=== PATIENT | male | born 1950 | race Caucasian/White ===

== ENCOUNTER → 2017-10-20 10:07 | Outpatient (CLI) | payer MEDICARE, BC, OTHER, SELFPAY ==
[2017-10-20 12:45] LABS: ALB/GLOB Ratio 0.9 RATIO (0.9-2.4); AST(SGOT) 20 U/L (15-37); Alanine Aminotransfer ALT/SGPT 26 U/L (16-61); Albumin, Serum 3.7 g/dL (3.2-5.0); Alkaline Phosphatase 73 U/L (45-117); Anion Gap 6 (5-15); BUN 12 mg/dL (7-18); BUN/Creat Ratio 14.4 RATIO (10-20); Calcium,Total 9.5 mg/dL (8.5-10.1); Chloride 99 mmol/L (98-107); Cholesterol 151 mg/dL (200); Creatinine, Serum 0.83 mg/dL (0.70-1.30); EST Glomerular Filtration Rate 98 mL/min (>60); Est Glom Filt Rate - Afr Amer 118 mL/min (>60); Glucose 136 mg/dL (74-106); High Density Lipoprotein 46 mg/dL; Potassium 4.1 mmol/L (3.5-5.1); Protein, Total 7.7 g/dL (6.4-8.2); Sodium Level 136 mmol/L (136-145); Triglycerides 92 mg/dL; Very Low Density Lipoprotein 18 mg/dL (5-40)
== END ==
PROVIDERS: Family Provider Family Medicine; PCP Family Medicine; Visit Provider Internal Medicine Endocrinology, Diabetes & Metabolism
DX: E11.65 Type 2 diabetes mellitus with hyperglycemia (principal); E78.2 Mixed hyperlipidemia
CPT/HCPCS: 36415; 80053; 80061

== ENCOUNTER → 2018-01-19 10:20 | Outpatient (CLI) | payer MEDICARE, BC, OTHER, SELFPAY ==
[2018-01-19 12:25] LABS: ALB/GLOB Ratio 0.8 RATIO (0.9-2.4); AST(SGOT) 21 U/L (15-37); Alanine Aminotransfer ALT/SGPT 25 U/L (16-61); Albumin, Serum 3.4 g/dL (3.2-5.0); Alkaline Phosphatase 76 U/L (45-117); Anion Gap 8 (5-15); BUN 6 mg/dL (7-18); BUN/Creat Ratio 8.2 RATIO (10-20); Calcium,Total 9.2 mg/dL (8.5-10.1); Chloride 97 mmol/L (98-107); Creatinine, Serum 0.73 mg/dL (0.70-1.30); EST Glomerular Filtration Rate 114 mL/min (>60); Est Glom Filt Rate - Afr Amer 137 mL/min (>60); Glucose 224 mg/dL (74-106); Potassium 3.8 mmol/L (3.5-5.1); Protein, Total 7.4 g/dL (6.4-8.2); Sodium Level 135 mmol/L (136-145)
== END ==
PROVIDERS: Family Provider Family Medicine; PCP Family Medicine; Visit Provider Internal Medicine Endocrinology, Diabetes & Metabolism
DX: E11.65 Type 2 diabetes mellitus with hyperglycemia (principal)
CPT/HCPCS: 36415; 80053

== ENCOUNTER → 2018-04-29 08:26 | Outpatient (CLI) | payer MEDICARE, BC, OTHER, SELFPAY ==
[2018-04-29 11:09] LABS: ALB/GLOB Ratio 0.9 RATIO (0.9-2.4); AST(SGOT) 15 U/L (15-37); Alanine Aminotransfer ALT/SGPT 18 U/L (16-61); Albumin, Serum 3.3 g/dL (3.2-5.0); Alkaline Phosphatase 71 U/L (45-117); Anion Gap 6 (5-15); BUN 12 mg/dL (7-18); BUN/Creat Ratio 16.3 RATIO (10-20); Calcium,Total 8.8 mg/dL (8.5-10.1); Chloride 102 mmol/L (98-107); Creatinine, Serum 0.73 mg/dL (0.70-1.30); EST Glomerular Filtration Rate 113 mL/min (>60); Est Glom Filt Rate - Afr Amer 136 mL/min (>60); Globulin 3.7 g/dL (2.2-4.2); Glucose 145 mg/dL (74-106); Potassium 4.2 mmol/L (3.5-5.1); Sodium Level 139 mmol/L (136-145)
--- OUTSIDE RECORDS SUMMARY | 2018-06-23 19:01 | XMS RPT_ITS ---
:1950 External Reference #:[id number] Author Organization OH[facility] Care Team Providers Name Role Phone Luz Sow Attending Unavailable Korableva, Luz Referring Unavailable Jolliff, Romy Primary Care Unavailable Korableva, Luz Attending Unavailable Korableva, Luz Referring Unavailable Jolliff, Romy Primary Care Unavailable Korableva, Luz Attending Unavailable Korableva, Luz Referring Unavailable Jolliff, Romy Primary Care Unavailable PROBLEMS PROBLEMS DATE TYPE CONDITION / CODE ATTENDING STATUS SOURCE 04/29/2018 Unknown E11.65 - Type 2 Korableva, Active [place] diabetes mellitus [facility] with hyperglycemia / Hospital E11.65(ICD-10) Repository 10/20/2017 Unknown E78.2 - Mixed Korableva, 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 criteria. Please note revised GLUCOSE reference range effective 2017. LAB L501.1000 7-18 mg/dL Normal BUN 12 LAB L501.1100 0.70-1.30 mg/dL Normal CREAT,SERUM 0.73 Result Comment: The validity of the calculated GFR AND GFRAA in patients over 70 years has not been determined. Clinical correlation is essential. LAB L501.1110 >60 mL/min Normal EST GFR 113 Result Comment: Non- GFR Calc LAB L501.1115 >60 mL/min Normal EST GFR - AA 136 Result Comment: GFR Calc LAB L501.1300 10-20 RATIO Normal BUN/CRE 16.3 LAB L501.1500 6.4-8.2 g/dL T Normal PROT 7.0 LAB L501.1800 3.2-5.0 g/dL Normal ALB 3.3 LAB L501.1950 2.2-4.2 g/dL Normal GLOB 3.7 LAB L501.2000 0.9-2.4 RATIO Normal A/G 0.9 LAB L501.2200 8.5-10.1 mg/dL CA Normal 8.8 LAB L501.4100 15-37 U/L Normal AST 15 LAB L501.4305 45-117 U/L Normal ALK P 71 LAB L501.4405 16-61 U/L Normal ALT 18 LAB L501.4600 0.20-1.00 mg/dL T Normal BILI 0.40 LAB L501.5300 136-145 mmol/L NA Normal 139 LAB L501.5600 3.5-5.1 mmol/L K Normal 4.2 LAB L501.5900 98-107 mmol/L CL Normal 102 LAB L501.6100 21.0-32.0 mmol/L Normal CO2 31.0 LAB L501.6200 5-15 Normal GAP 6 Performed By: #### L500.4050 #### [facility] [address] [place], [address] COMPREHENSIVE METABOLIC Collected: 01/19/2018 Status: F Source: [facility] 10:25 AM [facility] REPOSITORY TYPE CODE TESTS RESULT OUT OF RANGE REFERENCE UNITS LAB L501.0100 74-106 mg/dL High GLU 224 Result Comment: Glucose result greater than or equal to 200 mg/dL suggests DIABETES MELLITUS per A.D.A. criteria. Please note revised GLUCOSE reference range effective 2017. LAB L501.1000 7-18 mg/dL Low BUN 6 LAB L501.1100 0.70-1.30 mg/dL Normal CREAT,SERUM 0.73 Result Comment: The validity of the calculated GFR AND GFRAA in patients over 70 years has not been determined. Clinical correlation is essential. LAB L501.1110 >60 mL/min Normal EST GFR 114 Result Comment: Non- GFR Calc LAB L501.1115 >60 mL/min Normal EST GFR - AA 137 Result Comment: GFR Calc LAB L501.1300 10-20 RATIO Low BUN/CRE 8.2 LAB L501.1500 6.4-8.2 g/dL Normal T PROT 7.4 LAB L501.1800 3.2-5.0 g/dL Normal ALB 3.4 LAB L501.1950 2.2-4.2 g/dL Normal GLOB 4.0 LAB L501.2000 0.9-2.4 RATIO Low A/G 0.8 LAB L501.2200 8.5-10.1 mg/dL Normal CA 9.2 LAB L501.4100 15-37 U/L Normal AST 21 LAB L501.4305 45-117 U/L Normal ALK P 76 LAB L501.4405 16-61 U/L Normal ALT 25 LAB L501.4600 0.20-1.00 mg/dL Normal T BILI 0.40 LAB L501.5300 136-145 mmol/L Low NA 135 LAB L501.5600 3.5-5.1 mmol/L Normal K 3.8 LAB L501.5900 98-107 mmol/L Low CL 97 LAB L501.6100 21.0-32.0 mmol/L Normal CO2 30.0 LAB L501.6200 5-15 Normal GAP 8 Performed By: #### L500.4050 #### [facility] [address] [place], [address] COMPREHENSIVE METABOLIC Collected: 10/20/2017 Status: F Source: [facility] 10:15 AM [facility] REPOSITORY TYPE CODE TESTS RESULT OUT OF RANGE REFERENCE UNITS LAB L501.0100 74-106 mg/dL High GLU 136 Result Comment: Fasting Glucose result greater than or equal to 126 mg/dL suggests DIABETES MELLITUS per A.D.A. criteria. Please note revised GLUCOSE reference range effective 2017. LAB L501.1000 7-18 mg/dL Normal BUN 12 LAB L501.1100 0.70-1.30 mg/dL Normal CREAT,SERUM 0.83 Result Comment: The validity of the calculated GFR AND GFRAA in patients over 70 years has not been determined. Clinical correlation is essential. LAB L501.1110 >60 mL/min Normal EST GFR 98 Result Comment: Non- GFR Calc LAB L501.1115 >60 mL/min Normal EST GFR - AA 118 Result Comment: GFR Calc LAB L501.1300 10-20 RATIO Normal BUN/CRE 14.4 LAB L501.1500 6.4-8.2 g/dL T Normal PROT 7.7 LAB L501.1800 3.2-5.0 g/dL Normal ALB 3.7 LAB L501.1950 2.2-4.2 g/dL Normal GLOB 4.0 LAB L501.2000 0.9-2.4 RATIO Normal A/G 0.9 LAB L501.2200 8.5-10.1 mg/dL CA Normal 9.5 LAB L501.4100 15-37 U/L Normal AST 20 LAB L501.4305 45-117 U/L Normal ALK P 73 LAB L501.4405 16-61 U/L Normal ALT 26 LAB L501.4600 0.20-1.00 mg/dL T Normal BILI 0.60 LAB L501.5300 136-145 mmol/L NA Normal 136 LAB L501.5600 3.5-5.1 mmol/L K Normal 4.1 LAB L501.5900 98-107 mmol/L CL Normal 99 LAB L501.6100 21.0-32.0 mmol/L Normal CO2 31.0 LAB L501.6200 5-15 Normal GAP 6 Performed By: #### L500.4050, L500.4100 #### [facility] [address] [place], [place], [address] LIPID PROFILE Collected: 10/20/2017 Status: F Source: [place] 10:15 AM [facility] REPOSITORY TYPE CODE TESTS RESULT OUT OF RANGE REFERENCE UNITS LAB L501.4900 200 mg/dL Normal CHOL 151 Result Comment: <200 mg/dL Desirable 200-240 mg/dL Borderline >240 mg/dL High Risk LAB L501.5000 mg/dL Normal TRIG 92 Result Comment: The drugs N-Acetylcysteine and Metamizole may falsely depress this assay. Serum Triglycerides Reference Interval Normal <150 mg/dL Borderline high 150 - 199 mg/dL High 200 - 499 mg/dL Very High > or = 500 mg/dL LAB L501.6400 mg/dL Normal HDL 46 Result Comment: The drugs N-Acetylcysteine and Metamizole may falsely depress this assay. Reference Range HDL <40 mg/dL Low HDL Cholesterol HDL >or= 60 mg/dL High HDL Cholesterol LAB L501.6500 0-130 mg/dL Normal LDL 87 LAB L501.6600 5-40 mg/dL Normal VLDL 18 Performed By: #### L500.4050, L500.4100 #### [facility] [address] [place], [address] ALLERGIES ALLERGIES No Allergies Records FoundENCOUNTERS ENCOUNTERS ADMIT/DISCHARGE ACCOUNT ADMITTING ENCOUNTER LOCATION SOURCE NUMBER CLASS 04/29/2018 [id number] [facility] 9 [facility] ing:LAB Repository 01/19/2018 [id number] [facility] 7 [facility] ing:MTLAB Repository 10/20/2017 [id number] [facility] 1 [facility] ing:MTLAB Repository PAYERS PAYERS ENCOUNTER GUARANTOR PAYER SUBSCRIBER SOURCE 04/29/2018 CALISTA Sanchez Primary CALISTA Choudhary [id number] W Insurance:MEDICARE SPEALDOB: Community [address] [id number] Repository [phone]: [phone] [id number] [phone] () Date:2018-04-29 04/29/2018 Secondary CALISTA Choudhary Insurance:ANTHEMPolic SPEALDOB: Community y Number: [id number] [id number] Repository Date:[id number], [place] [address]FZ: 04/29/2018 Tertiary CALISTA Choudhary Insurance:AARPPolicy SPEALDOB: Community Number: [id number] [id number] Repository Date:2736-68-99[address], [place] [address]DF: 04/29/2018 Tertiary NOT GIVENUNK [place] Insurance:SELF PAY [facility]: Effective Repository Date:2018-04-29 01/19/2018 LEMUEL Primary CALISTA Choudhary [id number] Insurance:MEDICARE SPEALDOB: Community [address] A [facility] [id number] Number: Repository [id number]: 330 [id number] [phone] () Date:2018-01-19 01/19/2018 Secondary LEMUEL [place] Insurance:ANTHEMPolic SPEALDOB: Community y Number: [id number] [facility] [id number] Repository Date:6364-32-38MW [address], [place] [address]PL: 01/19/2018 Tertiary LEMUEL [place] Insurance:AARPPolicy SPEALDOB: Community Number: [id number] [facility] [id number] Repository Date:[id number], [place] [address]IB: 01/19/2018 Tertiary NOT GIVENUNK [place] Insurance:SELF PAY [facility] Number: Effective Repository Date:2018-01-19 10/20/2017 Lemuel Primary CALISTA Choudhary [id number] Insurance:MEDICARE SPEALDOB: Community [address] A [facility] [id number] Number: Repository [id number]: 330 [id number] [phone] () Date:2017-10-20 10/20/2017 Secondary Lemuel [place] Insurance:ANTHEMPolic SpealDOB: Community y Number: [id number] [facility] [id number] Repository Date:5468-08-96[address]U [address], [place] [address]VA: 10/20/2017 Tertiary LEMUEL [place] Insurance:AARPPolicy SPEALDOB: Community Number: [id number] [facility] [id number] Repository Date:[id number] [address], [place] [address]HC: 10/20/2017 Tertiary NOT GIVENUNK Eduard Insurance:SELF PAY [facility] Number: Effective Repository Date:2017-10-20
== END ==
PROVIDERS: Family Provider Family Medicine; PCP Family Medicine; Referring Provider Internal Medicine Endocrinology, Diabetes & Metabolism; Visit Provider Internal Medicine Endocrinology, Diabetes & Metabolism
DX: E11.65 Type 2 diabetes mellitus with hyperglycemia (principal)
CPT/HCPCS: 36415; 80053

== ENCOUNTER → 2018-07-27 08:30 | Outpatient (CLI) | payer MEDICARE, BC, OTHER, SELFPAY ==
[2018-07-27 10:29] LABS: ALB/GLOB Ratio 0.9 RATIO (0.9-2.4); AST(SGOT) 17 U/L (15-37); Alanine Aminotransfer ALT/SGPT 24 U/L (16-61); Albumin, Serum 3.5 g/dL (3.2-5.0); Alkaline Phosphatase 77 U/L (45-117); Anion Gap 10 (5-15); BUN 13 mg/dL (7-18); BUN/Creat Ratio 15.7 RATIO (10-20); Calcium,Total 9.1 mg/dL (8.5-10.1); Chloride 98 mmol/L (98-107); Cholesterol 122 mg/dL (200); Creatinine, Serum 0.83 mg/dL (0.70-1.30); EST Glomerular Filtration Rate 98 mL/min (>60); Est Glom Filt Rate - Afr Amer 119 mL/min (>60); Globulin 3.8 g/dL (2.2-4.2); Glucose 224 mg/dL (74-106); High Density Lipoprotein 50 mg/dL; Potassium 4.4 mmol/L (3.5-5.1); Protein, Total 7.3 g/dL (6.4-8.2); Sodium Level 136 mmol/L (136-145); Triglycerides 64 mg/dL; Very Low Density Lipoprotein 13 mg/dL (5-40)
[2018-07-27 10:30] LABS: Microalbumin,Random Urine 44.4 mg/L (NO RANGE EST.)
== END ==
PROVIDERS: Family Provider Family Medicine; PCP Family Medicine; Referring Provider Internal Medicine Endocrinology, Diabetes & Metabolism; Visit Provider Internal Medicine Endocrinology, Diabetes & Metabolism
DX: E78.2 Mixed hyperlipidemia (principal); E11.65 Type 2 diabetes mellitus with hyperglycemia
CPT/HCPCS: 36415; 80053; 80061; 82043

== ENCOUNTER → 2018-10-26 | Outpatient (CLI) | payer MEDICARE, BC, OTHER, SELFPAY ==
[2018-10-26 15:58] LABS: ALB/GLOB Ratio 0.8 RATIO (0.9-2.4); AST(SGOT) 13 U/L (15-37); Alanine Aminotransfer ALT/SGPT 25 U/L (16-61); Albumin, Serum 3.3 g/dL (3.2-5.0); Alkaline Phosphatase 74 U/L (45-117); Anion Gap 8 (5-15); BUN 12 mg/dL (7-18); Calcium,Total 9.4 mg/dL (8.5-10.1); Chloride 100 mmol/L (98-107); Creatinine, Serum 0.75 mg/dL (0.70-1.30); EST Glomerular Filtration Rate 110 mL/min (>60); Est Glom Filt Rate - Afr Amer 133 mL/min (>60); Globulin 3.9 g/dL (2.2-4.2); Glucose 115 mg/dL (74-106); Potassium 3.9 mmol/L (3.5-5.1); Protein, Total 7.2 g/dL (6.4-8.2); Sodium Level 137 mmol/L (136-145)
== END | disposition home or self-care (01) ==
LOC: MTLAB 14:31
PROVIDERS: Family Provider Family Medicine; PCP Family Medicine; Referring Provider Internal Medicine Endocrinology, Diabetes & Metabolism; Visit Provider Internal Medicine Endocrinology, Diabetes & Metabolism
DX: E11.65 Type 2 diabetes mellitus with hyperglycemia (principal)
CPT/HCPCS: 36415; 80053

== ENCOUNTER → 2018-11-17 | Outpatient (CLI) | payer MEDICARE, BC, OTHER, SELFPAY ==
--- NOTE | 2018-11-17 16:50 | RAD_ITS ---
STUDY: X-RAY CHEST REASON FOR EXAM: Male, 68 years old. Cough, rib pain TECHNIQUE: PA and lateral views of the chest. COMPARISON: November 08, 2016 chest x-ray FINDINGS: The lungs are clear and expanded. There is no demonstrated pleural abnormality. Normal size heart. Normal mediastinum and edmund. Normal visualized pulmonary arteries. There is atherosclerotic calcification of the aortic arch with tortuosity. There are diffuse degenerative changes of the visualized thoracic spine. Normal visualized ribs, clavicles, and shoulders. There is no demonstrated abnormality of the visualized soft tissue structures of the upper abdomen. RAD/Chest PA and Lateral IMPRESSION: Underexpansion of the lungs. No visualized evidence of acute focal infiltrate. Electronically Signed: Ayana Schafer MD at 17:21 EDT Tel , Service support ,
== END | disposition home or self-care (01) ==
LOC: MTRAD 16:48
PROVIDERS: Family Provider Family Medicine; PCP Family Medicine; Referring Provider Family Medicine; Visit Provider Family Medicine
DX: R05 Cough (principal)
CPT/HCPCS: 71046

== ENCOUNTER → 2019-01-26 | Outpatient (CLI) | payer MEDICARE, BC, OTHER, SELFPAY ==
[2019-01-26 10:31] LABS: ALB/GLOB Ratio 0.8 RATIO (0.9-2.4); AST(SGOT) 20 U/L (15-37); Alanine Aminotransfer ALT/SGPT 26 U/L (16-61); Albumin, Serum 3.3 g/dL (3.2-5.0); Alkaline Phosphatase 73 U/L (45-117); Anion Gap 10 (5-15); BUN 8 mg/dL (7-18); Calcium,Total 8.5 mg/dL (8.5-10.1); Chloride 98 mmol/L (98-107); Cholesterol 119 mg/dL (200); Creatinine, Serum 0.73 mg/dL (0.70-1.30); EST Glomerular Filtration Rate 114 mL/min (>60); Est Glom Filt Rate - Afr Amer 138 mL/min (>60); Globulin 3.9 g/dL (2.2-4.2); Glucose 146 mg/dL (74-106); High Density Lipoprotein 50 mg/dL; Potassium 4.3 mmol/L (3.5-5.1); Protein, Total 7.2 g/dL (6.4-8.2); Sodium Level 136 mmol/L (136-145); Thyroid Stim Hormone (TSH) 1.49 uIU/mL (0.358-3.74); Triglycerides 52 mg/dL; Very Low Density Lipoprotein 10 mg/dL (5-40)
== END | disposition home or self-care (01) ==
LOC: MTLAB 08:30
PROVIDERS: Family Provider Family Medicine; PCP Family Medicine; Referring Provider Internal Medicine Endocrinology, Diabetes & Metabolism; Visit Provider Internal Medicine Endocrinology, Diabetes & Metabolism
DX: E11.65 Type 2 diabetes mellitus with hyperglycemia (principal); E78.2 Mixed hyperlipidemia; E04.9 Nontoxic goiter, unspecified
CPT/HCPCS: 36415; 80053; 80061; 84443

== ENCOUNTER → 2019-04-24 15:50 | Outpatient (CLI) | payer MEDICARE, BC, OTHER, SELFPAY ==
--- NOTE | 2019-04-24 15:55 | RAD_ITS ---
STUDY: X-RAY CHEST REASON FOR EXAM: Male, 69 years old. Cough TECHNIQUE: PA and lateral views of the chest. COMPARISON: October 28, 2018 FINDINGS: There is no new focal consolidation. There are stable left basilar streaky opacities. Normal size heart. Normal mediastinum and edmund. Normal visualized pulmonary arteries. There is atherosclerotic calcification of the aortic arch with tortuosity. There are diffuse degenerative changes of the visualized thoracic spine. Normal visualized ribs, clavicles, and shoulders. There is no demonstrated abnormality of the visualized soft tissue structures of the upper abdomen. RAD/Chest PA and Lateral IMPRESSION: No acute cardiopulmonary process. Electronically Signed: Nidhi Aguilar MD at 22:40 EST Tel , Service support ,
[2019-04-24 17:53] LABS: ALB/GLOB Ratio 0.8 RATIO (0.9-2.4); AST(SGOT) 17 U/L (15-37); Alanine Aminotransfer ALT/SGPT 27 U/L (16-61); Albumin, Serum 3.4 g/dL (3.2-5.0); Alkaline Phosphatase 77 U/L (45-117); Anion Gap 7 (5-15); BUN 9 mg/dL (7-18); BUN/Creat Ratio 10.6 RATIO (10-20); Calcium,Total 9.1 mg/dL (8.5-10.1); Chloride 99 mmol/L (98-107); Creatinine, Serum 0.85 mg/dL (0.70-1.30); EST Glomerular Filtration Rate 95 mL/min (>60); Est Glom Filt Rate - Afr Amer 114 mL/min (>60); Glucose 136 mg/dL (74-106); Potassium 3.9 mmol/L (3.5-5.1); Protein, Total 7.4 g/dL (6.4-8.2); Sodium Level 134 mmol/L (136-145)
== END ==
PROVIDERS: Family Provider Family Medicine; PCP Family Medicine; Referring Provider Internal Medicine Endocrinology, Diabetes & Metabolism; Visit Provider Internal Medicine Endocrinology, Diabetes & Metabolism
DX: R05 Cough (principal); E11.65 Type 2 diabetes mellitus with hyperglycemia
CPT/HCPCS: 36415; 71046; 80053

== ENCOUNTER → 2019-07-26 08:26 | Outpatient (CLI) | payer MEDICARE, BC, OTHER, SELFPAY ==
[2019-07-26 10:17] LABS: ALB/GLOB Ratio 0.9 RATIO (0.9-2.4); AST(SGOT) 17 U/L (15-37); Alanine Aminotransfer ALT/SGPT 23 U/L (16-61); Albumin, Serum 3.6 g/dL (3.2-5.0); Alkaline Phosphatase 71 U/L (45-117); Anion Gap 7 (5-15); BUN 15 mg/dL (7-18); Calcium,Total 9.3 mg/dL (8.5-10.1); Chloride 96 mmol/L (98-107); Cholesterol 122 mg/dL (200); Creatinine, Serum 0.79 mg/dL (0.70-1.30); EST Glomerular Filtration Rate 103 mL/min (>60); Est Glom Filt Rate - Afr Amer 125 mL/min (>60); Globulin 3.8 g/dL (2.2-4.2); Glucose 158 mg/dL (74-106); High Density Lipoprotein 51 mg/dL; Potassium 4.1 mmol/L (3.5-5.1); Protein, Total 7.4 g/dL (6.4-8.2); Sodium Level 132 mmol/L (136-145); Triglycerides 71 mg/dL; Very Low Density Lipoprotein 14 mg/dL (5-40)
[2019-07-26 10:26] LABS: Microalbumin,Random Urine 26.3 mg/L (NO RANGE EST.); Microalbumin:Creatinine Ratio 27.8 mg/g CRE (<30 mg/g CRE)
== END ==
PROVIDERS: PCP Family Medicine; Referring Provider Internal Medicine Endocrinology, Diabetes & Metabolism; Visit Provider Internal Medicine Endocrinology, Diabetes & Metabolism
DX: E11.42 Type 2 diabetes mellitus with diabetic polyneuropathy (principal); E11.65 Type 2 diabetes mellitus with hyperglycemia; E78.2 Mixed hyperlipidemia
CPT/HCPCS: 36415; 80053; 80061; 82043; 82570

== ENCOUNTER → 2019-08-02 11:48 | Outpatient (CLI) | payer MEDICARE, BC, OTHER, SELFPAY ==
--- NOTE | 2019-08-02 11:52 | RAD_ITS ---
STUDY: X-RAY CHEST REASON FOR EXAM: Male, 69 years old. Shortness of breath and cough TECHNIQUE: PA and lateral views of the chest. COMPARISON: None. FINDINGS: Stable elevation of the right hemidiaphragm There are interstitial fibrotic changes of the lungs. There is no demonstrated pleural abnormality. Normal size heart. Normal mediastinum and edmund. Normal visualized pulmonary arteries. There is atherosclerotic calcification of the aortic arch with tortuosity. Normal visualized thoracic spine. Old healed right rib fractures. There is no demonstrated abnormality of the visualized soft tissue structures of the upper abdomen. RAD/Chest PA and Lateral IMPRESSION: Degenerative changes, as described above. No demonstrated acute cardiopulmonary process. Electronically Signed: Jozef Lambert MD at 12:20 EST , Service support ,
[2019-08-02 16:02] LABS: Anion Gap 7 (5-15); Chloride 100 mmol/L (98-107); Potassium 4.1 mmol/L (3.5-5.1); Sodium Level 133 mmol/L (136-145)
== END ==
PROVIDERS: PCP Family Medicine; Referring Provider Internal Medicine Pulmonary Disease; Visit Provider Internal Medicine Pulmonary Disease
DX: R09.02 Hypoxemia (principal); G47.33 Obstructive sleep apnea (adult) (pediatric)
CPT/HCPCS: 36415; 71046; 80051

== ENCOUNTER → 2019-10-26 11:47 | Outpatient (CLI) | payer MEDICARE, BC, OTHER, SELFPAY ==
[2019-10-26 15:51] LABS: ALB/GLOB Ratio 0.9 RATIO (0.9-2.4); AST(SGOT) 16 U/L (15-37); Alanine Aminotransfer ALT/SGPT 21 U/L (16-61); Albumin, Serum 3.4 g/dL (3.2-5.0); Alkaline Phosphatase 76 U/L (45-117); Anion Gap 8 (5-15); BUN 12 mg/dL (7-18); BUN/Creat Ratio 13.1 RATIO (10-20); Calcium,Total 9.1 mg/dL (8.5-10.1); Chloride 100 mmol/L (98-107); Creatinine, Serum 0.92 mg/dL (0.70-1.30); EST Glomerular Filtration Rate 86 mL/min (>60); Est Glom Filt Rate - Afr Amer 105 mL/min (>60); Globulin 3.8 g/dL (2.2-4.2); Glucose 322 mg/dL (74-106); Potassium 4.3 mmol/L (3.5-5.1); Protein, Total 7.2 g/dL (6.4-8.2); Sodium Level 135 mmol/L (136-145)
== END ==
PROVIDERS: PCP Family Medicine; Referring Provider Internal Medicine Endocrinology, Diabetes & Metabolism; Visit Provider Internal Medicine Endocrinology, Diabetes & Metabolism
DX: E11.65 Type 2 diabetes mellitus with hyperglycemia (principal)
CPT/HCPCS: 36415; 80053

== ENCOUNTER 2020-01-14 11:47 | Day surgery (SDC) | payer MEDICARE, BC, OTHER, SELFPAY ==
--- NOTE | 2020-01-14 | LES_PTH ---
PATIENT: CALISTA DEAL LOC: [facility] U#:[id number] AGE/SX: 69/M ROOM: RE01/14/[address]: Dr. Inocente Reza MD : 1950 BED: DIS: 01/14/2020 SPEC #: [id number] RECD: 01/14/20 13:51 STATUS: MINNA PAUL #: [id number] CHRISTOPHER: 01/14/20 00:[address]: Inocente Reza DEPT: SURGICAL PATHOLOGY RECD BY: Fidelina Pérez ENTERED: 01/14/20 14:36 SP TYPE: Lesion OTHR DR: Dr. Romy Slade MD Tissues: Skin of external ear, NOS Procedures: Frozen Section (charge) Frozen Section Add'l ([facility]) Surgery Specimen Level IV HEADER OPERATION: Excision ear lesion PRE-OP DIAGNOSIS: Neoplasm of skin left ear TISSUE SUBMITTED: Left ear helix, short - superior at 12 o'clock, long - lateral at 3 o'clock FROZEN SECTION DIAGNOSIS Left ear helix lesion, biopsy: Consistent with cutaneous horn. Negative for malignancy. SJ:jony 01/14/20 MICROSCOPIC DIAGNOSIS Left ear helix lesion, biopsy: Consistent with cutaneous horn. Lichenoid moderate chronic inflammation. Actinic keratosis and solar elastosis. Negative for malignancy. SJ:jony 01/15/20 MICROSCOPIC DESCRIPTION Slides are reviewed. GROSS DESCRIPTION Received fresh for frozen section diagnosis labeled with the patient's name is a specimen designated left ear helix lesion, short - superior at 12 o'clock, long - lateral at 3 o'clock. The specimen consists of a piece of stout-white skin measuring 0.6 x 0.4 x 0.1 cm. A conical lesion is noted on the skin surface measuring 0.6 x 0.3 x 0.2 cm. The specimen is inked as follows: 12 o'clock - yellow, 6 o'clock - green, 3?o'clock - black, 9 o'clock - blue. The specimen is serially sectioned and submitted for frozen section diagnosis in two cassettes as follows: 1 - 12 and 6 o'clock margin, 2 - entire lesion, rest of the specimen. / RUDY:jony 01/14/20 TC:5 CPT: 62658, 89433, 10684
[2020-01-14 12:29] VITALS: BP 142/87; PULSE 83; RESP 18; TEMP 35.7; O2SAT 95; BMI 43.5
[2020-01-14 12:45] LABS: Bedside Glucose 93 mg/dL (70-110)
--- NOTE | 2020-01-14 13:14 | DCINST_ITS ---
You will use the following diet at home:: Regular Discharge Activity: Return to Normal Activity Additional Activity Instructions:: remove dressing tomorrow morning and discard. Apply antibiotic ointment twice a day. May get the incision wet on Tuesday. Allergies/Adverse Reactions: Allergies No Known Allergies Allergy (Verified 01/14/20 12:27) Primary Care Physician: Romy Slade MD [Primary Care Provider] - Test Results: Test results from this visit will be discussed in further detail at your follow- up appointment, if applicable.
[2020-01-14 13:35] LABS: Bedside Glucose 65 mg/dL (70-110)
[2020-01-14] MEDS: Mupirocin Ointment 22gm Tube 1 APPLIC (13:52)
--- NOTE | 2020-01-14 14:12 | PCM.OPRPT ---
Report of Operation Date of Procedure: 01/14/20 Pre-Operative Diagnosis: left ear lesion Post-Operative Diagnosis: same Surgery/Procedure Performed:: Excision left ear lesion (8x8 mm). intermediate repair Description of Surgical Findings:: cutaneous horn Type of Anesthesia:: Local Drains: none Estimated Blood Loss (mL): minimal Description of Procedure: The patient was taken to the operating room on 01/14/2020. He was placed on the cart in the supine position. The left ear was prepped and draped sterilely. 1% lidocaine with epinephrine was injected into the skin surrounding the lesion. Lesion was excised in an ellipse with a 15 blade. This was sent for frozen section. The wound was irrigated with saline. Hemostasis was achieved with bipolar cautery. Frozen section came back as a cutaneous horn. The subcutaneous tissue was closed with 4-0 Vicryl. Skin was closed with interrupted 6-0 nylon. Bacitracin and a Fannie dressing were then applied. The patient was then taken from the operating room and brought to the holding area in stable condition. Blood loss minimal. Replacement none. Sponge, needle, instrument counts were correct at the end of the procedure.
[2020-01-14 14:22] VITALS: BP 135/62; BP 142/87; PULSE 74; RESP 16; TEMP 36.2; O2SAT 96
== END 2020-01-14 14:28 | disposition home or self-care (01) ==
LOC: SDC 11:48 → AC 11:48
PROVIDERS: Anesthesiology; PCP Family Medicine; Referring Provider Otolaryngology; Visit Provider Otolaryngology
PROC: (CPT 11441; principal; 2020-01-14 13:45)
DX: L57.0 Actinic keratosis (principal); L57.8 Other skin changes due to chronic exposure to nonionizing radiation; L85.8 Other specified epidermal thickening; Z11.59 Encounter for screening for other viral diseases; W89.9XXA Exposure to unspecified man-made visible and ultraviolet light, initial encounter; Y93.9 Activity, unspecified; Y92.9 Unspecified place or not applicable; Y99.9 Unspecified external cause status; Z79.899 Other long term (current) drug therapy
CPT/HCPCS: 11441; 12051; 82962; 87635; 88305; 88331; 88332; 94799; U0003

== ENCOUNTER → 2020-01-23 12:01 | Outpatient (CLI) | payer MEDICARE, BC, OTHER, SELFPAY ==
[2020-01-14 12:29] VITALS: BMI 43.5
[2020-01-23 16:07] LABS: ALB/GLOB Ratio 0.9 RATIO (0.9-2.4); AST(SGOT) 17 U/L (15-37); Alanine Aminotransfer ALT/SGPT 25 U/L (16-61); Albumin, Serum 3.4 g/dL (3.2-5.0); Alkaline Phosphatase 82 U/L (45-117); Anion Gap 6 (5-15); BUN 7 mg/dL (7-18); BUN/Creat Ratio 8.4 RATIO (10-20); Calcium,Total 9.3 mg/dL (8.5-10.1); Chloride 99 mmol/L (98-107); Creatinine, Serum 0.83 mg/dL (0.70-1.30); EST Glomerular Filtration Rate 97 mL/min (>60); Est Glom Filt Rate - Afr Amer 117 mL/min (>60); Globulin 3.9 g/dL (2.2-4.2); Glucose 198 mg/dL (74-106); Potassium 3.8 mmol/L (3.5-5.1); Protein, Total 7.3 g/dL (6.4-8.2); Sodium Level 134 mmol/L (136-145); Thyroid Stim Hormone (TSH) 0.87 uIU/mL (0.358-3.74)
== END ==
PROVIDERS: PCP Family Medicine; Referring Provider Internal Medicine Endocrinology, Diabetes & Metabolism; Visit Provider Internal Medicine Endocrinology, Diabetes & Metabolism
DX: E11.65 Type 2 diabetes mellitus with hyperglycemia (principal); E04.9 Nontoxic goiter, unspecified
CPT/HCPCS: 36415; 80053; 84443

== ENCOUNTER → 2020-07-22 08:18 | Outpatient (CLI) | payer MEDICARE, OTHER, BC, SELFPAY ==
[2020-07-22 10:41] LABS: ALB/GLOB Ratio 0.9 RATIO (0.9-2.4); AST(SGOT) 19 U/L (15-37); Alanine Aminotransfer ALT/SGPT 30 U/L (16-61); Albumin, Serum 3.3 g/dL (3.2-5.0); Alkaline Phosphatase 86 U/L (45-117); Anion Gap 4 (5-15); BUN 10 mg/dL (7-18); BUN/Creat Ratio 13.1 RATIO (10-20); Calcium,Total 9.6 mg/dL (8.5-10.1); Chloride 103 mmol/L (98-107); Cholesterol 172 mg/dL (200); Creatinine, Serum 0.76 mg/dL (0.70-1.30); EST Glomerular Filtration Rate 107 mL/min (>60); Est Glom Filt Rate - Afr Amer 130 mL/min (>60); Globulin 3.8 g/dL (2.2-4.2); Glucose 146 mg/dL (74-106); High Density Lipoprotein 55 mg/dL; Potassium 4.5 mmol/L (3.5-5.1); Protein, Total 7.1 g/dL (6.4-8.2); Sodium Level 138 mmol/L (136-145); Triglycerides 72 mg/dL; Very Low Density Lipoprotein 14 mg/dL (5-40)
[2020-07-22 10:54] LABS: Microalbumin,Random Urine 11.1 mg/L (NO RANGE EST.); Microalbumin:Creatinine Ratio 10.6 mg/g CRE (<30 mg/g CRE)
== END ==
PROVIDERS: PCP Family Medicine; Referring Provider Internal Medicine Endocrinology, Diabetes & Metabolism; Visit Provider Internal Medicine Endocrinology, Diabetes & Metabolism
DX: E11.65 Type 2 diabetes mellitus with hyperglycemia (principal); E78.2 Mixed hyperlipidemia
CPT/HCPCS: 36415; 80053; 80061; 82043; 82570

== ENCOUNTER → 2020-10-28 13:56 | Outpatient (CLI) | payer MEDICARE, OTHER, BC, SELFPAY ==
[2020-10-28 15:39] LABS: Hemoglobin A1c 7.7 % (3.8-5.6)
[2020-10-28 16:12] LABS: ALB/GLOB Ratio 0.8 RATIO (0.9-2.4); AST(SGOT) 24 U/L (15-37); Alanine Aminotransfer ALT/SGPT 28 U/L (16-61); Albumin, Serum 3.1 g/dL (3.2-5.0); Alkaline Phosphatase 81 U/L (45-117); Anion Gap 6 (5-15); BUN 12 mg/dL (7-18); BUN/Creat Ratio 13.8 RATIO (10-20); Calcium,Total 9.5 mg/dL (8.5-10.1); Chloride 98 mmol/L (98-107); Creatinine, Serum 0.87 mg/dL (0.70-1.30); EST Glomerular Filtration Rate 92 mL/min (>60); Est Glom Filt Rate - Afr Amer 111 mL/min (>60); Globulin 4.1 g/dL (2.2-4.2); Glucose 254 mg/dL (74-106); Protein, Total 7.2 g/dL (6.4-8.2); Sodium Level 133 mmol/L (136-145)
== END ==
PROVIDERS: PCP Family Medicine; Referring Provider Internal Medicine Endocrinology, Diabetes & Metabolism; Visit Provider Internal Medicine Endocrinology, Diabetes & Metabolism
DX: E11.65 Type 2 diabetes mellitus with hyperglycemia (principal)
CPT/HCPCS: 36415; 80053; 83036

== ENCOUNTER → 2020-11-17 13:35 | Outpatient (CLI) | payer MEDICARE, OTHER, BC, SELFPAY ==
[2020-11-17 15:28] LABS: ALB/GLOB Ratio 0.8 RATIO (0.9-2.4); AST(SGOT) 18 U/L (15-37); Alanine Aminotransfer ALT/SGPT 31 U/L (16-61); Albumin, Serum 3.3 g/dL (3.2-5.0); Alkaline Phosphatase 85 U/L (45-117); Anion Gap 7 (5-15); BUN 11 mg/dL (7-18); BUN/Creat Ratio 11.5 RATIO (10-20); Calcium,Total 9.3 mg/dL (8.5-10.1); Chloride 99 mmol/L (98-107); Creatinine, Serum 0.96 mg/dL (0.70-1.30); EST Glomerular Filtration Rate 82 mL/min (>60); Est Glom Filt Rate - Afr Amer 99 mL/min (>60); Glucose 154 mg/dL (74-106); Protein, Total 7.3 g/dL (6.4-8.2); Sodium Level 133 mmol/L (136-145)
== END ==
PROVIDERS: PCP Family Medicine
DX: E11.65 Type 2 diabetes mellitus with hyperglycemia (principal)
CPT/HCPCS: 36415; 80053

== ENCOUNTER → 2021-01-22 15:33 | Outpatient (CLI) | payer MEDICARE, OTHER, BC, SELFPAY ==
[2021-01-22 18:15] LABS: Hemoglobin A1c 6.5 % (3.8-5.6)
== END ==
PROVIDERS: PCP Family Medicine
DX: E11.65 Type 2 diabetes mellitus with hyperglycemia (principal)
CPT/HCPCS: 36415; 83036

== ENCOUNTER → 2021-07-23 08:39 | Outpatient (CLI) | payer MEDICARE, OTHER, BC, SELFPAY ==
[2021-07-23 10:30] LABS: AST(SGOT) 17 U/L (15-37); Alanine Aminotransfer ALT/SGPT 19 U/L (16-61); Anion Gap 4 (5-15); BUN 11 mg/dL (7-18); BUN/Creat Ratio 12.3 RATIO (10-20); Calcium,Total 9.3 mg/dL (8.5-10.1); Chloride 103 mmol/L (98-107); Cholesterol 120 mg/dL (200); EST Glomerular Filtration Rate 89 mL/min (>60); Est Glom Filt Rate - Afr Amer 107 mL/min (>60); Glucose 160 mg/dL (74-106); High Density Lipoprotein 48 mg/dL; Potassium 4.5 mmol/L (3.5-5.1); Sodium Level 137 mmol/L (136-145); Triglycerides 64 mg/dL; Very Low Density Lipoprotein 13 mg/dL (5-40)
== END ==
PROVIDERS: PCP Family Medicine
DX: E11.65 Type 2 diabetes mellitus with hyperglycemia (principal); E78.2 Mixed hyperlipidemia
CPT/HCPCS: 36415; 80048; 80061; 83036; 84450; 84460

== ENCOUNTER → 2021-10-22 | Outpatient (CLI) | payer MEDICARE, OTHER, BC, SELFPAY ==
[2021-10-22 10:27] LABS: ALB/GLOB Ratio 0.8 RATIO (0.9-2.4); AST(SGOT) 17 U/L (15-37); Alanine Aminotransfer ALT/SGPT 19 U/L (16-61); Albumin, Serum 3.3 g/dL (3.2-5.0); Alkaline Phosphatase 86 U/L (45-117); Anion Gap 7 (5-15); BUN 13 mg/dL (7-18); BUN/Creat Ratio 17.5 RATIO (10-20); Calcium,Total 9.5 mg/dL (8.5-10.1); Chloride 99 mmol/L (98-107); Cholesterol 125 mg/dL (200); Creatinine, Serum 0.74 mg/dL (0.70-1.30); EST Glomerular Filtration Rate 110 mL/min (>60); Est Glom Filt Rate - Afr Amer 133 mL/min (>60); Globulin 4.2 g/dL (2.2-4.2); Glucose 163 mg/dL (74-106); High Density Lipoprotein 50 mg/dL; Potassium 4.3 mmol/L (3.5-5.1); Protein, Total 7.5 g/dL (6.4-8.2); Sodium Level 135 mmol/L (136-145); Triglycerides 57 mg/dL; Very Low Density Lipoprotein 11 mg/dL (5-40)
[2021-10-22 10:33] LABS: Hemoglobin A1c 6.8 % (3.8-5.6)
== END | disposition home or self-care (01) ==
LOC: MTLAB 07:31
PROVIDERS: PCP Family Medicine
DX: E11.65 Type 2 diabetes mellitus with hyperglycemia (principal); E78.2 Mixed hyperlipidemia
CPT/HCPCS: 36415; 80053; 80061; 83036

== ENCOUNTER → 2022-02-25 | Outpatient (CLI) | payer MEDICARE, OTHER, BC, SELFPAY ==
[2022-02-25 10:23] LABS: Vitamin D,25 Hydroxy 60.1 ng/mL
[2022-02-25 10:25] LABS: Hemoglobin A1c 7.2 % (3.8-5.6)
[2022-02-25 10:29] LABS: Microalbumin,Random Urine 22.2 mg/L (NO RANGE EST.)
[2022-02-25 10:47] LABS: ALB/GLOB Ratio 0.9 RATIO (0.9-2.4); AST(SGOT) 16 U/L (15-37); Alanine Aminotransfer ALT/SGPT 20 U/L (16-61); Albumin, Serum 3.4 g/dL (3.2-5.0); Alkaline Phosphatase 85 U/L (45-117); Anion Gap 8 (5-15); BUN 12 mg/dL (7-18); Calcium,Total 9.8 mg/dL (8.5-10.1); Chloride 101 mmol/L (98-107); Cholesterol 130 mg/dL (200); EST Glomerular Filtration Rate 101 mL/min (>60); Est Glom Filt Rate - Afr Amer 122 mL/min (>60); Globulin 3.8 g/dL (2.2-4.2); Glucose 121 mg/dL (74-106); High Density Lipoprotein 55 mg/dL; Potassium 4.6 mmol/L (3.5-5.1); Protein, Total 7.2 g/dL (6.4-8.2); Sodium Level 138 mmol/L (136-145); Triglycerides 47 mg/dL; Very Low Density Lipoprotein 9 mg/dL (5-40)
== END | disposition home or self-care (01) ==
LOC: MTLAB 08:42
PROVIDERS: PCP Family Medicine
DX: E11.65 Type 2 diabetes mellitus with hyperglycemia (principal); E55.9 Vitamin D deficiency, unspecified; E78.2 Mixed hyperlipidemia
CPT/HCPCS: 36415; 80053; 80061; 82043; 82306; 83036

== ENCOUNTER → 2022-04-26 | Outpatient (CLI) | payer MEDICARE, BC, OTHER, SELFPAY ==
--- NOTE | 2022-04-26 13:52 | NEURO_ITS ---
NCS and/or EMG Patient Report Ordering Doctor: Vagras Campbell DATE OF SERVICE: 04/26/22 Indication: Numbness of the bilateral lower extremities. History of diabetes mellitus. Chronic back and knee pain. Evaluate for peripheral neuropathy. Findings: Nerve conduction studies were performed in the bilateral lower extremities. The right peroneal motor study recording the extensor digitorum brevis showed a markedly reduced amplitude, borderline distal latency and mildly slowed conduction velocity. No conduction block or focal slowing was present across the fibular neck. The right peroneal motor study recording the tibialis anterior showed a reduced amplitude, normal distal latency and normal conduction veloc ity. No conduction block or focal slowing was present across the fibular neck. The right tibial motor study recording the abductor hallucis brevis showed a reduced amplitude and normal distal latency. The conduction velocity could not be calculated due to the absence of a response at the proximal stimulation site. The right sural sensory response was absent. The right superficial peroneal sensory response was absent. The left peroneal motor study recording the extensor digitorum brevis showed a markedly reduced amplitude and normal distal latency. The conduction velocity could not be calculated due to the absence of a response at the proximal stimulation site. The left peroneal motor study recording the tibialis anterior showed a reduced amplitude, normal distal latency and normal conduction velocity. No conduction block or focal slowing was present across the fibular neck. The left tibial motor study recording the abductor hallucis brevis showed a reduced amplitude, normal distal latency and mildly slowed conduction velocity. The left sural sensory response was absent. The left superficial peroneal sensory response was absent. Needle EMG of the lower extremity muscles was omitted given the presence of significant edema and the increased risk of cellulitis in a diabetic patient. Impression: This is a markedly abnormal, but limited study (see above). 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 Fred Le D.O. [facility] Codes Neurology Neurology Interp Codes: 38734-37 [facility] test 9-10 studies (interp)
== END | disposition home or self-care (01) ==
PROVIDERS: PCP Family Medicine; Visit Provider Podiatrist
DX: E11.42 Type 2 diabetes mellitus with diabetic polyneuropathy (principal)
CPT/HCPCS: 95911

== ENCOUNTER → 2022-05-27 | Outpatient (CLI) | payer MEDICARE, OTHER, BC, SELFPAY ==
[2022-05-27 10:29] LABS: Hemoglobin A1c 7.5 % (3.8-5.6)
[2022-05-27 10:40] LABS: ALB/GLOB Ratio 0.9 RATIO (0.9-2.4); AST(SGOT) 13 U/L (15-37); Alanine Aminotransfer ALT/SGPT 19 U/L (16-61); Albumin, Serum 3.1 g/dL (3.2-5.0); Alkaline Phosphatase 89 U/L (45-117); Anion Gap 7 (5-15); BUN 10 mg/dL (7-18); BUN/Creat Ratio 12.5 RATIO (10-20); Calcium,Total 9.1 mg/dL (8.5-10.1); Chloride 97 mmol/L (98-107); Cholesterol 133 mg/dL (200); EST Glomerular Filtration Rate 100 mL/min (>60); Est Glom Filt Rate - Afr Amer 121 mL/min (>60); Globulin 3.4 g/dL (2.2-4.2); Glucose 205 mg/dL (74-106); High Density Lipoprotein 51 mg/dL; Potassium 4.6 mmol/L (3.5-5.1); Protein, Total 6.5 g/dL (6.4-8.2); Sodium Level 134 mmol/L (136-145); Triglycerides 77 mg/dL; Very Low Density Lipoprotein 15 mg/dL (5-40)
== END | disposition home or self-care (01) ==
LOC: MTLAB 09:24
PROVIDERS: PCP Family Medicine
DX: E11.65 Type 2 diabetes mellitus with hyperglycemia (principal); E78.2 Mixed hyperlipidemia
CPT/HCPCS: 36415; 80053; 80061; 83036

== ENCOUNTER → 2022-06-29 | Outpatient (CLI) | payer MEDICARE, BC, OTHER, SELFPAY ==
--- NOTE | 2022-06-29 13:55 | LES_PTH ---
PATIENT: CALISTA DEAL LOC: [facility] U#:[id number] AGE/SX: 72/M ROOM: RE06/29/[address]: Dr. Inocente Reza MD : 1950 BED: DIS: 06/29/2022 SPEC #: [id number] RECD: 06/29/22 15:15 STATUS: MINNA MILLER #: [id number] CHRISTOPHER: 06/29/22 13:[address]: Inocente Reza DEPT: SURGICAL PATHOLOGY RECD BY: Oksana Sanz ENTERED: 06/30/22 10:45 SP TYPE: Lesion OTHR DR: Dr. Romy Slade MD [facility] Tissues: Skin of face, NOS Procedures: Special Stain Group I Surgery Specimen Level IV GMS Stain (control) HEADER OPERATION: Excision left cheek lesion PRE-OP DIAGNOSIS: Left cheek neoplasm TISSUE SUBMITTED: Left cheek (skin) neoplasm MICROSCOPIC DIAGNOSIS Left cheek (skin) lesion, excisional biopsy: Verrucous keratosis with moderate atypia in the background of cutaneous horn. Extensive solar elastosis. Negative for malignancy. See comment. RUDY:jony 07/01/2022 COMMENT Special stain for fungi is positive for numerous fungal organisms (yeast) in the superficial keratin layers; matched control is appropriate. Case has been reviewed in consultation with Dr. Michel who concurs with the above diagnosis. IDC:AM MICROSCOPIC DESCRIPTION Slides are reviewed. GROSS DESCRIPTION Received in fixative is one container labeled with the patient's name and designated left cheek skin neoplasm. The specimen consists of a piece of stout-white skin measuring 1.2 x 0.3 x 0.8 cm. There is a raised conical lesion on the surface measuring 0.7 x 0.4 x 0.5 cm. The specimen is inked, serially sectioned and submitted entirely in one cassette. / RUDY:jony 06/30/2022 TC:5 CPT: 88249, 35697
== END | disposition home or self-care (01) ==
LOC: LABSPEC 16:17
PROVIDERS: PCP Family Medicine; Visit Provider Otolaryngology
DX: L98.9 Disorder of the skin and subcutaneous tissue, unspecified (principal)
CPT/HCPCS: 88305; 88312

== ENCOUNTER → 2022-08-31 | Outpatient (CLI) | payer MEDICARE, OTHER, BC, SELFPAY ==
[2022-08-31 13:01] LABS: Hemoglobin A1c 7.7 % (3.8-5.6)
[2022-08-31 13:02] LABS: ALB/GLOB Ratio 0.8 RATIO (0.9-2.4); AST(SGOT) 19 U/L (15-37); Alanine Aminotransfer ALT/SGPT 25 U/L (16-61); Albumin, Serum 3.4 g/dL (3.2-5.0); Alkaline Phosphatase 101 U/L (45-117); Anion Gap 4 (5-15); BUN 14 mg/dL (7-18); BUN/Creat Ratio 15.9 RATIO (10-20); Calcium,Total 9.2 mg/dL (8.5-10.1); Chloride 101 mmol/L (98-107); Cholesterol 128 mg/dL (200); Creatinine, Serum 0.88 mg/dL (0.70-1.30); EST Glomerular Filtration Rate 90 mL/min (>60); Est Glom Filt Rate - Afr Amer 109 mL/min (>60); Glucose 175 mg/dL (74-106); High Density Lipoprotein 52 mg/dL; Potassium 4.4 mmol/L (3.5-5.1); Protein, Total 7.4 g/dL (6.4-8.2); Sodium Level 133 mmol/L (136-145); Triglycerides 61 mg/dL; Very Low Density Lipoprotein 12 mg/dL (5-40)
== END | disposition home or self-care (01) ==
LOC: MTLAB 10:22
PROVIDERS: PCP Family Medicine; Referring Provider Internal Medicine Endocrinology, Diabetes & Metabolism; Visit Provider Internal Medicine Endocrinology, Diabetes & Metabolism
DX: E11.65 Type 2 diabetes mellitus with hyperglycemia (principal); E78.2 Mixed hyperlipidemia
CPT/HCPCS: 36415; 80053; 80061; 83036

== ENCOUNTER → 2022-10-05 | Outpatient (CLI) | payer MEDICARE, OTHER, BC, SELFPAY ==
[2022-10-05 13:00] LABS: Vitamin B12 323 pg/mL (211-911)
[2022-10-05 13:38] LABS: Thyroid Stim Hormone (TSH) 1.36 uIU/mL (0.358-3.74)
[2022-10-08 03:07] LABS: Free Kappa Light Chains 20.6 mg/L (3.3-19.4); Vitamin B1, Thiamine 114.2 nmol/L (66.5-200.0)
== END | disposition home or self-care (01) ==
PROVIDERS: PCP Family Medicine; Referring Provider Psychiatry & Neurology Neurology; Visit Provider Psychiatry & Neurology Neurology
DX: G62.9 Polyneuropathy, unspecified (principal); I10 Essential (primary) hypertension
CPT/HCPCS: 36415; 82607; 82746; 83883; 84425; 84443

== ENCOUNTER → 2022-12-07 | Outpatient (CLI) | payer MEDICARE, OTHER, BC, SELFPAY ==
[2022-12-07 10:59] LABS: Hemoglobin A1c 7.9 % (3.8-5.6)
[2022-12-07 11:41] LABS: ALB/GLOB Ratio 0.8 RATIO (0.9-2.4); AST(SGOT) 22 U/L (15-37); Alanine Aminotransfer ALT/SGPT 25 U/L (16-61); Albumin, Serum 3.1 g/dL (3.2-5.0); Alkaline Phosphatase 83 U/L (45-117); Anion Gap 6 (5-15); BUN 8 mg/dL (7-18); BUN/Creat Ratio 9.3 RATIO (10-20); Calcium,Total 9.2 mg/dL (8.5-10.1); Chloride 98 mmol/L (98-107); Cholesterol 124 mg/dL (200); Creatinine, Serum 0.86 mg/dL (0.70-1.30); EST Glomerular Filtration Rate 93 mL/min (>60); Est Glom Filt Rate - Afr Amer 112 mL/min (>60); Globulin 3.8 g/dL (2.2-4.2); Glucose 194 mg/dL (74-106); High Density Lipoprotein 49 mg/dL; Potassium 4.1 mmol/L (3.5-5.1); Protein, Total 6.9 g/dL (6.4-8.2); Sodium Level 132 mmol/L (136-145); Triglycerides 59 mg/dL; Very Low Density Lipoprotein 12 mg/dL (5-40)
[2022-12-07 16:52] LABS: Microalbumin,Random Urine 20.8 mg/L (NO RANGE EST.); Microalbumin:Creatinine Ratio 21.9 mg/g CRE (<30 mg/g CRE)
== END | disposition home or self-care (01) ==
LOC: MTLAB 09:16
PROVIDERS: PCP Family Medicine; Referring Provider Internal Medicine Endocrinology, Diabetes & Metabolism; Visit Provider Internal Medicine Endocrinology, Diabetes & Metabolism
DX: E11.65 Type 2 diabetes mellitus with hyperglycemia (principal); E78.2 Mixed hyperlipidemia
CPT/HCPCS: 36415; 80053; 80061; 82043; 82570; 83036

== ENCOUNTER → 2022-12-15 | Outpatient (CLI) | payer MEDICARE, BC, OTHER, SELFPAY ==
--- NOTE | 2022-12-15 14:38 | NEURO ---
NCS and/or EMG Patient Report Ordering Doctor: Hung Jameson DATE OF SERVICE: 12/15/22 Aaron presents for electrodiagnostic testing of the upper limbs. He has numbness and tingling in the upper limbs. Electrodiagnostic Findings: Left median motor nerve demonstrates prolonged latency with normal amplitude and reduced conduction velocity. Right median motor nerve demonstrates prolonged distal latency with reduced amplitude and reduced conduction velocity. Left ulnar motor response is within normal limits bilaterally, including conduction across the elbow. Prolonged median and ulnar F-wave bilaterally. Absent right median sensory latency at the wrist. Absent right median palmar latency. Prolonged left median palmar latency. Needle EMG testing was performed in the upper limbs. No evidence of denervation was noted in any muscles tested. There are normal motor unit action potentials. Electrodiagnostic impression: This is an abnormal study in the upper limbs 1. Electrodiagnostic findings suggestive of bilateral median mononeuropathy. This is consistent with a moderate left carpal tunnel syndrome and a severe right carpal tunnel syndrome. 2. No electrodiagnostic evidence is noted for ulnar neuropathy, including cubital tunnel syndrome. 3. No electrodiagnostic evidence is noted for cervical radiculopathy.
== END | disposition home or self-care (01) ==
LOC: PSN 12:06
PROVIDERS: PCP Family Medicine; Referring Provider Psychiatry & Neurology Neurology; Visit Provider Psychiatry & Neurology Neurology
DX: G56.03 Carpal tunnel syndrome, bilateral upper limbs (principal); G62.9 Polyneuropathy, unspecified
CPT/HCPCS: 95886; 95913

== ENCOUNTER → 2023-03-14 | Outpatient (CLI) | payer MEDICARE, BC, OTHER, SELFPAY ==
[2023-03-14 15:40] LABS: Hemoglobin A1c 7.7 % (3.8-5.6)
[2023-03-14 15:46] LABS: ALB/GLOB Ratio 0.8 RATIO (0.9-2.4); AST(SGOT) 17 U/L (15-37); Alanine Aminotransfer ALT/SGPT 24 U/L (16-61); Albumin, Serum 3.3 g/dL (3.2-5.0); Alkaline Phosphatase 83 U/L (45-117); Anion Gap 7 (5-15); BUN 16 mg/dL (7-18); BUN/Creat Ratio 19.1 RATIO (10-20); Calcium,Total 9.8 mg/dL (8.5-10.1); Chloride 101 mmol/L (98-107); Cholesterol 132 mg/dL (200); Creatinine, Serum 0.84 mg/dL (0.70-1.30); EST Glomerular Filtration Rate 95 mL/min (>60); Est Glom Filt Rate - Afr Amer 115 mL/min (>60); Globulin 4.1 g/dL (2.2-4.2); Glucose 225 mg/dL (74-106); High Density Lipoprotein 50 mg/dL; Potassium 4.2 mmol/L (3.5-5.1); Protein, Total 7.4 g/dL (6.4-8.2); Sodium Level 135 mmol/L (136-145); Triglycerides 84 mg/dL; Very Low Density Lipoprotein 17 mg/dL (5-40)
== END | disposition home or self-care (01) ==
PROVIDERS: PCP Family Medicine; Referring Provider Internal Medicine Endocrinology, Diabetes & Metabolism; Visit Provider Internal Medicine Endocrinology, Diabetes & Metabolism
DX: E11.65 Type 2 diabetes mellitus with hyperglycemia (principal); E78.2 Mixed hyperlipidemia
CPT/HCPCS: 36415; 80053; 80061; 83036

== ENCOUNTER → 2023-03-18 | Outpatient (CLI) | payer MEDICARE, BC, OTHER, SELFPAY ==
[2023-03-22 14:08] LABS: Albumin 3.4 g/dL (2.9-4.4); Alpha-1-Globulins 0.3 g/dL (0.0-0.4); Alpha-2-Globulins 0.9 g/dL (0.4-1.0); Gamma Globulin 0.8 g/dL (0.4-1.8); Immunoglobulin A 189 mg/dL (61-437); Immunoglobulin G 950 mg/dL (603-1613); Immunoglobulin M 27 mg/dL (15-143); PROEL- TOTAL PROTEIN 6.5 g/dL (6.0-8.5)
== END | disposition home or self-care (01) ==
LOC: MTLAB 13:23
PROVIDERS: PCP Family Medicine; Referring Provider Psychiatry & Neurology Neurology; Visit Provider Psychiatry & Neurology Neurology
DX: G62.9 Polyneuropathy, unspecified (principal)
CPT/HCPCS: 36415; 82784; 84165; 86334; 86335

== ENCOUNTER → 2023-06-16 | Outpatient (CLI) | payer MEDICARE, BC, OTHER, SELFPAY ==
[2023-06-16 12:57] LABS: ALB/GLOB Ratio 0.9 RATIO (0.9-2.4); AST(SGOT) 20 U/L (15-37); Alanine Aminotransfer ALT/SGPT 23 U/L (16-61); Albumin, Serum 3.3 g/dL (3.2-5.0); Alkaline Phosphatase 83 U/L (45-117); Anion Gap 4 (5-15); BUN 11 mg/dL (7-18); BUN/Creat Ratio 12.6 RATIO (10-20); Calcium,Total 9.4 mg/dL (8.5-10.1); Chloride 102 mmol/L (98-107); Cholesterol 157 mg/dL (200); Creatinine, Serum 0.87 mg/dL (0.70-1.30); EST Glomerular Filtration Rate 91 mL/min (>60); Est Glom Filt Rate - Afr Amer 110 mL/min (>60); Globulin 3.7 g/dL (2.2-4.2); Glucose 148 mg/dL (74-106); High Density Lipoprotein 49 mg/dL; Potassium 4.4 mmol/L (3.5-5.1); Sodium Level 137 mmol/L (136-145); Triglycerides 88 mg/dL; Very Low Density Lipoprotein 18 mg/dL (5-40)
[2023-06-16 13:51] LABS: Hemoglobin A1c 7.4 % (3.8-5.6)
[2023-06-16 14:26] LABS: Vitamin D,25 Hydroxy 55.2 ng/mL
== END | disposition home or self-care (01) ==
LOC: MTLAB 10:10
PROVIDERS: PCP Family Medicine; Referring Provider Internal Medicine Endocrinology, Diabetes & Metabolism; Visit Provider Internal Medicine Endocrinology, Diabetes & Metabolism
DX: E11.65 Type 2 diabetes mellitus with hyperglycemia (principal); E78.2 Mixed hyperlipidemia; E55.9 Vitamin D deficiency, unspecified
CPT/HCPCS: 36415; 80053; 80061; 82306; 83036

== ENCOUNTER → 2023-06-27 | Outpatient (CLI) | payer MEDICARE, BC, OTHER, SELFPAY ==
--- NOTE | 2023-06-27 12:34 | RAD_ITS ---
STUDY: X-RAY - LEFT ELBOW REASON FOR EXAM: Male, 73 years old. INJURY TECHNIQUE: 4 view(s) of the elbow. COMPARISON: None. FINDINGS: Normal visualized humerus, radius and ulna. There is degenerative arthrosis of the radiocapitellar and ulnotrochlear articulations. The soft tissue structures are unremarkable. Enthesophyte of the triceps tendon insertion is present. RAD/Elbow min 3 Views IMPRESSION: Degenerative changes with no evidence of acute fracture or dislocation. Electronically Signed: Ortiz Crespo DO at 17:27 EST ,
--- OUTSIDE RECORDS SUMMARY | 2023-06-27 12:56 | XMS RPT_ITS | CCD ---
Author Name Unknown Address [address] [place] [address] Organization [facility] Care Team Providers Care Liquefaction Supervisor Name Role Phone TONY SINGH, DR ARREOLA Primary Care Physician ROXANNA JENKINS Attending Unavailable TONY MONTILLA, DR. ARREOLA Primary Care Unavailable JULIEN ARNDT Attending Unavailable TONY MONTILLA, DR. ARREOLA Primary Care Unavailable JULIEN ARNDT Referring Unavailable Medications Current Medications Medication Drug Class(es) Dates Sig (Normalized) Sig (Original) Albuterol (Eqv-ProAir HFA) 90 mcg/inh inhalation aerosol (1 source) Start: 05-08-2022 Albuterol (Eqv-ProAir HFA) 90 mcg/inh inhalation aerosol 0 Refill(s) Start Date: 05/08/22 Status: Ordered amLODIPine 10 mg oral tablet (1 source) Dihydropyridine Calcium Channel Dennis Start: 05-08-2022 amLODIPine 10 mg oral tablet 0 Refill(s) Start Date: 05/08/22 Status: Ordered brimonidine tartrate 2 mg/ml / timolol 5 mg/ml ophthalmic solution (1 source) alpha-Adrenergic Agonist, beta-Adrenergic Dennis Start: 05-08-2022 brimonidine-timolol 0.2%-0.5% ophthalmic solution 0 Refill(s) Start Date: 05/08/22 Status: Ordered Codeine / Guaifenesin (1 source) Opioid Agonist Start: 05-08-2022 End: 05-09-2022 Robitussin AC use Guaiatussin AC See Instructions, Oral, # 240 mL, 0 Refill(s), Bronchitis Influenza A (H1N1), 106.9 Start Date: 05/08/22 Stop Date: 05/09/22 Status: Ordered ergocalciferol 1.25 mg oral capsule (1 source) Provitamin D2 Compound Start: 05-08-2022 ergocalciferol 50,000 intl units (1.25 mg) oral capsule 0 Refill(s) Start Date: 05/08/22 Status: Ordered FREESTYLE AMRK 2 SENSOR (1 source) Start: 05-08-2022 FREESTYLE MARK 2 SENSOR FREESTYLE MARK 2 SENSOR, 0 Refill(s), 106.9 Start Date: 05/08/22 Status: Ordered metoprolol tartrate 25 mg oral tablet (1 source) beta-Adrenergic Dennis Start: 05-08-2022 Metoprolol Succinate ER 25 mg oral TABLET extended release 0 Refill(s) Start Date: 05/08/22 Status: Ordered Misc Medication (3 sources) Start: 06-07-2015 Misc Medication 0 Refill(s) Start Date: 06/07/15 Status: Ordered naproxen 500 mg oral tablet (2 sources) Nonsteroidal Anti-inflammatory Drug Start: 05-13-2021 End: 05-20-2021 naproxen 500 mg oral tablet Dose : 500 mg = 1 tab(s), Oral, BID, X 7 day(s), # 14 tab(s), 0 Refill(s), 05/20/21 0:37:00 EST Start Date: 05/13/21 Stop Date: 05/20/21 Status: Ordered ofloxacin 3 mg/ml ophthalmic solution (1 source) Quinolone Antimicrobial Start: 05-08-2022 ofloxacin 0.3% ophthalmic solution 0 Refill(s) Start Date: 05/08/22 Status: Ordered oseltamivir 75 mg oral capsule (1 source) Neuraminidase Inhibitor Start: 05-08-2022 End: 05-13-2022 Tamiflu 75 mg oral capsule Dose : 75 mg = 1 cap(s), Oral, BID, X 5 day(s), # 10 cap(s), 0 Refill(s), 05/13/22 14:40:00 EST, Bronchitis Influenza A (H1N1) Start Date: 05/08/22 Stop Date: 05/13/22 Status: Ordered prednisoLONE acetate 10 mg/ml ophthalmic suspension (1 source) Corticosteroid Start: 05-08-2022 prednisoLONE acetate 1% ophthalmic suspension 0 Refill(s) Start Date: 05/08/22 Status: Ordered valsartan 160 mg oral tablet (1 source) Angiotensin 2 Receptor Dennis Start: 05-08-2022 valsartan 160 mg oral tablet 0 Refill(s) Start Date: 05/08/22 Status: Ordered Problems Problem Classification Problem Date Documented Date Episodic/Chronic Chronic obstructive pulmonary disease and bronchiectasis (1 source) Bronchitis; Translations: [Bronchitis, not specified as acute or chronic] Onset: 05-08-2022 Episodic Diabetes mellitus without complication (3 sources) Diabetes mellitus 06-07-2015 Chronic Disorders of lipid metabolism (3 sources) Hyperlipidemia 06-07-2015 Chronic Essential hypertension (3 sources) Hypertensive disorder 06-07-2015 Chronic Influenza (1 source) Influenza; Translations: [Influenza due to other identified influenza virus with other respiratory manifestations] Onset: 05-08-2022 Episodic Osteoarthritis (1 source) Osteoarthritis; Translations: [Unspecified osteoarthritis, unspecified site] Onset: 05-12-2021 Chronic Other connective tissue disease (1 source) Foot pain; Translations: [Pain in unspecified foot] Onset: 03-10-2021 Episodic Results Test Name Value Interpretation Reference Range Facil ity Vital Signs Date Time Vital Sign Value Performing Clinician Feii gracie 05-08-2022 11:11-0500 Body temperature 98.96 [degF] ROXANNA JENKINS MD [facility] 05-08-2022 11:11-0500 Diastolic Blood Pressure Non-Invasive 79 1 ROXANNA JENKINS MD [facility] 05-08-2022 11:11-0500 Heart rate 93 /min ROXANNA JENKINS MD [facility] 05-08-2022 11:11-0500 Respiratory rate 24 /min ROXANNA JENKINS MD [facility] 05-08-2022 11:11-0500 Systolic Blood Pressure Non-Invasive 160 1 ROXANNA JENKINS MD [facility] 12-15-2021 01:48-0500 Diastolic blood pressure 76 mm[Hg] KRISTI REICHFIELD DO [facility] 05-13-2021 01:48-0500 Heart rate 92 /min KRISTI REICHFIELD DO [facility] 05-13-2021 01:48-0500 Respiratory rate 20 /min KRISTI REICHFIELD DO [facility] 05-13-2021 01:48-0500 Systolic blood pressure 168 mm[Hg] KRISTI REICHFIELD DO [facility] 05-12-2021 22:17-0500 Diastolic blood pressure 68 mm[Hg] KRISTI REICHFIELD DO [facility] 05-12-2021 22:17-0500 Heart rate 87 /min KRISTI REICHFIELD DO [facility] 05-12-2021 22:17-0500 Respiratory rate 16 /min KRISTI REICHFIELD DO [facility] 05-12-2021 22:17-0500 Systolic blood pressure 131 mm[Hg] KRISTI REICHFIELD DO [facility] 05-12-2021 19:36-0500 Body height 188 cm KRISTI REICHFIELD DO [facility] 05-12-2021 19:36-0500 Body temperature 99.14 [degF] KRISTI REICHFIELD DO [facility] 05-12-2021 19:36-0500 Body weight 106.9 kg KRISTI REICHFIELD DO [facility] 05-12-2021 19:36-0500 Diastolic blood pressure 82 mm[Hg] KRISTI REICHFIELD DO [facility] 05-12-2021 19:36-0500 Heart rate 92 /min KRISTI REICHFIELD DO [facility] 05-12-2021 19:36-0500 Respiratory rate 18 /min KRISTI REICHFIELD DO [facility] 05-12-2021 19:36-0500 Systolic blood pressure 159 mm[Hg] KRISTI REICHFIELD DO [facility] 03-10-2021 12:28-0400 Body height 188 cm DHEERAJ MANSFIELD MD [facility] 03-10-2021 12:28-0400 Body temperature 98.24 [degF] DHEERAJ MANSFIELD MD [facility] 03-10-2021 12:28-0400 Body weight 152.7 kg DHEERAJ MANSFIELD MD [facility] 03-10-2021 12:28-0400 Diastolic blood pressure 71 mm[Hg] DHEERAJ MANSFIELD MD [facility] 03-10-2021 12:28-0400 Heart rate 91 /min DHEERAJ MANSFIELD MD [facility] 03-10-2021 12:28-0400 Respiratory rate 18 /min DHEERAJ MANSFIELD MD [facility] 03-10-2021 12:28-0400 Systolic blood pressure 143 mm[Hg] DHEERAJ MANSFIELD MD [facility] Encounters Encounter Date Encounter Type Care Provider Facility Start: 05-08-2022 End: 05-08-2022 Emergency department patient visit ROXANNA JENKINS Facility:B Start: 05-08-2022 End: 05-08-2022 Emergency department patient visit ROXANNA JENKINS MD [facility] Start: 07-06-2021 End: 11-27-2021 ambulatory JULIEN STACK Facility:[facility] Start: 05-12-2021 End: 05-13-2021 Emergency department patient visit KRISTI PRITESH COTTO [facility] Start: 03-10-2021 End: 03-10-2021 Emergency department patient visit DHEERAJ MANSFIELD MD [facility] Procedures Date Procedure Procedure Detail Performing Clinician Glaucoma (disorder) DHEERAJ GRULLON MD Payers Date Payer Category Payer Medicare [id number] 2021 Private Health Insurance [id number] 2021 Unknown [id number] 1950 Unknown [id number] 1950 Unknown [id number] Social History Date Type Detail Facility Start: 03-10-2021 Ex-smoker (finding) [facility]igned At [facility] Functional Status Date Assessment Result Facility 05-08-2022 Functional Status Standard Safet y ID band on, Call device within reach, Bed in low position, Wheels locked, Upper/Half-Length side-rails up, Phone within reach, personal items within reach, Assistive devices within reach, Toileting device within reach, Bedside Cart Locked, Visitor at bedside, Safety level maintained [facility] Mental Status Date Assessment Result Facility 05-08-2022 Mental Status Orientation Oriented x 4 [facility] Discharge instructions 05-08-2022 Note Date & Type Note Facility 05-08-2022 Hospital Discharg e instructions Patient Education 05/08/2022 14:40:25 Influenza (Adult) Influenza (Adult) Influenza is also called the flu. It is a viral illness that affects the air passages of your lungs. It is different from the common cold. The flu can easily be passed from one to person to another. It may be spread through the air by coughing and sneezing. Or it can be spread by touching the sick person and then touching your own eyes, nose, or mouth. The flu starts 1 to 3 days after you are exposed to the flu virus. It may last for 1 to 2 weeks but many people feel tired or fatigued for many weeks afterward. You usually don t need to take antibiotics unless you have a complication. This might be an ear or sinus infection or pneumonia. Symptoms of the flu may be mild or severe. They can include extreme tiredness (wanting to stay in bed all day), chills, fevers, muscle aches, soreness with eye movement, headache, and a dry, hacking cough. Home care Follow these guidelines when caring for yourself at home: Avoid being around cigarette smoke, whether yours or other people s. Acetaminophen or ibuprofen will help ease your fever, muscle aches, and headache. Don t give aspirin to anyone younger than 18 who has the flu. Aspirin can harm the liver. Nausea and loss of appetite are common with the flu. Eat light meals. Drink 6 to 8 glasses of liquids every day. Good choices are water, sport drinks, soft drinks without caffeine, juices, tea, and soup. Extra fluids will also help loosen secretions in your nose and lungs. Kekr-xxh-jttseof cold medicines will not make the flu go away faster. But the medicines may help with coughing, sore throat, and congestion in your nose and sinuses. Don t use a decongestant if you have high blood pressure. Stay home until your fever has been gone for at least 24 hours without using medicine to reduce fever. Follow-up care Follow up with your healthcare provider, or as advised, if you are not getting better over the next week. If you are age 65 or older, talk with your provider about getting a pneumococcal vaccine every 5 years. You should also get this vaccine if you have chronic asthma or COPD. All adults should get a flu vaccine every fall. Ask your provider about this. When to seek medical advice Call your healthcare provider right away if any of these occur: Cough with lots of colored mucus (sputum) or blood in your mucus Chest pain, shortness of breath, wheezing, or trouble breathing Severe headache, or face, neck, or ear pain New rash with fever Fever of 100.4 F (38 C) or higher, or as directed by your healthcare provider Confusion, behavior change, or seizure Severe weakness or dizziness You get a new fever or cough after getting better for a few days [id number] [employer]. [address] [place] [address], [place] [address]. All rights reserved. This information is not intended as a substitute for professional medical care. Always follow your healthcare professional's instructions. Follow Up Care 05/08/2022 11:01:26 With:ELBA JIMENEZ MD Address: [address] [place] [id number]- When:2-4 days With:Go to emergency room if symptoms worsen Address:Unknown When:2-4 days [facility]et Clinical Note 05-08-2022 Note Date & Type Note Facility 05-08-2022 Note Discharge Instructions Thank you for allowing [facility] to assist you with your healthcare needs. The following is important discharge information regarding your hospital visit. Diagnosis from Today's Visit Bronchitis Influenza A (H1N1) Cough What to Do Next Instructions from Your Care Team You have influenza A. Rest. Start Tamiflu immediately. Cough medicine as needed. Follow-up with your doctor, return to ED if worse. Use your inhalers as needed. No qualifying data available. Post Acute Orders No qualifying data available. You Need to Schedule the Following Appointments Follow Up with ELBA JIMENEZ MD When Within 2-4 days Where: [address] [place], [place] [id number]- Follow Up with Go to emergency room if symptoms worsen When Within 2-4 days Allergies NKA Medications Please ask your primary doctor or pharmacist before taking any other medication not listed, including over the counter drugs, herbal medications, vitamins and or supplements as they may interact with your home medications. What How Much When Why Instructions Last Dose New codeine-guaifenesin (Robitussin AC use Guaiatussin AC ) See instructions Bronchitis Influenza A (H1N1) Oral Printed Prescription New oseltamivir (Tamiflu 75 mg oral capsule) 1 cap by mouth Two (2) times a day Bronchitis Influenza A (H1N1) Duration: 5 Days Printed Prescription Unchanged albuterol (Albuterol (Eqv-ProAir HFA) 90 mcg/ inh inhalation aerosol) Unchanged amLODIPine (amLODIPine 10 mg oral tablet) Unchanged brimonidine-timolol ophthalmic (brimonidine-timolol 0.2%-0.5% ophthalmic solution) Unchanged ergocalciferol (ergocalciferol 50,000 intl units (1.25 mg) oral capsule) Unchanged metoprolol (Metoprolol Succinate ER 25 mg oral TABLET extended release) Unchanged Misc Medication Unchanged Misc Medication (FREESTYLE MARK 2 SENSOR) Unchanged ofloxacin ophthalmic (ofloxacin 0.3% ophthalmic solution) Unchanged prednisoLONE ophthalmic (prednisoLONE acetate 1% ophthalmic suspension) Unchanged valsartan (valsartan 160 mg oral tablet) Please take this list to your next doctor s visit. Bring all medications you take, including over the counter medications, herbals and other supplements with you to your doctor s visit. Patients and families are reminded to discard old lists and to update any records with all medication providers or retail pharmacies. Medication Leaflets codeine and guaifenesin (KALE marialuisa and korina FEN a sin) Allfen CD, Cheracol with Codeine, Cheratussin AC, Codar GF, Duraganidin NR, Guaiatussin AC, Iophen-C NR, Mar-cof CG, M-Clear, Mytussin AC, Relcof C What is the most important information I should know about codeine and guaifenesin? Codeine can slow or stop your breathing, and may be habit-forming. MISUSE OF THIS MEDICINE CAN CAUSE ADDICTION, OVERDOSE, OR , especially in a child or other person using the medicine without a prescription. Do not give this medicine to anyone under 18. What is codeine and guaifenesin? Codeine is a narcotic cough suppressant. It affects the signals in the brain that trigger cough reflex. Guaifenesin is an expectorant. It helps loosen congestion in your chest and throat, making it easier to cough out through your mouth. Codeine and guaifenesin is a combination medicine used to treat cough and chest congestion caused by allergies, the common cold, or the flu. This medicine will not treat a cough that is caused by smoking, asthma, or emphysema. Codeine and guaifenesin may also be used for purposes not listed in this medication guide. What should I discuss with my healthcare provider before taking codeine and guaifenesin? You should not take this medicine if you are allergic to codeine or guaifenesin. In some people, codeine breaks down rapidly in the liver and reaches higher than normal levels in the body. This can cause dangerously slow breathing and may cause , especially in a child. Do not give this medicine to anyone under 18. To make sure codeine and guaifenesin is safe for you, tell your doctor if you have ever had: a cough with mucus; asthma, COPD, or other breathing disorder; blockage in your digestive tract (stomach or intestines); a head injury or brain tumor; low blood pressure; or drug or alcohol addiction. If you use codeine while you are , your baby could become dependent on the drug. This can cause life-threatening withdrawal symptoms in the baby after it is born. Babies born dependent on habit-forming medicine may need medical treatment for several weeks. Tell your doctor if you are or plan to become . Do not breast-feed. Codeine can pass into breast milk and may cause drowsiness, breathing problems, or in a nursing baby. Do not breast-feed. How should I take codeine and guaifenesin? Follow all directions on your prescription label. Codeine can slow or stop your breathing. Never use codeine and guaifenesin in larger amounts, or for longer than prescribed. Cough or cold medicine is usually taken only for a short time until your symptoms clear up. Codeine may be habit-forming, even at regular doses. Never share this medicine with another person, especially someone with a history of drug abuse or addiction. MISUSE OF NARCOTIC MEDICINE CAN CAUSE ADDICTION, OVERDOSE, OR , especially in a child or other person using the medicine without a prescription. Selling or giving away codeine is against the law. Measure liquid medicine with the dosing syringe provided, or with a special dose-measuring spoon or medicine cup. If you do not have a dose-measuring device, ask your pharmacist for one. Call your doctor if your symptoms do not improve after 7 days of treatment, or if you have a fever with a headache or skin rash. Store at room temperature away from moisture and heat. Do not freeze. Keep track of the amount of medicine used from each new bottle. Codeine is a drug of abuse and you should be aware if anyone is using your medicine improperly or without a prescription. What happens if I miss a dose? Since codeine and guaifenesin is used when needed, you may not be on a dosing schedule. If you are on a schedule, use the missed dose as soon as you remember. Skip the missed dose if it is almost time for your next scheduled dose. Do not use extra medicine to make up the missed dose. What happens if I overdose? Seek emergency medical attention or call the Poison Help line at . A codeine overdose can be fatal, especially in a child or other person using the medicine without a prescription. Overdose symptoms may include slow breathing and heart rate, severe drowsiness, muscle weakness, cold and clammy skin, pinpoint pupils, and fainting. What should I avoid while taking codeine and guaifenesin? This medicine may impair your thinking or reactions. Avoid driving or operating machinery until you know how this medicine will affect you. Dizziness or severe drowsiness can cause falls or other accidents. Do not drink alcohol. Dangerous side effects or could occur. Ask a doctor or pharmacist before using any other cough or cold medicine. Many combination medicines contain guaifensin. Taking certain products together can cause you to get too much of this medicine. What are the possible side effects of codeine and guaifenesin? Get emergency medical help if you have signs of an allergic reaction: hives; difficult breathing; swelling of your face, lips, tongue, or throat. Like other narcotic medications, codeine can slow your breathing. may occur if breathing becomes too weak. A person caring for you should seek emergency medical attention if you have slow breathing with long pauses, blue colored lips, or if you are hard to wake up. Stop using this medicine and call your doctor at once if you have: noisy breathing, sighing, shallow breathing; a slow heart rate or weak pulse; severe dizziness or drowsiness; confusion, hallucinations, unusual thoughts or behavior; little or no urinating; severe constipation; or slow heart rate, weak or shallow breathing. Serious side effects may be more likely in older adults and those who are overweight, malnourished, or debilitated. Common side effects may include: constipation; or mild drowsiness. This is not a complete list of side effects and others may occur. Call your doctor for medical advice about side effects. You may report side effects to FDA at 2-587-LTY-2269. What other drugs will affect codeine and guaifenesin? Taking codeine and guaifenesin with other drugs that make you sleepy or slow your breathing can cause dangerous side effects or . Ask your doctor before taking a sleeping pill, narcotic pain medicine, prescription cough medicine, a muscle relaxer, or medicine for anxiety, depression, or seizures. Other drugs may interact with codeine and guaifenesin, including prescription and azbx-smw-mhlmzig medicines, vitamins, and herbal products. Tell your doctor about all your current medicines and any medicine you start or stop using. Where can I get more information? Your pharmacist can provide more information about codeine and guaifenesin. Remember, keep this and all other medicines out of the reach of children, never share your medicines with others, and use this medication only for the indication prescribed. Every effort has been made to ensure that the information provided by [employer]. ('[employer]') is accurate, up-to-date, and complete, but no guarantee is made to that effect. Drug information contained herein may be time sensitive. [employer] information has been compiled for use by healthcare practitioners and consumers in the [place] and therefore [employer] does not warrant that uses outside of the [place] are appropriate, unless specifically indicated otherwise. [employer]'s drug information does not endorse drugs, diagnose patients or recommend therapy. [employer] drug information is an informational resource designed to assist licensed healthcare practitioners in caring for their patients and/or to serve consumers viewing this service as a supplement to, and not a substitute for, the expertise, skill, knowledge and judgment of healthcare practitioners. The absence of a warning for a given drug or drug combination in no way should be construed to indicate that the drug or drug combination is safe, effective or appropriate for any given patient. [employer] does not assume any responsibility for any aspect of healthcare administered with the aid of information [employer] provides. The information contained herein is not intended to cover all possible uses, directions, precautions, warnings, drug interactions, allergic reactions, or adverse effects. If you have questions about the drugs you are taking, check with your doctor, nurse or pharmacist. Copyright 5735-5757 [employer]. Version: 8.02. Revision Date: 06/13/2017. oseltamivir (os el JONES ih veer) Tamiflu What is the most important information I should know about oseltamivir? Some people using oseltamivir have had sudden unusual changes in mood or behavior, most often in children. It is not certain that oseltamivir is the exact cause. Even without using oseltamivir, anyone with influenza can have neurologic or behavioral effects that may lead to confusion or hallucinations. Call your doctor right away if the person using this medicine has any signs of unusual thoughts or behavior. What is oseltamivir? Oseltamivir is an antiviral medication that blocks the actions of influenza virus types A and B in your body. Oseltamivir is used to treat flu symptoms caused by influenza virus in people who have had symptoms for less than 2 days. Oseltamivir may also be given to prevent influenza in people who may be exposed but do not yet have symptoms. Oseltamivir will not treat the common cold. Oseltamivir should not be used in place of getting a yearly flu shot. The Centers for Disease Control recommends an annual flu shot to help protect you each year from new strains of influenza virus. Oseltamivir may also be used for purposes not listed in this medication guide. What should I discuss with my healthcare provider before using oseltamivir? You should not use oseltamivir if you are allergic to it. Do not use oseltamivir to treat flu symptoms in a child younger than 2 weeks old. Children as young as 1 year old may use zanamivir to prevent flu symptoms. Tell your doctor if you have ever had: kidney disease (or if you are on dialysis); heart disease or chronic lung disease; a condition causing swelling or disorder of the brain; a weak immune system (caused by disease or by using certain medicine); hereditary fructose intolerance; or if you have used a nasal flu vaccine (FluMist) within the past 2 weeks. It is not known whether this medicine will harm an unborn baby. However, getting sick with influenza during can cause complications leading to defects, low weight, delivery, or stillbirth. Your doctor will decide whether you should receive oseltamivir if you are . The Centers for Disease Control and Prevention (CDC) recommends that women may receive a yearly flu vaccine to prevent influenza. Oseltamivir is not to be used in place of the yearly flu shot. It may not be safe to breast-feed while using this medicine. Ask your doctor about any risk. How should I take oseltamivir? Follow all directions on your prescription label and read all medication guides or instruction sheets. Use the medicine exactly as directed. Start taking oseltamivir as soon as possible after flu symptoms appear, such as fever, chills, muscle aches, sore throat, and runny or stuffy nose. Take the oseltamivir capsule with a full glass of water. Shake the oral suspension (liquid) before you measure a dose. Use the dosing syringe provided, or use a medicine dose-measuring device (not a kitchen spoon). Oseltamivir may be taken with food if it upsets your stomach. To treat flu symptoms: Take oseltamivir every 12 hours for 5 days. To prevent flu symptoms: Take oseltamivir every 24 hours for 10 days or as prescribed. Follow your doctor's instructions. Read and carefully follow any Instructions for Use provided with your medicine. Ask your doctor or pharmacist if you do not understand these instructions. Use this medicine for the full prescribed length of time, even if your symptoms quickly improve. Tell your doctor if your symptoms do not improve, or if they get worse. Store oseltamivir capsules at room temperature away from moisture and heat. Store oseltamivir liquid in the refrigerator but do not freeze. Throw away any unused liquid after 17 days. The liquid may also be stored at cool room temperature for up to 10 days What happens if I miss a dose? Use the medicine as soon as you can, but skip the missed dose if your next dose is due in less than 2 hours. Do not use two doses at one time. What happens if I overdose? Seek emergency medical attention or call the Poison Help line at . What should I avoid while taking oseltamivir? Do not use a nasal flu vaccine (FluMist) within 48 hours after taking oseltamivir. Oseltamivir may interfere with the drug action of FluMist, making the vaccine less effective. Follow your doctor's instructions. What are the possible side effects of oseltamivir? Get emergency medical help if you have signs of an allergic reaction (hives, difficult breathing, swelling in your face or throat) or a severe skin reaction (fever, sore throat, burning eyes, skin pain, red or purple skin rash with blistering and peeling). Some people using oseltamivir (especially children) have had sudden unusual changes in mood or behavior. It is not certain that oseltamivir is the exact cause of these symptoms. Even without using oseltamivir, anyone with influenza can have neurologic or behavioral symptoms. Call your doctor right away if the person using this medicine has: sudden confusion; tremors or shaking; unusual behavior; or hallucinations (hearing or seeing things that are not there). Common side effects may include: nausea, vomiting; headache; or pain. This is not a complete list of side effects and others may occur. Call your doctor for medical advice about side effects. You may report side effects to FDA at 0-910-MVJ-2264. What other drugs will affect oseltamivir? Other drugs may affect oseltamivir, including prescription and pksq-eie-zmhdzkc medicines, vitamins, and herbal products. Tell your doctor about all your current medicines and any medicine you start or stop using. Where can I get more information? Your pharmacist can provide more information about oseltamivir. Remember, keep this and all other medicines out of the reach of children, never share your medicines with others, and use this medication only for the indication prescribed. Every effort has been made to ensure that the information provided by [employer]. ('[employer]') is accurate, up-to-date, and complete, but no guarantee is made to that effect. Drug information contained herein may be time sensitive. [employer] information has been compiled for use by healthcare practitioners and consumers in the [place] and therefore [employer] does not warrant that uses outside of the [place] are appropriate, unless specifically indicated otherwise. [employer] drug information does not endorse drugs, diagnose patients or recommend therapy. [employer] drug information is an informational resource designed to assist licensed healthcare practitioners in caring for their patients and/or to serve consumers viewing this service as a supplement to, and not a substitute for, the expertise, skill, knowledge and judgment of healthcare practitioners. The absence of a warning for a given drug or drug combination in no way should be construed to indicate that the drug or drug combination is safe, effective or appropriate for any given patient. [employer] does not assume any responsibility for any aspect of healthcare administered with the aid of information [employer] provides. The information contained herein is not intended to cover all possible uses, directions, precautions, warnings, drug interactions, allergic reactions, or adverse effects. If you have questions about the drugs you are taking, check with your doctor, nurse or pharmacist. Copyright 2261-9181 [employer]. Version: 12.. Revision Date: 02/21/2018. Education Materials Influenza (Adult) Influenza is also called the flu. It is a viral illness that affects the air passages of your lungs. It is different from the common cold. The flu can easily be passed from one to person to another. It may be spread through the air by coughing and sneezing. Or it can be spread by touching the sick person and then touching your own eyes, nose, or mouth. The flu starts 1 to 3 days after you are exposed to the flu virus. It may last for 1 to 2 weeks but many people feel tired or fatigued for many weeks afterward. You usually don t need to take antibiotics unless you have a complication. This might be an ear or sinus infection or pneumonia. Symptoms of the flu may be mild or severe. They can include extreme tiredness (wanting to stay in bed all day), chills, fevers, muscle aches, soreness with eye movement, headache, and a dry, hacking cough. Home care Follow these guidelines when caring for yourself at home: Avoid being around cigarette smoke, whether yours or other people s. Acetaminophen or ibuprofen will help ease your fever, muscle aches, and headache. Don t give aspirin to anyone younger than 18 who has the flu. Aspirin can harm the liver. Nausea and loss of appetite are common with the flu. Eat light meals. Drink 6 to 8 glasses of liquids every day. Good choices are water, sport drinks, soft drinks without caffeine, juices, tea, and soup. Extra fluids will also help loosen secretions in your nose and lungs. Wmwl-oda-yhhobff cold medicines will not make the flu go away faster. But the medicines may help with coughing, sore throat, and congestion in your nose and sinuses. Don t use a decongestant if you have high blood pressure. Stay home until your fever has been gone for at least 24 hours without using medicine to reduce fever. Follow-up care Follow up with your healthcare provider, or as advised, if you are not getting better over the next week. If you are age 65 or older, talk with your provider about getting a pneumococcal vaccine every 5 years. You should also get this vaccine if you have chronic asthma or COPD. All adults should get a flu vaccine every fall. Ask your provider about this. When to seek medical advice Call your healthcare provider right away if any of these occur: Cough with lots of colored mucus (sputum) or blood in your mucus Chest pain, shortness of breath, wheezing, or trouble breathing Severe headache, or face, neck, or ear pain New rash with fever Fever of 100.4 F (38 C) or higher, or as directed by your healthcare provider Confusion, behavior change, or seizure Severe weakness or dizziness You get a new fever or cough after getting better for a few days [id number] [employer]. [address] [place] [address], [place] [address]. All rights reserved. This information is not intended as a substitute for professional medical care. Always follow your healthcare professional's instructions. Additional Information VACCINATE! IT SAVES LIVES! Members of the community who have not yet received the COVID-19 vaccine and would like to receive it can visit one of [facility] vaccine clinics. There are many vaccine clinic locations within the [facility]. For locations and available times, please visit [email or web address]. It is important to note that some COVID mobile vaccine clinics are held outdoors and may be canceled in rainy or stormy conditions. To learn more about pediatric vaccinations (ages 5-11), we invite you to visit the [facility] webpage. [email or web address]/[email or web address] -Questions.html To learn more about the COVID-19 vaccine, we invite you to visit the [place] website for a list of frequently asked questions. [email or web address] [facility] [employer] Patient Portal Access Instructions: Stay connected with your healthcare team and access your personal medical information anytime with the [facility] Patient Portal. If you would like a full copy of your medical records please contact the [facility] Medical Records Department Tuesday through Tuesday between 8a.m. and 4:30p.m. Please follow the directions below to access the portal: 1.Access the email account you provided upon registration to the hospital.2.Look for an invitation email from [facility].3.Open the email and access the invitation link: Accept Invitation to [facility]4.Fill in the required layne to create your account. Sign into www.Particle with your username and password that you created in the above steps to stay up to date. You can then view a summary of results, a summary of your visits, and the ability to download your summaries to your computer or send the information securely to a physician. Remember that your healthcare information is confidential, so carefully consider who you will allow to register on the [facility] Patient Portal for access to your information. You can also access the [facility] Patient Portal on the [employer] david. Simply click on Health Records under Health Data and then click on the [employer] logo. HOW TO SAFELY DISPOSE OF PRESCRIPTION MEDICATIONS Please use one of the following methods to safely dispose of your unused medications. 1.Use a drug disposal kit: the drug disposal pouch allows you to safely discard your old and unused drugs. Ask your nurse to give you one when you are discharged.2.Visit a local take-back location: Many local pharmacies and police departments have programs that collect old and unwanted prescription drugs. Call your local pharmacy or go to http://[employer].E-Sign/1A5Vs0h to find one close to you.3.Make use of household items: Use cat litter or old coffee grounds to dispose medications if other options are not available. Mix your drugs with these household products, seal them in an airtight container and throw it into the garbage. Call [facility]: [phone] to be sure your drugs can be disposed of in this way. Some medicines may require a different approach.4.Never flush your medications down the toilet. IF YOU HAVE BEEN PRESCRIBED AN OPIOIDS FOR PAIN If you have been prescribed an opioid (such as hydrocodone, oxycodone or morphine), it is critical to understand the possible side effects and risks of opioid pain medications. Even when taken as directed, opioids can have several side effects including: Tolerance, meaning you might need to take more of a medication for the same pain relief. Nausea, vomiting and/or constipation. Sleepiness, dizziness, dry mouth, confusion, depression or itching. Physical dependence, meaning you have withdrawal symptoms when a medication is stopped ? this can develop within a few days. KNOW YOUR RESPONSIBILITIES It is important to know exactly how much and how often to take the opioid pain medications you are prescribed. Never take opioids in higher amounts or more often than prescribed. Do not combine opioids with alcohol or other drugs that cause drowsiness, such as benzodiazepines, also known as benzos, including diazepam and alprazolam, muscle relaxants or sleep aids. Never sell or share prescription opioids. This is illegal. Store opioids in a secure place and out of reach of others (including children, family, friends and visitors). The last page(s) of this document has been signed and retained as a CHART COPY Signatures Patient Education Materials Influenza (Adult) Medication Leaflets codeine and guaifenesin, oseltamivir My discharge plan and instructions have been reviewed and explained to me and I,CALISTA DEAL understand my current condition and have read and understand these discharge instructions. I have received a written copy of the plan/instructions. If I have questions, I am aware that I should contact my doctor. 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 HISTORY: ORDERING SYSTEM PROVIDED HISTORY: Reason for Exam: SOB/Cough/Fever FINDINGS: The cardiomediastinal silhouette is nonenlarged. There is mild central vascular congestion. Patchy interstitial opacities are seen bilaterally. There is no pleural effusion or pneumothorax. No free air seen beneath the level of the diaphragm. The bony thorax appears acutely intact. IMPRESSION: Mild vascular congestion with patchy interstitial opacities. CHF as well as a developing infectious/inflammatory process are considered. Interpreted by: Francisco Bowen MD Preliminary Report By: Francisco Bowen MD Electronically signed By Francisco Bowen MD Dictated Date: 05/08/2022 12:15:56 PM Prelim Date: 05/08/2022 12:17:12 PM Sign Date: 05/08/2022 12:17:12 PM Ordering Provider: ROXANNA JENKINS [facility] Clinical Note 05-08-2022 Note Date & Type Note Facility 05-08-2022 Note ORIGINAL EXAMINATION: TWO XRAY VIEWS OF THE CHEST 05/08/2022 11:49 am COMPARISON: None. HISTORY: ORDERING SYSTEM PROVIDED HISTORY: Reason for Exam: SOB/Cough/Fever FINDINGS: The cardiomediastinal silhouette is nonenlarged. There is mild central vascular congestion. Patchy interstitial opacities are seen bilaterally. There is no pleural effusion or pneumothorax. No free air seen beneath the level of the diaphragm. The bony thorax appears acutely intact. IMPRESSION: Mild vascular congestion with patchy interstitial opacities. CHF as well as a developing infectious/inflammatory process are considered. Interpreted by: Francisco Bowen MD Preliminary Report By: Francisco Bowen MD Electronically signed By Francisco Bowen MD Dictated Date: 05/08/2022 12:15:56 PM Prelim Date: 05/08/2022 12:17:12 PM Sign Date: 05/08/2022 12:17:12 PM Ordering Provider: [facility] SARS-CoV-2 (COVID-19) RNA KHOA+probe Ql (Nph) 05-08-2022 Note Date & Type Note Facility 05-08-2022 SARS-CoV-2 (COVID -19) RNA KHOA+probe Ql (Nph) Negative *NA* (05/08/22 11:24 AM) [facility] Hospital Discharge instructions 05-13-2021 Note Date & Type Note Facility 05-13-2021 Hospital Discharg e instructions Patient Education 05/13/2021 00:30:11 Osteoarthritis Osteoarthritis Osteoarthritis (also called degenerative joint disease) happens when the cartilage in a joint becomes damaged and worn. This may be due to age, wear and tear, overuse of the joint, or other problems. Osteoarthritis can affect any joint. But it is most common in hands, knees, spine, hips, and feet. Symptoms include joint stiffness, pain, and swelling. Home care When a joint is more sore than usual, rest it for a day or two. Heat can help relieve stiffness. Take a hot bath or apply a heating pad for up to 30 minutes at a time. If symptoms are worse in the morning, using heat just after awakening can help relax the muscle and soothe the joints. Ice helps relieve pain and swelling. It is often used after activity. Use a cold pack wrapped in a thin cloth on the joint for 10 to 15 minutes at a time. Alternating hot and cold can also help relieve pain. Try this for 20 minutes at a time, several times per day. Exercise helps prevent the muscles and ligaments around the joint from becoming weak. It also helps maintain function in the joint. Be as active as you can. Talk to your healthcare provider about what activity program is best for you. Excess weight puts a lot of extra strain on weight-bearing joints of the lower back, hips, knees, feet and ankles. If you are overweight, talk to your healthcare provider about a safe and effective weight loss program. Use anti-inflammatory medicines as prescribed for pain. This includes acetaminophen or NSAIDs such as ibuprofen or naproxen. If needed, topical or injected medicines may be recommended. Talk to your healthcare provider if these options are not enough to manage your pain. Talk with your healthcare provider about devices that might help improve your function and reduce pain. Follow-up care Follow up with your healthcare provider as advised by our staff. When to seek medical advice Call your healthcare provider right away if any of these occur: Redness or swelling of a painful joint Discharge or pus from a painful joint Fever of 100.4 F (38 C) or higher, or as directed by your healthcare provider Worsening joint pain Decreased ability to move the joint or bear weight on the joint [id number] [employer]. [address] [place] [address]. All rights reserved. This information is not intended as a substitute for professional medical care. Always follow your healthcare professional's instructions. Follow Up Care 05/12/2021 19:33:40 With:ALISON BRUNSON MD, Orthopedic Address: [address] [place] [address] [facility] [place], [place] [id number]- When:2-4 days With:Go to emergency room if symptoms worsen Address:Unknown When:2-4 days With:ELBA JIMENEZ MD Address: [address] [place] [id number]- When:2-4 days [facility] Hospital Discharge instructions 03-10-2021 Note Date & Type Note Facility 03-10-2021 Hospital Discharg e instructions Patient Education 03/10/2021 15:41:24 R.I.C.E. RICE RICE stands for rest, ice, compression, and elevation. Doing these things helps limit pain and swelling after an injury. RICE also helps injuries heal faster. Use RICE for sprains, strains, and severe bruises or bumps. Follow the tips on this handout and begin RICE as soon as possible after an injury. Rest Pain is your body s way of telling you to rest an injured area. Whether you have hurt an elbow, hand, foot, or knee, limiting its use will prevent further injury and help you heal. Ice Applying ice right after an injury helps prevent swelling and reduce pain. Don t place ice directly on your skin. Wrap a cold pack or bag of ice in a thin cloth. Place it over the injured area. Ice for 10 minutes every 3 hours. Don t ice for more than 20 minutes at a time. Compression Putting pressure (compression) on an injury helps prevent swelling and provides support. Wrap the injured area firmly with an elastic bandage. If your hand or foot tingles, becomes discolored, or feels cold to the touch, the bandage may be too tight. Rewrap it more loosely. If your bandage becomes too loose, rewrap it. Do not wear an elastic bandage overnight. Elevation Keeping an injury elevated helps reduce swelling, pain, and throbbing. Elevation is most effective when the injury is kept elevated higher than the heart. Call your healthcare provider if you notice any of the following: Fingers or toes feel numb, are cold to the touch, or change color. Skin looks shiny or tight. Pain, swelling, or bruising worsens and is not improved with elevation. 2094-9503 [employer]. [address] [place] [address]. All rights reserved. This information is not intended as a substitute for professional medical care. Always follow your healthcare professional's instructions. Follow Up Care 03/10/2021 12:12:53 With:ELBA JIMENEZ MD Address: [address] [place] [id number]- When:2-4 days [facility] Evaluation + Plan note Note Date & Type Note Facility Evaluation + Plan note No data available for this section [facility] Summary Purpose Family History No Family History Records FoundNo Family History Records Found Advance Directives No Advanced Directives Records FoundNo Advanced Directives Records Found Additional Source Comments (unrecognized sect ion and content) No Status Records FoundNo Status Records Found INFORMATION SOURCE (unrecogn ized section and content) DATE CREATED AUTHOR AUTHOR'S ORGANIZ ATION 05/21/2022 [facility] ([place]) Care Team (unrecognized sect ion and content) Care Team Personnel Name: ELBA JIMENEZ MD Member Role: Primary Care Physician Address: Address: [address] [place] [id number]- Name: ROXANNA JENKINS MD Position: ED Physician Member Role: ED Physician Address: Address: [facility] [address] [place], [place] [address] Care Team Related Persons Name: JAZMYN DEAL Name: JAZMYN DEAL Name: JAZMYN DEAL FOR RECORDS PERTAINING TO PATIENTS WHO ARE OR HAVE BEEN ENROLLED IN A CHEMICAL DEPENDENCY/SUBSTANCEABUSE PROGRAM, SOME INFORMATION MAY BE OMITTED. This clinical summary was aggregated from multiple sources. Caution should be exercised in using it in the provision of clinical care. This summary normalizes information from multiple sources, and as a consequence, information in this document may materially change the coding, format and clinical context of patient data. In addition, data may be omitted in some cases. CLINICAL DECISIONS SHOULD BE BASED ON THE PRIMARY CLINICAL RECORDS. [facility]. provides no warranty or guarantee of the accuracy or completeness of information in this document.
== END | disposition home or self-care (01) ==
LOC: MTRAD 12:33
PROVIDERS: PCP Family Medicine; Referring Provider Family Medicine; Visit Provider Family Medicine
DX: S59.909A Unspecified injury of unspecified elbow, initial encounter (principal); X58.XXXA Exposure to other specified factors, initial encounter
CPT/HCPCS: 73080

== ENCOUNTER → 2023-09-14 | Outpatient (CLI) | payer MEDICARE, BC, OTHER, SELFPAY ==
[2023-09-14 13:07] LABS: ALB/GLOB Ratio 0.9 RATIO (0.9-2.4); AST(SGOT) 20 U/L (15-37); Alanine Aminotransfer ALT/SGPT 24 U/L (16-61); Albumin, Serum 3.3 g/dL (3.2-5.0); Alkaline Phosphatase 79 U/L (45-117); Anion Gap 6 (5-15); BUN 13 mg/dL (7-18); BUN/Creat Ratio 13.1 RATIO (10-20); Calcium,Total 9.6 mg/dL (8.5-10.1); Chloride 101 mmol/L (98-107); Cholesterol 137 mg/dL (200); Creatinine, Serum 0.99 mg/dL (0.70-1.30); EST Glomerular Filtration Rate 78 mL/min (>60); Est Glom Filt Rate - Afr Amer 95 mL/min (>60); Globulin 3.7 g/dL (2.2-4.2); Glucose 212 mg/dL (74-106); High Density Lipoprotein 47 mg/dL; Potassium 4.7 mmol/L (3.5-5.1); Sodium Level 134 mmol/L (136-145); Triglycerides 75 mg/dL; Very Low Density Lipoprotein 15 mg/dL (5-40)
[2023-09-14 13:10] LABS: Hemoglobin A1c 7.7 % (3.8-5.6)
== END | disposition home or self-care (01) ==
PROVIDERS: PCP Family Medicine; Referring Provider Internal Medicine Endocrinology, Diabetes & Metabolism; Visit Provider Internal Medicine Endocrinology, Diabetes & Metabolism
DX: E11.65 Type 2 diabetes mellitus with hyperglycemia (principal); E78.2 Mixed hyperlipidemia
CPT/HCPCS: 36415; 80053; 80061; 83036

== ENCOUNTER → 2023-12-12 | Outpatient (CLI) | payer MEDICARE, BC, OTHER, SELFPAY ==
[2023-12-12 12:31] LABS: Vitamin D,25 Hydroxy 45.3 ng/mL
[2023-12-12 12:50] LABS: Protein, Urine (Random) 13.1 mg/dL (<11.9); Protein:Creat Ratio 156 mg/g CRE (0-200)
[2023-12-12 12:57] LABS: ALB/GLOB Ratio 0.9 RATIO (0.9-2.4); AST(SGOT) 17 U/L (15-37); Alanine Aminotransfer ALT/SGPT 23 U/L (16-61); Albumin, Serum 3.2 g/dL (3.2-5.0); Alkaline Phosphatase 85 U/L (45-117); Anion Gap 6 (5-15); BUN 19 mg/dL (7-18); BUN/Creat Ratio 18.8 RATIO (10-20); Calcium,Total 9.8 mg/dL (8.5-10.1); Chloride 99 mmol/L (98-107); Cholesterol 119 mg/dL (200); Creatinine, Serum 1.01 mg/dL (0.70-1.30); EST Glomerular Filtration Rate 77 mL/min (>60); Est Glom Filt Rate - Afr Amer 93 mL/min (>60); Globulin 3.6 g/dL (2.2-4.2); Glucose 264 mg/dL (74-106); High Density Lipoprotein 41 mg/dL; Protein, Total 6.8 g/dL (6.4-8.2); Sodium Level 131 mmol/L (136-145); Triglycerides 94 mg/dL; Very Low Density Lipoprotein 19 mg/dL (5-40)
[2023-12-12 13:28] LABS: AST(SGOT) 19 U/L (15-37); Alanine Aminotransfer ALT/SGPT 25 U/L (16-61); Thyroid Stim Hormone (TSH) 1.12 uIU/mL (0.358-3.74)
[2023-12-12 14:29] LABS: Microalbumin,Random Urine 19.2 mg/L (NO RANGE EST.); Microalbumin:Creatinine Ratio 22.6 mg/g CRE (<30 mg/g CRE)
[2023-12-12 21:06] LABS: Hemoglobin A1c 7.7 % (3.8-5.6)
== END | disposition home or self-care (01) ==
LOC: MTLAB 09:26
PROVIDERS: PCP Family Medicine; Referring Provider Internal Medicine Endocrinology, Diabetes & Metabolism; Visit Provider Internal Medicine Endocrinology, Diabetes & Metabolism
DX: E11.65 Type 2 diabetes mellitus with hyperglycemia (principal); E78.2 Mixed hyperlipidemia; E55.9 Vitamin D deficiency, unspecified
CPT/HCPCS: 36415; 80053; 80061; 82043; 82306; 82570; 83036; 84156; 84443; 84450; 84460

== ENCOUNTER → 2024-03-13 | Outpatient (CLI) | payer MEDICARE, BC, OTHER, SELFPAY ==
[2024-03-13 13:07] LABS: ALB/GLOB Ratio 0.8 RATIO (0.9-2.4); AST(SGOT) 23 U/L (15-37); Alanine Aminotransfer ALT/SGPT 29 U/L (16-61); Albumin, Serum 3.1 g/dL (3.2-5.0); Alkaline Phosphatase 93 U/L (45-117); Anion Gap 6 (5-15); BUN 11 mg/dL (7-18); BUN/Creat Ratio 13.1 RATIO (10-20); Calcium,Total 9.4 mg/dL (8.5-10.1); Chloride 103 mmol/L (98-107); Cholesterol 156 mg/dL (200); Creatinine, Serum 0.84 mg/dL (0.70-1.30); EST Glomerular Filtration Rate 95 mL/min (>60); Est Glom Filt Rate - Afr Amer 115 mL/min (>60); Globulin 3.8 g/dL (2.2-4.2); Glucose 177 mg/dL (74-106); High Density Lipoprotein 51 mg/dL; Potassium 4.5 mmol/L (3.5-5.1); Protein, Total 6.9 g/dL (6.4-8.2); Sodium Level 137 mmol/L (136-145); Triglycerides 93 mg/dL; Very Low Density Lipoprotein 19 mg/dL (5-40)
[2024-03-13 15:24] LABS: Hemoglobin A1c 8.2 % (3.8-5.6)
== END | disposition home or self-care (01) ==
LOC: MTLAB 09:57
PROVIDERS: PCP Family Medicine; Referring Provider Internal Medicine Endocrinology, Diabetes & Metabolism; Visit Provider Internal Medicine Endocrinology, Diabetes & Metabolism
DX: E11.65 Type 2 diabetes mellitus with hyperglycemia (principal); E78.2 Mixed hyperlipidemia; E55.9 Vitamin D deficiency, unspecified
CPT/HCPCS: 36415; 80053; 80061; 82306; 83036

== ENCOUNTER → 2024-04-13 | Outpatient (CLI) | payer MEDICARE, BC, OTHER, SELFPAY ==
[2024-04-13 15:51] LABS: PSA,Total - Annual Screen 0.32 ng/mL (0.00-4.00)
== END | disposition home or self-care (01) ==
LOC: MTLAB 11:42
PROVIDERS: PCP Family Medicine
DX: Z12.5 Encounter for screening for malignant neoplasm of prostate (principal)
CPT/HCPCS: 36415; 84153; G0103

== ENCOUNTER → 2024-06-22 | Outpatient (CLI) | payer MEDICARE, BC, OTHER, SELFPAY ==
[2024-06-22 11:06] LABS: ALB/GLOB Ratio 0.9 RATIO (0.9-2.4); AST(SGOT) 22 U/L (15-37); Alanine Aminotransfer ALT/SGPT 30 U/L (16-61); Albumin, Serum 3.3 g/dL (3.2-5.0); Alkaline Phosphatase 85 U/L (45-117); Anion Gap 6 (5-15); BUN 13 mg/dL (7-18); BUN/Creat Ratio 14.8 RATIO (10-20); Calcium,Total 9.5 mg/dL (8.5-10.1); Chloride 102 mmol/L (98-107); Cholesterol 136 mg/dL (200); Creatinine, Serum 0.88 mg/dL (0.70-1.30); EST Glomerular Filtration Rate 90 mL/min (>60); Est Glom Filt Rate - Afr Amer 109 mL/min (>60); Globulin 3.7 g/dL (2.2-4.2); Glucose 122 mg/dL (74-106); High Density Lipoprotein 48 mg/dL; Potassium 4.8 mmol/L (3.5-5.1); Sodium Level 136 mmol/L (136-145); Triglycerides 69 mg/dL; Very Low Density Lipoprotein 14 mg/dL (5-40)
[2024-06-22 12:50] LABS: Hemoglobin A1c 7.6 % (3.8-5.6)
== END | disposition home or self-care (01) ==
LOC: MTLAB 09:08
PROVIDERS: PCP Family Medicine; Referring Provider Internal Medicine Endocrinology, Diabetes & Metabolism; Visit Provider Internal Medicine Endocrinology, Diabetes & Metabolism
DX: E11.65 Type 2 diabetes mellitus with hyperglycemia (principal); E78.2 Mixed hyperlipidemia
CPT/HCPCS: 36415; 80053; 80061; 83036

== ENCOUNTER → 2024-09-18 | Outpatient (CLI) | payer MEDICARE, BC, OTHER, SELFPAY ==
[2024-09-18 18:35] LABS: Hemoglobin A1c 8.6 % (<=5.6)
[2024-09-18 18:55] LABS: ALB/GLOB Ratio 1.2 RATIO (0.9-2.4); AST(SGOT) 23 U/L (<=37); Alanine Aminotransfer ALT/SGPT 22 U/L (<=46); Albumin, Serum 3.6 g/dL (3.4-4.8); Alkaline Phosphatase 86 U/L (40-129); Anion Gap 10 (5-15); BUN 16 mg/dL (4-19); BUN/Creat Ratio 17.2 RATIO (10-20); Calcium,Total 9.6 mg/dL (7.6-11.0); Carbon Dioxide 24.4 mmol/L (21.0-32.0); Chloride 99 mmol/L (98-108); Creatinine, Serum 0.95 mg/dL (0.70-1.20); EST Glomerular Filtration Rate 83 (>60); Globulin 3.1 g/dL (2.2-4.2); Glucose 258 mg/dL (70-99); Potassium 4.4 mmol/L (3.3-5.1); Protein, Total 6.8 g/dL (5.9-8.4); Sodium Level 134 mmol/L (133-145); Total Bilirubin 0.25 mg/dL (0.00-1.30); Vitamin D,25 Hydroxy 36.7 ng/mL (30-100)
[2024-09-18 20:03] LABS: Microalbumin,Random Urine 34.8 mg/L (NO RANGE EST.); Microalbumin:Creatinine Ratio 169.8 mg/g CRE
== END | disposition home or self-care (01) ==
LOC: MTLAB 13:45
PROVIDERS: PCP Family Medicine; Referring Provider Internal Medicine Endocrinology, Diabetes & Metabolism; Visit Provider Internal Medicine Endocrinology, Diabetes & Metabolism
DX: E11.65 Type 2 diabetes mellitus with hyperglycemia (principal); E55.9 Vitamin D deficiency, unspecified
CPT/HCPCS: 36415; 80053; 82043; 82306; 82570; 83036

== ENCOUNTER → 2024-12-20 | Outpatient (CLI) | payer MEDICARE, BC, OTHER, SELFPAY ==
[2024-12-20 10:42] LABS: Creatinine, Urine (random) 190.00 mg/dL (39.00-259.00); Microalbumin,Random Urine 32.6 mg/L (<20 mg/L)
[2024-12-20 11:40] LABS: AST(SGOT) 27 U/L (<=37); Alanine Aminotransfer ALT/SGPT 22 U/L (<=46); Albumin, Serum 3.8 g/dL (3.4-4.8); Alkaline Phosphatase 77 U/L (40-129); Anion Gap 10 (5-15); BUN 14 mg/dL (4-19); BUN/Creat Ratio 16.7 RATIO (10-20); Calcium,Total 9.8 mg/dL (7.6-11.0); Carbon Dioxide 26.6 mmol/L (21.0-32.0); Chloride 100 mmol/L (98-108); Globulin 3.0 g/dL (2.2-4.2); Glucose 188 mg/dL (70-99); Potassium 4.5 mmol/L (3.3-5.1); Vitamin D,25 Hydroxy 41.7 ng/mL (30-100)
== END | disposition home or self-care (01) ==
LOC: MTLAB 07:47
PROVIDERS: PCP Family Medicine; Referring Provider Internal Medicine Endocrinology, Diabetes & Metabolism; Visit Provider Internal Medicine Endocrinology, Diabetes & Metabolism
DX: E11.65 Type 2 diabetes mellitus with hyperglycemia (principal); E55.9 Vitamin D deficiency, unspecified
CPT/HCPCS: 36415; 80053; 82043; 82306; 82570; 83036

== ENCOUNTER → 2025-03-20 | Outpatient (CLI) | payer MEDICARE, BC, OTHER, SELFPAY ==
--- OUTSIDE RECORDS SUMMARY | 2025-03-20 09:58 | XMS RPT_ITS | CCD ---
Author Organization [facility] Care Team Providers Care Chart Computer Name Role Phone DR ROMY SLADE MD Primary Care Physician [phone] Romy Slade Primary Care Provider [phone] Vargas Campbell Other Provider Dr. Casey Le Attending Provider DR ROMY SLADE MD Primary Care Physician [phone] ROXANNA JENKINS Attending Unavailable YANY MONTILLA, DR. ARREOLA Primary Care Unavailable JULIEN ARNDT Attending Unavailable YANY MONTILLA, DR. ARREOLA Primary Care Unavailable JULIEN ARNDT Referring Unavailable Dr. Vargas Campbell Referring Provider Dr. Romy Slade Primary Care Provider Dr. Romy Slade Referring Provider [phone] Hung Jameson Attending Provider Dr. Romy Slade Primary Care Provider Dr. Hung Jameson Referring Provider Dr. Hung Jameson Other Provider Dr. Angel Ramos Attending Provider Dr. Romy Slade Referring Provider [phone] Hung Jameson Attending Provider Dr. Romy Slade Primary Care Provider [phone] Hung Jameson Attending Provider Dr. Hung Jameson Referring Provider Dr. Romy Slade Primary Care Provider Dr. Romy Slade Referring Provider [phone] Hung Jameson Attending Provider Yany SINGH, Dr. Romy Deshpande Primary Care Provider [phone] Hansel SINGH, Dr. Carreon Attending Provider Hansel SINGH, Dr. Carreon Referring Provider Yany SINGH, Dr. Romy Deshpande Referring Provider Gisell SINGH, Dr. Persaud Attending Provider [phone] Mate[facility], [facility] Provider Gisell SINGH, Dr. Persaud Referring Provider Mateus SINGH, Chalon Referring Provider Yany SINGH, Dr. Romy Deshpande Primary Care Provider [phone] Hansel SINGH, Dr. Carreon Attending Provider Hansel SINGH, Dr. Carreon Referring Provider [phone] Leela Hamm Attending Unavailable Runer, Leela Referring Unavailable Mateus, Chalon Primary Care Unavailable Baddour, Hung Attending Unavailable Mateus, Chalon Primary Care Unavailable Mateus, Chalon Referring Unavailable Baddour, Hung Attending Unavailable Mateus, Chalon Primary Care Unavailable Mateus, Chalon Referring Unavailable Jolliff, Romy S Primary Care Unavailable Baddour, Hung Attending Unavailable Baddour, Hung Referring Unavailable Baddour, Hung Attending Unavailable Jolliff, Romy S Primary Care Unavailable Baddour, Hung Referring Unavailable Baddour, Hung Attending Unavailable Baddour, Hung Referring Unavailable Mateus, Chalon Primary Care Unavailable Jolliff, Romy S Primary Care Unavailable McMorrow CARDIOPULMONARY SPECIALIST, Edvin Attending Unavailable McMorrow CARDIOPULMONARY SPECIALIST, Edvin Referring Unavailable Jolliff, Romy S Primary Care Unavailable Runer, Leela Attending Unavailable Runer, Leela Referring Unavailable Jolliff, Romy S Primary Care Unavailable Runer, Leela Attending Unavailable Runer, Leela Referring Unavailable Medications Current Medications Medication Drug Class(es) Dates Sig (Normalized) Sig (Original) Albuterol (Eqv-ProAir HFA) 90 mcg/inh inhalation aerosol (1 source) Start: 05-08-2022 Albuterol (Eqv-ProAir HFA) 90 mcg/inh inhalation aerosol 0 Refill(s) Start Date: 05/08/22 Status: Ordered amLODIPine 10 mg oral tablet (12 sources) Dihydropyridine Calcium Channel Dennis Start: 10-05-2022 take 1 tablet by mouth once daily Amlodipine 10 mg tablet Active 10 mg PO DAILY October 05, 2022 12:00am Start: 05-08-2022 amLODIPine 10 mg oral tablet 0 Refill(s) Start Date: 05/08/22 Status: Ordered aspirin 81 mg chewable tablet (11 sources) Platelet Aggregation Inhibitor, Nonsteroidal Anti-inflammatory Drug Start: 10-05-2022 take 1 tablet by mouth once daily Aspirin 81 mg tablet,chewable Active 81 mg PO DAILY October 05, 2022 12:00am atorvastatin 10 mg oral tablet (11 sources) HMG-CoA Reductase Inhibitor Start: 10-05-2022 take 1 tablet by mouth once daily Atorvastatin 10 mg tablet Active 10 mg PO DAILY October 05, 2022 12:00am Bilateral wrist splints for carpal tunnel syndrome (11 sources) Start: 10-05-2022 Bilateral wrist splints for carpal tunnel syndrome Active 0 .Route .MEDSUPPLY 2 0 October 05, 2022 12:00am Wear at night. Start: 10-05-2022 Bilateral wris t splints for carpal tunnel syndrome Active 0 .Route .MEDSUPPLY 2 October 04, 2022 11:00pm Wear at night. Start: 10-05-2022 Bilateral wris t splints for carpal tunnel syndrome Active 0 .Route .MEDSUPPLY 2 October 05, 2022 12:00am Wear at night. brimonidine tartrate 2 mg/ml / timolol 5 [...] Date: 05/08/22 Stop Date: 05/09/22 Status: Ordered DULoxetine 60 mg delayed release oral capsule (20 sources) Serotonin and Norepinephrine Reuptake Inhibitor Start: 11-20-2024 take 1 capsule by mouth once daily in the morning Duloxetine 30 mg capsule,delayed release(DR/EC) Active 30 mg PO EVERY MORNING 90 2 November 20, 2024 12:00am Start: 10-05-2022 End: 03-18-2023 take 1 capsule by mouth at bedtime Duloxetine 30 mg capsule,delayed release(DR/EC) Discontinued 30 mg PO AT BEDTIME 7 0 October 05, 2022 12:00am March 18, 2023 3:24pm Start: 10-05-2022 End: 11-20-2024 take 1 capsule by mouth at bedtime Duloxetine 60 mg capsule,delayed release(DR/EC) Discontinued 60 mg PO AT BEDTIME 30 3 December 15, 2023 5:10pm March 29, 2024 5:08pm ergocalciferol 1.25 mg oral capsule (20 sources) Provitamin D2 Compound Start: 03-17-2023 Ergocalciferol (Diana min D2) (Vitamin D2) 1,250 mcg (50,000 unit) capsule Active 1250 ug PO EVERY MONTH March 17, 2023 4:05pm Start: 10-05-2022 End: 03-17-2023 Ergocalciferol (Vitamin D2) (Vitamin D2) 1,250 mcg (50,000 unit) capsule Discontinued 1250 ug PO EVERY WEEK October 05, 2022 12:00am March 17, 2023 4:05pm Start: 05-08-2022 ergocalciferol 50,000 intl units (1.25 mg) oral capsule 0 Refill(s) Start Date: 05/08/22 Status: Ordered FREESTYLE MARK 2 SENSOR (1 source) Start: 05-08-2022 FREESTYLE LIBR E 2 SENSOR FREESTYLE MARK 2 SENSOR, 0 Refill(s), 106.9 Start Date: 05/08/22 Status: Ordered metFORMIN hydrochloride 500 mg oral tablet (11 sources) Biguanide Start: 10-05-2022 take 2 tablets by mouth once daily in the evening Metformin 500 mg tablet Active 500 mg PO DAILY October 05, 2022 12:00am 2 tabs in evening 24 hr metoprolol succinate 25 mg extended release oral tablet (12 sources) beta-Adrenergic Dennis Start: 10-05-2022 take 1 tablet by mouth twice daily Metoprolol Succinate 25 mg tablet extended release 24 hr Active 25 mg PO TWICE A DAY October 05, 2022 12:00am Start: 05-08-2022 Metoprolol Suc cinate ER 25 mg oral TABLET extended release 0 Refill(s) Start Date: 05/08/22 Status: Ordered Misc Medication (3 sources) Start: 06-07-2015 Misc Medication 0 Refill(s) Start Date: 06/07/15 Status: Ordered ofloxacin 3 mg/ml ophthalmic solution [...] Status: Ordered valsartan 160 mg oral tablet (12 sources) Angiotensin 2 Receptor Dennis Start: 10-05-2022 take 1 tablet by mouth once daily Valsartan 160 mg tablet Active 160 mg PO DAILY October 05, 2022 12:00am Start: 05-08-2022 valsartan 160 mg oral tablet 0 Refill(s) Start Date: 05/08/22 Status: Ordered Completed/Discontinued Medications Medication Drug Class(es) Dates Sig (Normalized) Sig (Original) naproxen 500 mg oral tablet (20 sources) Nonsteroidal Anti-inflammatory Drug Start: 10-05-2022 End: 11-20-2024 take 1 tablet by mouth twice daily as needed for pain Naproxen 500 mg tablet Discontinued 500 mg PO TWICE A DAY as needed for pain 180 2 March 29, 2024 5:07pm November 20, 2024 1:06pm Start: 05-13-2021 End: 05-20-2021 naproxen 500 mg oral tablet Dose : 500 mg = 1 tab(s), Oral, BID, X 7 day(s), # 14 tab(s), 0 Refill(s), 05/20/21 0:37:00 EST Start Date: 05/13/21 Stop Date: 05/20/21 Status: Ordered Problems Active Problems Problem Classification Problem Date Documented Date Episodic/Chronic Chronic obstructive pulmonary disease and bronchiectasis (1 source) Bronchitis; Translations: [Bronchitis, not specified as acute or chronic] Onset: 05-08-2022 Episodic Diabetes mellitus with complications (1 source) Type 2 diabetes mellitus with hyperglycemia; Translations: [Type 2 diabetes mellitus with hyperglycemia] Onset: 12-26-2024 Chronic Diabetes mellitus without complication (3 sources) Diabetes mellitus 06-07-2015 Chronic Disorders of lipid metabolism (3 sources) Hyperlipidemia 06-07-2015 Chronic Essential hypertension (3 sources) Hypertensive disorder 06-07-2015 Chronic Influenza (1 source) Influenza; Translations: [Influenza due to other identified influenza virus with other respiratory manifestations] Onset: 05-08-2022 Episodic Malaise and fatigue (15 sources) Fatigue; Translations: [Other fatigue] Onset: 02-13-2025 03-17-2023 Episodic Osteoarthritis (1 source) Osteoarthritis; Translations: [Unspecified osteoarthritis, unspecified site] Onset: 05-12-2021 Chronic Other connective tissue disease (1 source) Foot pain; Translations: [Pain in unspecified foot] Onset: 03-10-2021 Episodic Other nervous system disorders (14 sources) Polyneuropathy; Translations: [Polyneuropathy, unspecified] 10-05-2022 Chronic Other nervous system disorders (18 sources) Carpal tunnel syndrome; Translations: [Carpal tunnel syndrome, bilateral upper limbs] 10-05-2022 Chronic Other nervous system disorders (7 sources) Carpal tunnel syndrome, bilateral upper limbs; Translations: [Carpal tunnel syndrome] Onset: 12-31-2024 10-05-2022 Chronic Other nervous system disorders (7 sources) Polyneuropathy, unspecified; Translations: [Unspecified hereditary and idiopathic peripheral neuropathy] Onset: 12-31-2024 10-05-2022 Chronic Other nervous system disorders (5 sources) Carpal tunnel syndrome of right wrist; Translations: [Carpal tunnel syndrome, right upper limb] 03-17-2023 Chronic Other nervous system disorders (4 sources) Carpal tunnel syndrome of left wrist; Translations: [Carpal tunnel syndrome, left upper limb] 11-16-2023 Chronic Other non-traumatic joint disorders (20 sources) Pain in unspecified knee; Translations: [Knee pain] Onset: 12-31-2024 10-05-2022 Episodic Past or Other Problems Problem Classification Problem Date Documented Da te Episodic/Chronic Other screening for suspected conditions (not mental disorders or infectious disease) (1 source) Encounter for screening for malignant neoplasm of prostate; Translations: [Encounter for screening for malignant neoplasm of prostate] Onset: 05-09-2024 Episodic Results Test Name Value Interpretation Reference Range Facility Office Visit Reporton 2024 Office Visit Report [facility] [address] [place] [address] OFFICE VISIT Date of Service: 03/14/25 MR#: [id number] Acct: [id number] Patient: CALISTA DEAL Rep #: [id number] : 1950 Provider: Dr. Hung kapoor MD Age/Sex: 74/M Location: [facility] Status: Signed Intake Vital Signs 12/31/24 11:17 03/14/25 13:31 Height 6 ft 2 in BP 138/64 H 156/73 H Blood Pressure Location Lt brachial Lt brachial Position Sitting Sitting Respiration 17 17 Pulse 73 75 Pulse Source Monitor Monitor Temp 98.0 F 97.8 F Temp Source Temporal Temporal Pulse Oximetry (%) 93 95 Oxygen Delivery Method room air room air Intake Visit Reasons: B12 inject Chief Complaint: Allergies No Known Allergies Allergy (Verified 11/20/24 09:40) Have you fallen in the past year?: Yes Office Meds cyanocobalamin (vitamin B-12) 1,000 mcg/mL injection solution Performing Provider: Hung Jameson MD Performing Location: [facility] Administered by: Chantellebozena Sevilla on 03/14/25 12:47 Dose Route Admin Location Dispensed Lot Number Expiration Date Package NDC NDC Stitch Wheeler 1,000 mcg IM left deltoid 1 mL [id number] 09/26/26 13623-053-17 [id number] SO MERSET THERAP Comments: The patient presents for B12 injection for treatment of fatigue. He has fatigue. His last B12 injection was of benefit for fatigue. The patient is awake and alert. B12 1000mcg IM was administered today. There were no complications. Assessment and Plan Assessment and Plan (1) Fatigue: Status: Acute Orders: Orders Vitamin B12 Today R53.83 - Other fatigue Clinical Quality Measures Falls Risk Screening/Assistive Devices Have you fallen in the past year?: Yes 03/14/251656 Date Hung Jameson MD Cosigner Signature: Date (if applicable) CC: Normal [facility] Office Visit Reporton 2024 Office Visit Report [facility] [address] [place] [address] OFFICE VISIT Date of Service: 02/11/25 MR#: [id number] Acct: [id number] Patient: CALISTA DEAL Rep #: [id number] : 1950 Provider: Dr. Hung kapoor MD Age/Sex: 74/M [place] [facility] [place]: Signed Intake Vital Signs 11/20/24 09:36 02/11/25 13:16 Height 6 ft 2 in Weight: 346 lb BMI 44.4 BP 144/65 H 126/78 H Blood Pressure Location Lt brachial Rt brachial Position Sitting Sitting Respiration 16 17 Pulse 69 89 Pulse Source Monitor Monitor Temp 97.7 F L 98.2 F Temp Source Temporal Temporal Pulse Oximetry (%) 94 95 Oxygen Delivery Method room air room air Intake Visit Reasons: B12 inject Chief Complaint: Allergies No Known Allergies Allergy (Verified 11/20/24 09:40) Have you fallen in the past year?: Yes Office Meds cyanocobalamin (vitamin B-12) 1,000 mcg/mL injection solution Performing Provider: Hung Jameson MD Performing Location: [facility] Administered by: Chantelle Sevilla on 02/11/25 13:18 Dose Route Admin Location Dispensed Lot Number Expiration Date NDC Man ufacturer 1,000 mcg IM right deltoid 1 mL [id number] 09/26/26 24659-295-72 SOMERSE T THERAP Comments: The patient presents for B12 injection for treatment of fatigue. He has fatigue. His last B12 injection was of benefit for fatigue. The patient is awake and alert. B12 1000mcg IM was administered today. There were no complications. Assessment and Plan Assessment and Plan (1) Fatigue: Status: Acute Orders: Orders Vitamin B12 Today R53.83 - Other fatigue Clinical Quality Measures Falls Risk Screening/Assistive Devices Have you fallen in the past year?: Yes 02/11/251745 Date [facility]: Date (if applicable) CC: Normal [facility] Office Visit Reporton 2024 Office Visit Report [facility] [address] [place] [address] OFFICE VISIT Date of Service: 12/31/24 MR#: [id number] Acct: [id number] Patient: CALISTA DEAL Rep #: [id number] : 1950 Provider: Dr. Hung kapoor MD Age/Sex: 74/M Location: [facility] Status: Signed Intake Vital Signs 11/20/24 09:36 12/31/24 11:17 Height 6 ft 2 in 6 ft 2 in Weight: 346 lb BMI 44.4 BP 144/65 H 138/64 H Blood Pressure Location Lt brachial Lt brachial Position Sitting Sitting Respiration 16 17 Pulse 69 73 Pulse Source Monitor Monitor Temp 97.7 F L 98.0 F Temp Source Temporal Temporal Pulse Oximetry (%) 94 93 Oxygen Delivery Method room air room air Intake Visit Reasons: B12 inject Chief Complaint: Allergies No Known Allergies Allergy (Verified 11/20/24 09:40) Have you fallen in the past year?: Yes Office Meds cyanocobalamin (vitamin B-12) 1,000 mcg/mL injection solution Performing Provider: Hung Jameson MD Performing Location: [facility] Administered by: Chantelle Sevilla on 12/31/24 11:04 Dose Route Admin Location Dispensed Lot Number Expiration Date ND Man ufacturer 1,000 mcg IM left deltoid 1 mL [id number] 10/27/26 54357-752-47 KRISTINA ADAM Comments: The patient presents for B12 injection for treatment of fatigue. He has fatigue. His last B12 injection was of benefit for fatigue. The patient is awake and alert. B12 1000mcg IM was administered today. There were no complications. Assessment and Plan Assessment and Plan (1) Fatigue: Status: Acute Orders: Orders Vitamin B12 Today R53.83 - Other fatigue Clinical Quality Measures Falls Risk Screening/Assistive Devices Have you fallen in the past year?: Yes 12/31/24 170 Date Hung Jameson MD [facility] Signature: Date (if applicable) CC: Normal [facility] Anion gap in Serum or Plasma Ordered By: Leela Hamm on 12-20-2024 Anion gap [Moles/Vol] 10 mmol/L 5-15 [facility] BUN/creatinine ratioOrdered By: Leela Hamm on 12-20-2024 Urea nitrogen/Creatinine [Mass ratio] 16.7 mg/mg 10-20 [facility] Bilirubin, totalOrdered By: Leela Hamm on 12-20-2024 Bilirubin [Mass/Vol] 0.43 mg/dL 0.00-1.30 [facility] Carbon dioxide, total [Moles /volume] in Central venous bloodOrdered By: Leela Hamm on 12-20-2024 CO2 [Moles/Vol] 26.6 mmol/L 21.0-32.0 [facility] Chloride assayOrdered By: Sonal Hamm on 12-20-2024 Chloride [Moles/Vol] 100 mmol/L 98-108 [facility] Comprehensive Metabolic Prof ilon 12-20-2024 Albumin [Mass/Vol] 3.8 g/dL Normal 3.4-4.8 [facility] Comment on above: Performed By: #### L 500.4050, L501.9985, L506.1001, L502.0250 #### [facility] [address] [place], [address] Albumin/Globulin [Mass ratio] 1.3 {ratio} Normal 0.9-2.4 [facility] Comment on above: Performed By: #### L 500.4050, L501.9985, L506.1001, L502.0250 #### [facility] [address] [place], [address] ALK PHOS 77 U/L Normal 40-129 [facility] Comment on above: Performed By: #### L 500.4050, L501.9985, L506.1001, L502.0250 #### [facility] [address] [place], [address] ALT [Catalytic activity/Vol] 22 U/L Normal <=46 [facility] Comment on above: Performed By: #### L 500.4050, L501.9985, L506.1001, L502.0250 #### [facility] [address] [place], [address] AST [Catalytic activity/Vol] 27 U/L Normal <=37 [facility] Comment on above: Performed By: #### L 500.4050, L501.9985, L506.1001, L502.0250 #### [facility] [address] [place], [address] Bilirubin [Mass/Vol] 0.43 mg/dL Normal 0.00-1.30 [facility] Comment on above: Performed By: #### L 500.4050, L501.9985, L506.1001, L502.0250 #### [facility] [address] [place], [address] BUN/CRE 16.7 RATIO Normal 10-20 [facility] Comment on above: Performed By: #### L 500.4050, L501.9985, L506.1001, L502.0250 #### [facility] [address] [place], [address] Calcium [Mass/Vol] 9.8 mg/dL Normal 7.6-11.0 [facility] Comment on above: Performed By: #### L 500.4050, L501.9985, L506.1001, L502.0250 #### [facility] [address] [place], [address] Chloride [Moles/Vol] 100 mmol/L Normal 98-108 [facility] Comment on above: Performed By: #### L 500.4050, L501.9985, L506.1001, L502.0250 #### [facility] [address] [place], [address] CO2 [Moles/Vol] 26.6 mmol/L Normal 21.0-32.0 [facility] Comment on above: Performed By: #### L 500.4050, L501.9985, L506.1001, L502.0250 #### [facility] [address] [place], [address] Creatinine [Mass/Vol] 0.85 mg/dL Normal 0.70-1.20 [facility] Comment on above: Performed By: #### L 500.4050, L501.9985, L506.1001, L502.0250 #### [facility] [address] [place], [address] GAP 10 Normal 5-15 [facility] Comment on above: Performed By: #### L 500.4050, L501.9985, L506.1001, L502.0250 #### [facility] [address] [place], [address] GFR/1.73 sq M.predicted among non-blacks MDRD (S/P/Bld) [Vol rate/Area] 91 mL/min/{1.73_m2} Normal >[address] [facility] Comment on above: Result Comment: mL/m in/1.73m2 CKD-EPI Creatinine Equation (2020) Performed By: #### L 500.4050, L501.9985, L506.1001, L502.0250 #### [facility] [address] [place], [address] Globulin (S) [Mass/Vol] 3.0 g/dL Normal 2.2-4.2 [facility] Comment on above: Performed By: #### L 500.4050, L501.9985, L506.1001, L502.0250 #### [facility] [address] [place], [address] Glucose [Mass/Vol] 188 mg/dL High 70-99 [facility] Comment on above: Performed By: #### L 500.4050, L501.9985, L506.1001, L502.0250 #### [facility] [address] [place], [address] Potassium [Moles/Vol] 4.5 mmol/L Normal 3.3-5.1 [facility] Comment on above: Performed By: #### L 500.4050, L501.9985, L506.1001, L502.0250 #### [facility] [address] [place], [address] Sodium [Moles/Vol] 136 mmol/L Normal 133-145 [facility] Comment on above: Performed By: #### L 500.4050, L501.9985, L506.1001, L502.0250 #### [facility] [address] [place], [address] T PROT 6.7 g/dL Normal 5.9-8.4 [facility] Comment on above: Performed By: #### L 500.4050, L501.9985, L506.1001, L502.0250 #### [facility] [address] [place], [address] Urea nitrogen [Mass/Vol] 14 mg/dL Normal 4-19 [facility] Comment on above: Performed By: #### L 500.4050, L501.9985, L506.1001, L502.0250 #### [facility] [address] [place], [address] Glomerular filtration rate ( GFR) estimation/1.73 sq m using serum, plasma, or whole bOrdered By: Leela Hamm on 12-20-2024 GFR/1.73 sq M.predicted among non-blacks MDRD (S/P/Bld) [Vol rate/Area] 91 mL/min/{1.73_m2} >[address] [facility] Comment on above: mL/min/1.73m2 CKD-EP I Creatinine Equation (2020) Hemoglobin A1con 12-20-2024 HbA1c (Bld) [Mass fraction] 8.1 % High <=5.6 [facility] Comment on above: Result Comment: Norm al < 5.7 % Prediabetic 5.7 - 6.4 % Diabetic >or= 6.5 % Please note range changes. Performed By: #### L 500.4050, L501.9985, L506.1001, L502.0250 #### [facility] [address] [place], [address] Hemoglobin A1c percentageOrd ered By: Leela Hamm on 12-20-2024 HbA1c (Bld) [Mass fraction] 8.1 % High <5.7 [facility] Comment on above: Normal < 5.7 % Predi abetic 5.7 - 6.4 % Diabetic >or= 6.5 % Please note range changes. Laboratory - Chemistry and C hemistry - challengeOrdered By: Leela Hamm on 12-20-2024 AST [Catalytic activity/Vol] 27 U/L <38 [facility] Microalb:Creat Ratio,Random URon 12-20-2024 Creatinine [Mass/Vol] 190.00 mg/dL Normal 39.00- 259.0 0 [facility] Comment on above: Performed By: #### L 500.4050, L501.9985, L506.1001, L502.0250 #### [facility] [address] [place], [address] MALB:CREAT 17.2 mg/g CRE Normal <30 mg/g CRE [facility] Comment on above: Performed By: #### L 500.4050, L501.9985, L506.1001, L502.0250 #### [facility] [address] [place], [address] MICROALBUMIN,UR 32.6 mg/L Normal <20 mg/L [facility] Comment on above: Performed By: #### L 500.4050, L501.9985, L506.1001, L502.0250 #### [facility] [address] [place], [address] Potassium measurement (mass/ volume)Ordered By: Leela Hamm on 12-20-2024 Potassium (Unsp spec) [Mass/Vol] 4.5 mmol/L 3.3-5.1 [facility] Random urine creatinine inga urement (mass/volume)Ordered By: Leela Hamm on 12-20-2024 Creatinine Unsp time (U) [Mass/Vol] 190.00 mg/dL 39.00-259.0 0 [facility] Serum creatinine measurement (mass/volume)Ordered By: Leela Hamm on 12-20-2024 Creatinine [Mass/Vol] 0.85 mg/dL 0.70-1.20 [facility] Serum globulin measurementOr dered By: Leela Hamm on 12-20-2024 Globulin (S) [Mass/Vol] 3.0 g/dL 2.2-4.2 [facility] Serum glucose measurement (m ass/volume)Ordered By: Leela Hamm on 12-20-2024 Glucose [Mass/Vol] 188 mg/dL High 70-99 [facility] Serum or plasma alanine collado otransferase (ALT) measurementOrdered By: Leela Hamm on 12-20-2024 ALT [Catalytic activity/Vol] 22 U/L <47 [facility] Serum or plasma albumin inga urement (mass/volume)Ordered By: Leela Hamm on 12-20-2024 Albumin [Mass/Vol] 3.8 g/dL 3.4-4.8 [facility] Serum or plasma albumin/glob ulin mass ratioOrdered By: Leela Hamm on 12-20-2024 Albumin/Globulin [Mass ratio] 1.3 {ratio} 0.9-2.4 [facility] Serum or plasma alkaline blanco sphatase measurementOrdered By: Leela Hamm on 12-20-2024 ALP [Catalytic activity/Vol] 77 U/L 40-129 [facility] Serum or plasma calcium inga urement (mass/volume)Ordered By: Leela Hamm on 12-20-2024 Calcium [Mass/Vol] 9.8 mg/dL 7.6-11.0 [facility] Serum or plasma urea nitroge n measurement (mass/volume)Ordered By: Leela Hamm on 12-20-2024 Urea nitrogen [Mass/Vol] 14 mg/dL 4-19 [facility] Sodium levelOrdered By: Zachariah Hamm on 12-20-2024 Sodium [Moles/Vol] 136 mmol/L 133-145 [facility] Total proteinOrdered By: Mendy schmitt Runbharati on 12-20-2024 Protein [Mass/Vol] 6.7 g/dL 5.9-8.4 [facility] Urine albumin measurement [facility] detection limit of 20 mg/L or less (mass/volume)Ordered By: Leela Hamm on 12-20-2024 Albumin DL <= 20 mg/L (U) [Mass/Vol] 32.6 mg/L <20 mg/L [facility] Vitamin D,25 Hydroxyon 12-20 Vitamin D 25-OH 41.7 ng/mL Normal 30-100 [facility] Comment on above: Result Comment: Diana min D Status Deficiency: <20 ng/mL (50nmol/L) Insufficiency: 20-30 ng/mL (50-75 nmol/L) Sufficiency: 30-100 ng/mL (75-250 nmol/L) Toxicity: >100 ng/mL (>250 nmol/L) Performed By: #### L 500.4050, L501.9985, L506.1001, L502.0250 #### [facility] [address] [place], [place], [address] Neurology Visit Reporton Neurology Visit Report [facility] [address], [address] [place], [place] [address] OFFICE VISIT Date of Service: 11/20/24 MR#: [id number] Acct: [id number] Name: CALISTA DEAL Rep #: [id number] : 1950 Provider: Dr. Hung kapoor MD Age/Sex: 74/M [place] [facility] [place]: Signed [facility] Chief Complaint: Details: Interim History: Calista returns for follow-up visit. He has a history of hypertension, diabetes mellitus, hyperlipidemia and sleep apnea on CPAP. Since around 2017, he has been experiencing numbness and burning pain in the feet however since 2022, his lower neuropathic pain in the feet diminished significantly. He denied having any weakness in the lower extremities. He has had occasional low back pain since the . He denied having any lower extremity radicular pain. He has chronic bilateral knee arthritic pain and this limits his mobility. He is able to ambulate short distances independently. For longer distances, he uses a 4 pronged cane. Due to his medical condition, he stated that he was not felt to be a surgical candidate for knee replacement surgery. He has received knee joint injections and these have been of some benefit. Since around 2020, he has been experiencing numbness and tingling pain in the hands that is worse in the morning upon awakening. He denied having any neck pain or radicular pain in the upper e xtremities. The pain in the hands, at times, extends up to the shoulder region. He experiences occasional weakness in the hands and occasionally drops objects. He has bilateral carpal tunnel syndrome (severe on the right and moderate on the left). A right carpal tunnel corticosteroid injection administered at this office in February 2023 was of benefit. The left carpal tunnel corticosteroid injection administered at this office earlier in 2023 was of benefit with resultant pain reduction lasting about 4 months. Bilateral carpal tunnel injections administered at this office later in 2023 (February 2024) were not of significant benefit. Wrist splints have been of some benefit for his carpal tunnel pain symptoms. He has used bafj-ubz-ckbrzbe medications such as acetaminophen, aspirin, ibuprofen and naproxen and these were of some benefit for his musculoskeletal pain. Prescription naproxen 500 mg twice daily as needed has been of benefit. He has had surgery for a left retinal detachment. He has had bilateral cataract surgery. He denied having dizziness or headaches. B12 injections have been of benefit for his fatigue. A serum free light chains was abnormal. A subsequent serum protein electrophoresis, serum immunofixation and urine immunofixation were unremarkable. Physical Exam: Neuro: The patient is awake and alert and responds appropriately; motor strength is 5/5 in the first dorsal interosseous bilaterally and 4/5 in the abductor pollicis brevis bilaterally Heart: Regular rate and rhythm Neck: No bruits On examination in February 2023, mild atrophy was noted in the right abductor pollicis brevis muscle Supplemental Info Left knee x-rays (01/13/2015): COMPARISON: ??? Comparison is made with prior study dated September 05, 2012. FINDINGS: Normal visualized distal femur.??? Normal visualized proximal tibia and fibula.??? Normal proximal tibiofibular articulation. There is severe degenerative arthrosis of the medial femorotibial compartment with severe joint space narrowing. This has progressed since prior study.??? There is moderate degenerative arthrosis of the lateral femorotibial compartment with moderate joint space narrowing.??? There is moderate degenerative arthrosis of the patellofemoral articulation. Stable quadriceps tendon and infrapatellar tendon enthesopathy. IMPRESSION: Degenerative arthrosis. This has progressed since prior study. Vitamin D (02/25/2022): Normal. Nerve conduction studies of the lower extremities (EMG was not performed) (04/26/2022): Findings: Nerve conduction studies were performed in the bilateral lower extremities. The right peroneal motor study recording the extensor digitorum brevis showed a markedly reduced amplitude, borderline distal latency and mildly slowed conduction velocity. No conduction block or focal slowing was present across the fibular neck. The right peroneal motor study recording the tibialis anterior showed a reduced amplitude, normal distal latency and normal conduction velocity. No conduction block or focal slowing was present across the fibular neck. The right tibial motor study recording the abductor hallucis brevis showed a reduced amplitude and normal distal latency. The conduction velocity could not be calculated due to the absence of a response at the proximal stimulation site. The right sural sensory response was absent.??? The right superficial peroneal sensory response was absent.??? The left peroneal motor study recording the extensor digitorum (more content not included)... Normal [facility] Microalb:Creat Ratio,Random URon 11-16-2024 MALB:CREAT 17.0 mg/g CRE Normal [facility] Comment on above: Result Comment: AMENDED REPORT 11/16/24 2702 MALB:CREAT previously reported as: 169.8 mg/g CRE Performed By: #### L 500.4050, L502.0250, L506.1001, L501.9985 ####[facility] [address] [place], [address] Anion gap in Serum or Plasma Ordered By: Leela Hamm on 09-18-2024 Anion gap [Moles/Vol] 10 mmol/L 5-15 [facility] BUN/creatinine ratioOrdered By: Leela Hamm on 09-18-2024 Urea nitrogen/Creatinine [Mass ratio] 17.2 mg/mg 10-20 [facility] Bilirubin, totalOrdered By: Leela Hamm on 09-18-2024 Bilirubin [Mass/Vol] 0.25 mg/dL 0.00-1.30 [facility] Carbon dioxide, total [Moles /volume] in Central venous bloodOrdered By: Leela Hamm on 09-18-2024 CO2 [Moles/Vol] 24.4 mmol/L 21.0-32.0 [facility] Chloride assayOrdered By: Sonal Hamm on 09-18-2024 Chloride [Moles/Vol] 99 mmol/L 98-108 [facility] Comprehensive Metabolic Prof ilon 09-18-2024 Albumin [Mass/Vol] 3.6 g/dL Normal 3.4-4.8 [facility] Comment on above: Performed By: #### L 500.4050, L502.0250, L506.1001, L501.9985 ####[facility] [address] [place], [address] Albumin/Globulin [Mass ratio] 1.2 {ratio} Normal 0.9-2.4 [facility] Comment on above: Performed By: #### L 500.4050, L502.0250, L506.1001, L501.9985 ####[facility] [address] [place], [address] ALK PHOS 86 U/L Normal 40-129 [facility] Comment on above: Performed By: #### L 500.4050, L502.0250, L506.1001, L501.9985 ####[facility] [address] [place], [address] ALT [Catalytic activity/Vol] 22 U/L Normal <=46 [facility] Comment on above: Performed By: #### L 500.4050, L502.0250, L506.1001, L501.9985 ####[facility] [address] [place], [address] AST [Catalytic activity/Vol] 23 U/L Normal <=37 [facility] Comment on above: Performed By: #### L 500.4050, L502.0250, L506.1001, L501.9985 ####[facility] [address] [place], [address] Bilirubin [Mass/Vol] 0.25 mg/dL Normal 0.00-1.30 [facility] Comment on above: Performed By: #### L 500.4050, L502.0250, L506.1001, L501.9985 ####[facility] [address] [place], [address] BUN/CRE 17.2 RATIO Normal 10-20 [facility] Comment on above: Performed By: #### L 500.4050, L502.0250, L506.1001, L501.9985 ####[facility] [address] [place], [address] Calcium [Mass/Vol] 9.6 mg/dL Normal 7.6-11.0 [facility] Comment on above: Performed By: #### L 500.4050, L502.0250, L506.1001, L501.9985 ####[facility] [address] [place], [address] Chloride [Moles/Vol] 99 mmol/L Normal 98-108 [facility] Comment on above: Performed By: #### L 500.4050, L502.0250, L506.1001, L501.9985 ####[facility] [address] [place], [address] CO2 [Moles/Vol] 24.4 mmol/L Normal 21.0-32.0 [facility] Comment on above: Performed By: #### L 500.4050, L502.0250, L506.1001, L501.9985 ####[facility] [address] [place], [address] Creatinine [Mass/Vol] 0.95 mg/dL Normal 0.70-1.20 [facility] Comment on above: Performed By: #### L 500.4050, L502.0250, L506.1001, L501.9985 ####[facility] [address] [place], [address] GAP 10 Normal 5-15 [facility] Comment on above: Performed By: #### L 500.4050, L502.0250, L506.1001, L501.9985 ####[facility] [address] [place], [address] GFR/1.73 sq M.predicted among non-blacks MDRD (S/P/Bld) [Vol rate/Area] 83 mL/min/{1.73_m2} Normal >[address] [facility] Comment on above: Result Comment: mL/m in/1.73m2 CKD-EPI Creatinine Equation (2020) Performed By: #### L 500.4050, L502.0250, L506.1001, L501.9985 ####[facility] [address] [place], [address] Globulin (S) [Mass/Vol] 3.1 g/dL Normal 2.2-4.2 [facility] Comment on above: Performed By: #### L 500.4050, L502.0250, L506.1001, L501.9985 ####[facility] [address] [place], [address] Glucose [Mass/Vol] 258 mg/dL High 70-99 [facility] Comment on above: Performed By: #### L 500.4050, L502.0250, L506.1001, L501.9985 ####[facility] [address] [place], [address] Potassium [Moles/Vol] 4.4 mmol/L Normal 3.3-5.1 [facility] Comment on above: Performed By: #### L 500.4050, L502.0250, L506.1001, L501.9985 ####[facility] [address] [place], [address] Sodium [Moles/Vol] 134 mmol/L Normal 133-145 [facility] Comment on above: Performed By: #### L 500.4050, L502.0250, L506.1001, L501.9985 ####[facility] [address] [place], [address] T PROT 6.8 g/dL Normal 5.9-8.4 [facility] Comment on above: Performed By: #### L 500.4050, L502.0250, L506.1001, L501.9985 ####[facility] [address] [place], [address] Urea nitrogen [Mass/Vol] 16 mg/dL Normal 4-19 [facility] Comment on above: Performed By: #### L 500.4050, L502.0250, L506.1001, L501.9985 ####[facility] [address] [place], [address] Glomerular filtration rate ( GFR) estimation/1.73 sq m using serum, plasma, or whole bOrdered By: Leela Hamm on 09-18-2024 GFR/1.73 sq M.predicted among non-blacks MDRD (S/P/Bld) [Vol rate/Area] 83 mL/min/{1.73_m2} >[address] [facility] Comment on above: mL/min/1.73m2 CKD-EP I Creatinine Equation (2020) Hemoglobin A1con 09-18-2024 HbA1c (Bld) [Mass fraction] 8.6 % High <=5.6 [facility] Comment on above: Result Comment: Norm al < 5.7 % Prediabetic 5.7 - 6.4 % Diabetic >or= 6.5 % Please note range changes. Performed By: #### L 500.4050, L502.0250, L506.1001, L501.9985 ####[facility] [address] [place], [address] Hemoglobin A1c percentageOrd ered By: Leela Hamm on 09-18-2024 HbA1c (Bld) [Mass fraction] 8.6 % High <5.7 [facility] Comment on above: Normal < 5.7 % Predi abetic 5.7 - 6.4 % Diabetic >or= 6.5 % Please note range changes. Laboratory - Chemistry and C hemistry - challengeOrdered By: Leela Hamm on 09-18-2024 AST [Catalytic activity/Vol] 23 U/L <38 [facility] Potassium measurement (mass/ volume)Ordered By: Leela Hamm on 09-18-2024 Potassium (Unsp spec) [Mass/Vol] 4.4 mmol/L 3.3-5.1 [facility] Random urine creatinine inga urement (mass/volume)Ordered By: Leela Hamm on 09-18-2024 Creatinine Unsp time (U) [Mass/Vol] 205.00 mg/dL 39.00-259.0 0 [facility] Serum creatinine measurement (mass/volume)Ordered By: Leela Hamm on 09-18-2024 Creatinine [Mass/Vol] 0.95 mg/dL 0.70-1.20 [facility] Serum globulin measurementOr dered By: Leela Hamm on 09-18-2024 Globulin (S) [Mass/Vol] 3.1 g/dL 2.2-4.2 [facility] Serum glucose measurement (m ass/volume)Ordered By: Leela Hamm on 09-18-2024 Glucose [Mass/Vol] 258 mg/dL High 70-99 [facility] Serum or plasma alanine collado otransferase (ALT) measurementOrdered By: Leela Hamm on 09-18-2024 ALT [Catalytic activity/Vol] 22 U/L <47 [facility] Serum or plasma albumin inga urement (mass/volume)Ordered By: Leela Hamm on 09-18-2024 Albumin [Mass/Vol] 3.6 g/dL 3.4-4.8 [facility] Serum or plasma albumin/glob ulin mass ratioOrdered By: Leela Hamm on 09-18-2024 Albumin/Globulin [Mass ratio] 1.2 {ratio} 0.9-2.4 [facility] Serum or plasma alkaline blanco sphatase measurementOrdered By: Leela Hamm on 09-18-2024 ALP [Catalytic activity/Vol] 86 U/L 40-129 [facility] Serum or plasma calcium inga urement (mass/volume)Ordered By: Leela Hamm on 09-18-2024 Calcium [Mass/Vol] 9.6 mg/dL 7.6-11.0 [facility] Serum or plasma urea nitroge n measurement (mass/volume)Ordered By: Leela Hamm on 09-18-2024 Urea nitrogen [Mass/Vol] 16 mg/dL 4-19 [facility] Sodium levelOrdered By: Zachariah Hamm on 09-18-2024 Sodium [Moles/Vol] 134 mmol/L 133-145 [facility] Total proteinOrdered By: Mendy Hamm on 09-18-2024 Protein [Mass/Vol] 6.8 g/dL 5.9-8.4 [facility] Urine albumin measurement [facility] detection limit of 20 mg/L or less (mass/volume)Ordered By: Leela Hamm on 09-18-2024 Albumin DL <= 20 mg/L (U) [Mass/Vol] 34.8 mg/L NO RANGE EST. [facility] Vitamin D,25 Hydroxyon 09-18 Vitamin D 25-OH 36.7 ng/mL Normal 30-100 [facility] Comment on above: Result Comment: Diana min D Status Deficiency: <20 ng/mL (50nmol/L) Insufficiency: 20-30 ng/mL (50-75 nmol/L) Sufficiency: 30-100 ng/mL (75-250 nmol/L) Toxicity: >100 ng/mL (>250 nmol/L) Performed By: #### L 500.4050, L502.0250, L506.1001, L501.9985 ####[facility] [address] [place], [address] Comprehensive Metabolic [facility] ilon 06-22-2024 Albumin [Mass/Vol] 3.3 g/dL Normal 3.2-5.0 [facility] Comment on above: Performed By: #### L 500.4050, L500.4100, L501.9985 ####[facility] [address] [place], [address] Albumin/Globulin [Mass ratio] 0.9 {ratio} Normal 0.9-2.4 [facility] Comment on above: Performed By: #### L 500.4050, L500.4100, L501.9985 ####[facility] [address] [place], [address] ALK P 85 U/L Normal 45-117 [facility] Comment on above: Performed By: #### L 500.4050, L500.4100, L501.9985 ####[facility] [address] [place], [address] ALT [Catalytic activity/Vol] 30 U/L Normal 16-61 [facility] Comment on above: Performed By: #### L 500.4050, L500.4100, L501.9985 ####[facility] [address] [place], [address] AST [Catalytic activity/Vol] 22 U/L Normal 15-37 [facility] Comment on above: Performed By: #### L 500.4050, L500.4100, L501.9985 ####[facility] [address] [place], [address] Bilirubin [Mass/Vol] 0.50 mg/dL Normal 0.20-1.00 [facility] Comment on above: Result Comment: For patients on eltrombopag therapy, use of Dimension [place] TBIL is not recommended. Performed By: #### L 500.4050, L500.4100, L501.9985 ####[facility] [address] [place], [address] BUN/CRE 14.8 RATIO Normal 10-20 [facility] Comment on above: Performed By: #### L 500.4050, L500.4100, L501.9985 ####[facility] [address] [place], [address] CA,Total 9.5 mg/dL Normal 8.5-10.1 [facility] Comment on above: Performed By: #### L 500.4050, L500.4100, L501.9985 ####[facility] [address] [place], [address] Chloride [Moles/Vol] 102 mmol/L Normal 98-107 [facility] Comment on above: Performed By: #### L 500.4050, L500.4100, L501.9985 ####[facility] [address] [place], [address] CO2 [Moles/Vol] 27.0 mmol/L Normal 21.0-32.0 [facility] Comment on above: Performed By: #### L 500.4050, L500.4100, L501.9985 ####[facility] [address] [place], [address] Creatinine [Mass/Vol] 0.88 mg/dL Normal 0.70-1.30 [facility] Comment on above: Result Comment: The validity of the calculated GFR GFRAA in patients over 70 years has not been determined. Clinical correlation is essential. Performed By: #### L 500.4050, L500.4100, L501.9985 ####[facility] [address] [place], [address] EST GFR - AA 109 mL/min Normal >60 [facility] Comment on above: Result Comment: Afri can [place] GFR Calc Performed By: #### L 500.4050, L500.4100, L501.9985 ####[facility] [address] [place], [address] GAP 6 Normal 5-15 [facility] Comment on above: Performed By: #### L 500.4050, L500.4100, L501.9985 ####[facility] [address] [place], [address] GFR/1.73 sq M.predicted among non-blacks MDRD (S/P/Bld) [Vol rate/Area] 90 mL/min/{1.73_m2} Normal >[address] [facility] Comment on above: Result Comment: Non- GFR Calc Performed By: #### L 500.4050, L500.4100, L501.9985 ####[facility] [address] [place], [address] Globulin (S) [Mass/Vol] 3.7 g/dL Normal 2.2-4.2 [facility] Comment on above: Performed By: #### L 500.4050, L500.4100, L501.9985 ####[facility] [address] [place], [address] Glucose [Mass/Vol] 122 mg/dL High 74-106 [facility] Comment on above: Result Comment: Fast ing Glucose result from 100 to 125 mg/dL suggests IMPAIRED HOMEOSTASIS per A.D.A. criteria. Performed By: #### L 500.4050, L500.4100, L501.9985 ####[facility] [address] [place], [address] Potassium [Moles/Vol] 4.8 mmol/L Normal 3.5-5.1 [facility] Comment on above: Performed By: #### L 500.4050, L500.4100, L501.9985 ####[facility] [address] [place], [address] Sodium [Moles/Vol] 136 mmol/L Normal 136-145 [facility] Comment on above: Performed By: #### L 500.4050, L500.4100, L501.9985 ####[facility] [address] [place], [address] T PROT 7.0 g/dL Normal 6.4-8.2 [facility] Comment on above: Performed By: #### L 500.4050, L500.4100, L501.9985 ####[facility] [address] [place], [address] Urea nitrogen [Mass/Vol] 13 mg/dL Normal 7-18 [facility] Comment on above: Performed By: #### L 500.4050, L500.4100, L501.9985 ####[facility] [address] [place], [address] Hemoglobin A1con 06-22-2024 HbA1c (Bld) [Mass fraction] 7.6 % High 3.8-5.6 [facility] Comment on above: Result Comment: Norm al < 5.7 % Prediabetic 5.7 - 6.4 % Diabetic >or= 6.5 % Please note range changes. Performed By: #### L 500.4050, L500.4100, L501.9985 ####[facility] [address] [place], [address] Lipid Profileon 06-22-2024 Cholesterol [Mass/Vol] 136 mg/dL Normal [address] [facility] Comment on above: Result Comment: <200 mg/dL Desirable 200-240 mg/dL Borderline >240 mg/dL High Risk Performed By: #### L 500.4050, L500.4100, L501.9985 ####[facility] [address] [place], [address] Cholesterol in HDL [Mass/Vol] 48 mg/dL Normal [facility] Comment on above: Result Comment: The drugs N-Acetylcysteine and Metamizole may falsely depress this assay. Reference Range HDL <40 mg/dL Low HDL Cholesterol HDL >or= 60 mg/dL High HDL Cholesterol Performed By: #### L 500.4050, L500.4100, L501.9985 ####[facility] [address] [place], [address] Cholesterol in LDL [Mass/Vol] 74 mg/dL Normal 0-130 [facility] Comment on above: Performed By: #### L 500.4050, L500.4100, L501.9985 ####[facility] [address] [place], [address] Cholesterol in VLDL [Mass/Vol] 14 mg/dL Normal 5-40 [facility] Comment on above: Performed By: #### L 500.4050, L500.4100, L501.9985 ####[facility] [address] [place], [address] Triglyceride [Mass/Vol] 69 mg/dL Normal [facility] Comment on above: Result Comment: The drugs N-Acetylcysteine and Metamizole may falsely depress this assay. Serum Triglycerides Reference Interval Normal <150 mg/dL Borderline high 150 - 199 mg/dL High 200 - 499 mg/dL Very High > or = 500 mg/dL Performed By: #### L 500.4050, L500.4100, L501.9985 ####[facility] [address] [place], [address] PSA,Total - Annual Screenon 04-13-2024 PSA,TOT SCREEN 0.32 ng/mL Normal 0.00-4.00 [facility] Comment on above: Order Comment: Order Date: 04/13/24 Order Info: [id number] - PSA Result Comment: This test was performed using the TPSA assay method for the [employer] chemistry system. Values obtained with different assay methods cannot be used interchangably. When changing PSA assays in the course of monitoring a patient, additional sequential testing should be carried out to confirm baseline values. Performed By: #### L 501.9910 #### [facility] [address] [place], [place], [id number] Neurology Visit Reporton Neurology Visit Report [facility] [address] [place] [address], [address] [place] [address] OFFICE VISIT Date of Service: 03/29/24 MR#: [id number] Acct: [id number] Name: CALISTA DEAL Rep #: [id number] : 1950 Provider: Dr. Hung kapoor MD Age/Sex: 73/M [place] [facility] [place] Status: Signed HPI HPI Chief Complaint: Details: Interim History: Calista returns for follow-up visit. He has a history of hypertension, diabetes mellitus, hyperlipidemia and sleep apnea on CPAP. Since around 2017, he has been experiencing numbness and burning pain in the feet however since 2022, his lower neuropathic pain in the feet diminished significantly. He denied having any weakness in the lower extremities. He has had occasional low back pain since the . He denied having any lower extremity radicular pain. He has chronic bilateral knee arthritic pain and this limits his mobility. He is able to ambulate short distances independently. For longer distances, he uses a 4 pronged cane. Due to his medical condition, he stated that he was not felt to be a surgical candidate for knee replacement surgery. He has received knee joint injections and these have been of some benefit. Naproxen has been of benefit for his musculoskeletal pain. Since around 2020, he has been experiencing numbness and tingling pain in the hands that is worse in the morning upon awakening. He denied having any neck pain or radicular pain in the upper extremities. The pain in the hands, at times, extends up to the shoulder region. He experiences occasional weakness in the hands and occasionally drops objects. He has bilateral carpal tunnel syndrome (severe on the right and moderate on the left). A right carpal tunnel corticosteroid injection administered at this office in February 2023 was of benefit. The left carpal tunnel corticosteroid injection administered at this office earlier in 2023 was of benefit with resultant pain reduction lasting about 4 months. He now indicates that his bilateral hand pain is again prominent. Wrist splints have been of some benefit for his carpal tunnel pain symptoms. He has used [id number] medications such as acetaminophen, aspirin, ibuprofen and naproxen and these were of some benefit for his musculoskeletal pain. Prescription naproxen 500 mg twice daily as needed has been of benefit. He has had surgery for a left retinal detachment. He has had bilateral cataract surgery. He denied having dizziness or headaches. A B12 injection was of benefit for his fatigue. A serum free light chains was abnormal. A subsequent serum protein electrophoresis, serum immunofixation and urine immunofixation were unremarkable. Physical Exam: Neuro: The patient is awake and alert and responds appropriately; motor strength is 5/5 in the first dorsal interosseous bilaterally and foot dorsiflexors bilaterally and 4/5 in the right abductor pollicis brevis and 4+/5 in the left abductor pollicis brevis On examination in February 2023, mild atrophy was noted in the right abductor pollicis brevis muscle Supplemental Info Left knee x-rays (01/13/2015): COMPARISON: ??? Comparison is made with prior study dated September 05, 2012. FINDINGS: Normal visualized distal femur.??? Normal visualized proximal tibia and fibula.??? Normal proximal tibiofibular articulation. There is severe degenerative arthrosis of the medial femorotibial compartment with severe joint space narrowing. This has progressed since prior study.??? There is moderate degenerative arthrosis of the lateral femorotibial compartment with moderate joint space narrowing.??? There is moderate degenerative arthrosis of the patellofemoral articulation. Stable quadriceps tendon and infrapatellar tendon enthesopathy. IMPRESSION: Degenerative arthrosis. This has progressed since prior study. Vitamin D (02/25/2022): Normal. Nerve conduction studies of the lower extremities (EMG was not performed) (04/26/2022): Findings: Nerve conduction studies were performed in the bilateral lower extremities. The right peroneal motor study recording the extensor digitorum brevis showed a markedly reduced amplitude, borderline distal latency and mildly slowed conduction velocity. No conduction block or focal slowing was present across the fibular neck. The right peroneal motor study recording the tibialis anterior showed a reduced amplitude, normal distal latency and normal conduction velocity. No conduction block or focal slowing was present across the fibular neck. The right tibial motor study recording the abductor hallucis brevis showed a reduced amplitude and normal distal latency. The conduction velocity could not be calculated due to the absence of a response at the proximal stimulation site. The right sural sensory response was absent.??? The right superficial peroneal sensory response was absent.??? The left peroneal motor study recording the (more content not included)... Normal [facility] Basophil percentageOrdered B y: Leela Hamm on 09-14-2023 Bilirubin [Mass/Vol] 0.50 mg/dL 0.20-1.00 [facility] Comment on above: For patients on eltr ombopag therapy, use of Dimension [place] TBIL is not recommended. Chloride [Moles/Vol] 101 mmol/L 98-107 [facility] Cholesterol [Mass/Vol] 137 mg/dL <[address] [facility] Comment on above: <200 mg/dL Desirable 200-240 mg/dL Borderline >240 mg/dL High Risk Glucose [Mass/Vol] 212 mg/dL 74-106 [facility] Comment on above: Glucose result great er than or equal to 200 mg/dLsuggests DIABETES MELLITUS per A.D.A. criteria. Potassium [Moles/Vol] 4.7 mmol/L 3.5-5.1 [facility] Protein [Mass/Vol] 7.0 g/dL 6.4-8.2 [facility] Sodium [Moles/Vol] 134 mmol/L 136-145 [facility] Triglyceride [Mass/Vol] 75 mg/dL <199 [facility] Comment on above: The drugs N-Acetylcy steine and Metamizole may falsely depress this assay.Serum Triglycerides Reference Interval Normal <150 mg/dL Borderline high 150 - 199 mg/dL High 200 - 499 mg/dL Very High > or = 500 mg/dL Laboratory - Chemistry and C hemistry - challengeOrdered By: Leela Hamm on 09-14-2023 Albumin/Globulin [Mass ratio] 0.9 {ratio} 0.9-2.4 [facility] ALP [Catalytic activity/Vol] 79 U/L 45-117 [facility] ALT [Catalytic activity/Vol] 24 U/L 16-61 [facility] Cholesterol in HDL [Mass/Vol] 47 mg/dL >40 [facility] Comment on above: The drugs N-Acetylcy steine and Metamizole may falsely depress this assay. Reference Range HDL <40 mg/dL Low HDL Cholesterol HDL >or= 60 mg/dL High HDL Cholesterol Cholesterol in LDL [Mass/Vol] 75 mg/dL 0-130 [facility] CO2 [Moles/Vol] 27.0 mmol/L 21.0-32.0 [facility] Globulin (S) [Mass/Vol] 3.7 g/dL 2.2-4.2 [facility] Urea nitrogen/Creatinine [Mass ratio] 13.1 mg/mg 10-20 [facility] No Panel InformationOrdered By: Leela Hamm on 09-14-2023 Estimated GFR (MDRD) Amer 95 mL/min >60 [facility] Comment on above: GFR Calc Estimated GFR (MDRD) Non-Af Amer 78 mL/min >60 [facility] Comment on above: Non- GFR Calc VLDL Cholesterol 15 mg/dL 5-40 [facility] Serum or plasma calcium inga urement (mass/volume)Ordered By: Leela Hamm on 09-14-2023 Calcium [Mass/Vol] 9.6 mg/dL 8.5-10.1 [facility] Serum or plasma creatinine m easurement (mass/volume)Ordered By: Leela Hamm on 09-14-2023 Creatinine [Mass/Vol] 0.99 mg/dL 0.70-1.30 [facility] Comment on above: The validity of the calculated GFR & GFRAA in patients over 70 years has not been determined. Clinical correlation is essential. Serum or plasma urea nitroge n measurement (mass/volume)Ordered By: Leela Hamm on 09-14-2023 Urea nitrogen [Mass/Vol] 13 mg/dL 7-18 [facility] Thin prep Papanicolaou smear with manual screeningOrdered By: Leela Hamm on 09-14-2023 Thin prep Papanicolaou smear with manual screening 3.3 g/dL 3.2-5.0 [facility] Thin prep Papanicolaou smear with manual screening 20 U/L 15-37 [facility] Thin prep Papanicolaou smear with manual screening 6 5-15 [facility] Whole blood hemoglobin A1c/t otal hemoglobin ratio (mass fraction)Ordered By: Leela Hamm on 09-14-2023 HbA1c (Bld) [Mass fraction] 7.7 % 3.8-5.6 [facility] Comment on above: Normal < 5.7 % Predi abetic 5.7 - 6.4 % Diabetic >or= 6.5 % Please note range changes. Basophil percentageOrdered B y: Leela Hamm on 06-16-2023 Bilirubin [Mass/Vol] 0.40 mg/dL 0.20-1.00 [facility] Comment on above: For patients on eltr ombopag therapy, use of [place] TBIL is not recommended. Chloride [Moles/Vol] 102 mmol/L 98-107 [facility] Cholesterol [Mass/Vol] 157 mg/dL <[address] [facility] Comment on above: <200 mg/dL Desirable 200-240 mg/dL Borderline >240 mg/dL High Risk Glucose [Mass/Vol] 148 mg/dL 74-106 [facility] Comment on above: Fasting Glucose resu lt greater than or equal to 126 mg/dL suggests DIABETES MELLITUS per A.D.A. criteria. Potassium [Moles/Vol] 4.4 mmol/L 3.5-5.1 [facility] Protein [Mass/Vol] 7.0 g/dL 6.4-8.2 [facility] Sodium [Moles/Vol] 137 mmol/L 136-145 [facility] Triglyceride [Mass/Vol] 88 mg/dL <199 [facility] Comment on above: The drugs N-Acetylcy steine and Metamizole may falsely depress this assay.Serum Triglycerides Reference Interval Normal <150 mg/dL Borderline high 150 - 199 mg/dL High 200 - 499 mg/dL Very High > or = 500 mg/dL High density lipoprotein (HD L) measurementOrdered By: Leela Hamm on 06-16-2023 Cholesterol in HDL (Body fld) [Mass/Vol] 49 mg/dL >40 [facility] Comment on above: The drugs N-Acetylcy steine and Metamizole may falsely depress this assay. Reference Range HDL <40 mg/dL Low HDL Cholesterol HDL >or= 60 mg/dL High HDL Cholesterol Laboratory - Chemistry and C hemistry - challengeOrdered By: Leela Hamm on 06-16-2023 Albumin/Globulin [Mass ratio] 0.9 {ratio} 0.9-2.4 [facility] ALP [Catalytic activity/Vol] 83 U/L 45-117 [facility] ALT [Catalytic activity/Vol] 23 U/L 16-61 [facility] CO2 [Moles/Vol] 31.0 mmol/L 21.0-32.0 [facility] Globulin (S) [Mass/Vol] 3.7 g/dL 2.2-4.2 [facility] Urea nitrogen/Creatinine [Mass ratio] 12.6 mg/mg 10-20 [facility] Low density lipoprotein (LDL ) cholesterol measurementOrdered By: Leela Hamm on 06-16-2023 Cholesterol in LDL (Body fld) [Moles/Vol] 90 mg/dL 0-130 [facility] No Panel InformationOrdered By: Leela Hamm on 06-16-2023 Estimated GFR (MDRD) Amer 110 mL/min >60 [facility] Comment on above: GFR Calc Estimated GFR (MDRD) Non-Af Amer 91 mL/min >60 [facility] Comment on above: Non- GFR Calc Vitamin D 25-Hydroxy 55.2 ng/mL [facility] Comment on above: Vitamin D 25(OH) Sta tus Range Deficiency <20 ng/mL (50nmol/L) Insufficiency 20 - 30 ng/mL (50 - 75 nmol/L) Sufficiency 30 - 100 ng/mL (75 - 250 nmol/L) Toxicity >100 ng/mL (>250 nmol/L) Serum or plasma calcium inga urement (mass/volume)Ordered By: Leela Hamm on 06-16-2023 Calcium [Mass/Vol] 9.4 mg/dL 8.5-10.1 [facility] Serum or plasma creatinine m easurement (mass/volume)Ordered By: Leela Hamm on 06-16-2023 Creatinine [Mass/Vol] 0.87 mg/dL 0.70-1.30 [facility] Comment on above: The validity of the calculated GFR & GFRAA in patients over 70 years has not been determined. Clinical correlation is essential. Serum or plasma urea nitroge n measurement (mass/volume)Ordered By: Leela Hamm on 06-16-2023 Urea nitrogen [Mass/Vol] 11 mg/dL 7-18 [facility] Thin prep Papanicolaou smear with manual screeningOrdered By: Leela Hamm on 06-16-2023 Thin prep Papanicolaou smear with manual screening 3.3 g/dL 3.2-5.0 [facility] Thin prep Papanicolaou smear with manual screening 20 U/L 15-37 [facility] Thin prep Papanicolaou smear with manual screening 4 5-15 [facility] Very low density lipoprotein (VLDL) cholesterol measurementOrdered By: Leela Hamm on 06-16-2023 Cholesterol in VLDL Calc [Moles/Vol] 18 mg/dL 5-40 [facility] Whole blood hemoglobin A1c/t otal hemoglobin ratio (mass fraction)Ordered By: Leela Hamm on 06-16-2023 HbA1c (Bld) [Mass fraction] 7.4 % 3.8-5.6 [facility] Comment on above: Normal < 5.7 % Predi abetic 5.7 - 6.4 % Diabetic >or= 6.5 % Please note range changes. Albumin Elph [Mass/Vol]Order ed By: Hung Jameson on 03-18-2023 Albumin [Mass/Vol] 3.4 g/dL 2.9-4.4 [facility] Basophil percentageOrdered B y: Hung Jameson on 03-18-2023 Basophil percentage Comment . [facility] Comment on above: No monoclonality det ected.Performed at: [id number] [id number] Director: Sandeep Marks PhD, Phone: [phone] Interpretation of serum or p lasma protein pattern by immunofixation (narrative resultOrdered By: Hung Jameson on 03-18-2023 Protein Fractions Immunofixation Jax [Interp] See comment [facility] Comment on above: Result: Not Observed No Panel InformationOrdered By: Hung Jameson on 03-18-2023 Addendum Document Comment . [facility] Comment on above: Protein electrophore sis scan will follow via computer,mail, or salesforce administrator delivery. Serum enjac-0-vulremmk measu rement by electrophoresisOrdered By: Hung Jameson on 03-18-2023 Alpha 1 globulin Elph [Mass/Vol] 0.3 g/dL 0.0-0.4 [facility] Alpha 1 globulin Elph [Mass/Vol] 0.9 g/dL 0.4-1.0 [facility] Serum globulin measurement ( mass/volume)Ordered By: Hung Jameson on 03-18-2023 Globulin (S) [Mass/Vol] 3.1 g/dL 2.2-3.9 [facility] Serum or plasma IgA measurem ent (mass/volume)Ordered By: Hung Jameson on 03-18-2023 IgA [Mass/Vol] 189 mg/dL 61-437 [facility] Serum or plasma IgG measurem ent (mass/volume)Ordered By: Hung Jameson on 03-18-2023 IgG [Mass/Vol] 950 mg/dL [id number] [facility] Serum or plasma IgM measurem ent (mass/volume)Ordered By: Hung Jameson on 03-18-2023 IgM [Mass/Vol] 27 mg/dL 15-143 [facility] Serum or plasma beta globuli n measurement by electrophoresis (mass/volume)Ordered By: Hung Jameson on 03-18-2023 Beta globulin Elph [Mass/Vol] 1.1 g/dL 0.7-1.3 [facility] Serum or plasma gamma globul in measurement by electrophoresis (mass/volume)Ordered By: Hung Jameson on 03-18-2023 Gamma globulin Elph [Mass/Vol] 0.8 g/dL 0.4-1.8 [facility] Serum or plasma immunoelectr ophoresis interpretation (nominal result)Ordered By: Hung Jameson on 03-18-2023 Interpretation IEP [Interp] Comment . [facility] Comment on above: No monoclonality det ected. Thin prep Papanicolaou smear with manual screeningOrdered By: Hung Jameson on 03-18-2023 Thin prep Papanicolaou smear with manual screening 1.1 0.7-1.7 [facility] Total protein bloodOrdered B y: Hung Jameson on 03-18-2023 Protein [Mass/Vol] 6.5 g/dL 6.0-8.5 [facility] Basophil percentageOrdered B y: Leela Hamm on 03-14-2023 Bilirubin [Mass/Vol] 0.50 mg/dL 0.20-1.00 [facility] Comment on above: For patients on eltr ombopag therapy, use of [place] TBIL is not recommended. Chloride [Moles/Vol] 101 mmol/L 98-107 [facility] Cholesterol [Mass/Vol] 132 mg/dL <[address] [facility] Comment on above: <200 mg/dL Desirable 200-240 mg/dL Borderline >240 mg/dL High Risk Glucose [Mass/Vol] 225 mg/dL 74-106 [facility] Comment on above: Glucose result great er than or equal to 200 mg/dLsuggests DIABETES MELLITUS per A.D.A. criteria. Potassium [Moles/Vol] 4.2 mmol/L 3.5-5.1 [facility] Protein [Mass/Vol] 7.4 g/dL 6.4-8.2 [facility] Sodium [Moles/Vol] 135 mmol/L 136-145 [facility] Triglyceride [Mass/Vol] 84 mg/dL <199 [facility] Comment on above: The drugs N-Acetylcy steine and Metamizole may falsely depress this assay.Serum Triglycerides Reference Interval Normal <150 mg/dL Borderline high 150 - 199 mg/dL High 200 - 499 mg/dL Very High > or = 500 mg/dL Laboratory - Chemistry and C hemistry - challengeOrdered By: Leela Hansel on 03-14-2023 ALP [Catalytic activity/Vol] 83 U/L 45-117 [facility] ALT [Catalytic activity/Vol] 24 U/L 16-61 [facility] CO2 [Moles/Vol] 27.0 mmol/L 21.0-32.0 [facility] Globulin (S) [Mass/Vol] 4.1 g/dL 2.2-4.2 [facility] Urea nitrogen/Creatinine [Mass ratio] 19.1 mg/mg 10-20 [facility] No Panel InformationOrdered By: Leela Hamm on 03-14-2023 Estimated GFR (MDRD) Amer 115 mL/min >60 [facility] Comment on above: GFR Calc Estimated GFR (MDRD) Non-Af Amer 95 mL/min >60 [facility] Comment on above: Non- GFR Calc Serum or plasma albumin inga urement (mass/volume)Ordered By: Leela Hamm on 03-14-2023 Albumin [Mass/Vol] 3.3 g/dL 3.2-5.0 [facility] Serum or plasma albumin/glob ulin mass ratioOrdered By: Leela Hamm on 03-14-2023 Albumin/Globulin [Mass ratio] 0.8 {ratio} 0.9-2.4 [facility] Serum or plasma calcium inga urement (mass/volume)Ordered By: Leela Hamm on 03-14-2023 Calcium [Mass/Vol] 9.8 mg/dL 8.5-10.1 [facility] Serum or plasma cholesterol in HDL measurement (mass/volume)Ordered By: Leela Hamm on 03-14-2023 Cholesterol in HDL [Mass/Vol] 50 mg/dL >40 [facility] Comment on above: The drugs N-Acetylcy steine and Metamizole may falsely depress this assay. Reference Range HDL <40 mg/dL Low HDL Cholesterol HDL >or= 60 mg/dL High HDL Cholesterol Serum or plasma cholesterol in VLDL measurement (mass/volume)Ordered By: Leela Hamm on 03-14-2023 Cholesterol in VLDL [Mass/Vol] 17 mg/dL 5-40 [facility] Serum or plasma creatinine m easurement (mass/volume)Ordered By: Leela Hamm on 03-14-2023 Creatinine [Mass/Vol] 0.84 mg/dL 0.70-1.30 [facility] Comment on above: The validity of the calculated GFR & GFRAA in patients over 70 years has not been determined. Clinical correlation is essential. Serum or plasma low density lipoprotein (LDL) cholesterol measurement (mass/volume)Ordered By: Leela Hamm on 03-14-2023 Cholesterol in LDL [Mass/Vol] 65 mg/dL 0-130 [facility] Serum or plasma urea nitroge n measurement (mass/volume)Ordered By: Leela Hamm on 03-14-2023 Urea nitrogen [Mass/Vol] 16 mg/dL 7-18 [facility] Thin prep Papanicolaou smear with manual screeningOrdered By: Leela Hamm on 03-14-2023 Thin prep Papanicolaou smear with manual screening 17 U/L 15-37 [facility] Thin prep Papanicolaou smear with manual screening 7 5-15 [facility] Whole blood hemoglobin A1c/t otal hemoglobin ratio (mass fraction)Ordered By: Leela Hamm on 03-14-2023 HbA1c (Bld) [Mass fraction] 7.7 % 3.8-5.6 [facility] Comment on above: Normal < 5.7 % Predi abetic 5.7 - 6.4 % Diabetic >or= 6.5 % Please note range changes. Basophil percentageOrdered B y: Leelacharles Hamm on 12-07-2022 Bilirubin [Mass/Vol] 0.30 mg/dL 0.20-1.00 [facility] Comment on above: For patients on eltr ombopag therapy, use of [place] TBIL is not recommended. Chloride [Moles/Vol] 98 mmol/L 98-107 [facility] Cholesterol [Mass/Vol] 124 mg/dL <[address] [facility] Comment on above: <200 mg/dL Desirable 200-240 mg/dL Borderline >240 mg/dL High Risk Glucose [Mass/Vol] 194 mg/dL 74-106 [facility] Comment on above: Fasting Glucose resu lt greater than or equal to 126 mg/dL suggests DIABETES MELLITUS per A.D.A. criteria. Potassium [Moles/Vol] 4.1 mmol/L 3.5-5.1 [facility] Protein [Mass/Vol] 6.9 g/dL 6.4-8.2 [facility] Sodium [Moles/Vol] 132 mmol/L 136-145 [facility] Triglyceride [Mass/Vol] 59 mg/dL <199 [facility] Comment on above: The drugs N-Acetylcy steine and Metamizole may falsely depress this assay.Serum Triglycerides Reference Interval Normal <150 mg/dL Borderline high 150 - 199 mg/dL High 200 - 499 mg/dL Very High > or = 500 mg/dL Laboratory - Chemistry and C hemistry - challengeOrdered By: Leela Hamm on 12-07-2022 ALP [Catalytic activity/Vol] 83 U/L 45-117 [facility] ALT [Catalytic activity/Vol] 25 U/L 16-61 [facility] CO2 [Moles/Vol] 28.0 mmol/L 21.0-32.0 [facility] Globulin (S) [Mass/Vol] 3.8 g/dL 2.2-4.2 [facility] Urea nitrogen/Creatinine [Mass ratio] 9.3 mg/mg 10-20 [facility] No Panel InformationOrdered By: Leela Hamm on 12-07-2022 Estimated GFR (MDRD) Amer 112 mL/min >60 [facility] Comment on above: GFR Calc Estimated GFR (MDRD) Non-Af Amer 93 mL/min >60 [facility] Comment on above: Non- GFR Calc Urine Microalbumin/Creatinine Ratio 21.9 mg/g CRE <30 [facility] Serum or plasma albumin inga urement (mass/volume)Ordered By: Leela Hamm on 12-07-2022 Albumin [Mass/Vol] 3.1 g/dL 3.2-5.0 [facility] Serum or plasma albumin/glob ulin mass ratioOrdered By: Leela Hamm on 12-07-2022 Albumin/Globulin [Mass ratio] 0.8 {ratio} 0.9-2.4 [facility] Serum or plasma calcium inga urement (mass/volume)Ordered By: Leela Hamm on 12-07-2022 Calcium [Mass/Vol] 9.2 mg/dL 8.5-10.1 [facility] Serum or plasma cholesterol in HDL measurement (mass/volume)Ordered By: Leela Hamm on 12-07-2022 Cholesterol in HDL [Mass/Vol] 49 mg/dL >40 [facility] Comment on above: The drugs N-Acetylcy steine and Metamizole may falsely depress this assay. Reference Range HDL <40 mg/dL Low HDL Cholesterol HDL >or= 60 mg/dL High HDL Cholesterol Serum or plasma cholesterol in VLDL measurement (mass/volume)Ordered By: Leela Hamm on 12-07-2022 Cholesterol in VLDL [Mass/Vol] 12 mg/dL 5-40 [facility] Serum or plasma creatinine m easurement (mass/volume)Ordered By: Leela Hamm on 12-07-2022 Creatinine [Mass/Vol] 0.86 mg/dL 0.70-1.30 [facility] Comment on above: The validity of the calculated GFR & GFRAA in patients over 70 years has not been determined. Clinical correlation is essential. Serum or plasma low density lipoprotein (LDL) cholesterol measurement (mass/volume)Ordered By: Leela Hamm on 12-07-2022 Cholesterol in LDL [Mass/Vol] 63 mg/dL 0-130 [facility] Serum or plasma urea nitroge n measurement (mass/volume)Ordered By: Leela Hamm on 12-07-2022 Urea nitrogen [Mass/Vol] 8 mg/dL 7-18 [facility] Thin prep Papanicolaou smear with manual screeningOrdered By: Leela Hamm on 12-07-2022 Thin prep Papanicolaou smear with manual screening 22 U/L 15-37 [facility] Thin prep Papanicolaou smear with manual screening 6 5-15 [facility] Thin prep Papanicolaou smear with manual screening 20.8 mg/L NO RANGE EST. [facility] Urine creatinine measurement (mass/volume)Ordered By: Leela Hamm on 12-07-2022 Creatinine (U) [Mass/Vol] 95.00 mg/dL NO RANGE EST. [facility] [facility] Whole blood hemoglobin A1c/t otal hemoglobin ratio (mass fraction)Ordered By: Leela Hamm on 12-07-2022 HbA1c (Bld) [Mass fraction] 7.9 % 3.8-5.6 [facility] Comment on above: Normal < 5.7 % Predi abetic 5.7 - 6.4 % Diabetic >or= 6.5 % Please note range changes. Laboratory - Chemistry and C hemistry - challengeOrdered By: Dr. Jameson on 10-05-2022 Cobalamin (Vitamin B12) [Mass/Vol] 323 pg/mL 211-911 [facility] No Panel InformationOrdered By: Dr. Jameson on 10-05-2022 Free Lambda Light Chains, Quant 48.0 mg/L 5.7-26.3 [facility] Thyroid Stimulating Hormone (TSH) 1.36 uIU/mL 0.358-3.74 [facility] Whole Blood Vitamin B1 Level 114.2 nmol/L 66.5-200.0 [facility] Comment on above: Performed at: - Powered by [employer] [id number] Director: Sandeep Marks PhD, Phone: [phone] at: [facility] [id number] Director: Arun Nevarez MD, Phone: [phone] Serum immunoglobulin kappa l ight chains/immunoglobulin lambda light chains mass ratioOrdered By: Dr. Jameson on 10-05-2022 Immunoglobulin light chains.kappa/Immunoglobul in light chains.lambda (S) [Mass ratio] 0.43 0.26-1.65 [facility] Serum or plasma folate measu rement (mass/volume)Ordered By: Dr. Jameson on 10-05-2022 Folate [Mass/Vol] 11.00 ng/mL 3.1-55.4 [facility] Serum or plasma immunoglobul in kappa light chains measurement (mass/volume)Ordered By: Dr. Jameson on 10-05-2022 Immunoglobulin light chains.kappa [Mass/Vol] 20.6 mg/L 3.3-19.4 [facility] Basophil percentageOrdered B y: Dr. Hamm on 08-31-2022 Bilirubin [Mass/Vol] 0.30 mg/dL 0.20-1.00 [facility] Comment on above: For patients on eltr ombopag therapy, use of Dimension [place] TBIL is not recommended. Chloride [Moles/Vol] 101 mmol/L 98-107 [facility] Cholesterol [Mass/Vol] 128 mg/dL <[address] [facility] Comment on above: <200 mg/dL Desirable 200-240 mg/dL Borderline >240 mg/dL High Risk Glucose [Mass/Vol] 175 mg/dL 74-106 [facility] Comment on above: Fasting Glucose resu lt greater than or equal to 126 mg/dL suggests DIABETES MELLITUS per A.D.A. criteria. Potassium [Moles/Vol] 4.4 mmol/L 3.5-5.1 [facility] Protein [Mass/Vol] 7.4 g/dL 6.4-8.2 [facility] Sodium [Moles/Vol] 133 mmol/L 136-145 [facility] Triglyceride [Mass/Vol] 61 mg/dL <199 [facility] Comment on above: The drugs N-Acetylcy steine and Metamizole may falsely depress this assay.Serum Triglycerides Reference Interval Normal <150 mg/dL Borderline high 150 - 199 mg/dL High 200 - 499 mg/dL Very High > or = 500 mg/dL Laboratory - Chemistry and C hemistry - challengeOrdered By: Dr. Hamm on 08-31-2022 ALP [Catalytic activity/Vol] 101 U/L 45-117 [facility] ALT [Catalytic activity/Vol] 25 U/L 16-61 [facility] CO2 [Moles/Vol] 28.0 mmol/L 21.0-32.0 [facility] Globulin (S) [Mass/Vol] 4.0 g/dL 2.2-4.2 [facility] Urea nitrogen/Creatinine [Mass ratio] 15.9 mg/mg 10-20 [facility] No Panel InformationOrdered By: Dr. Hamm on 08-31-2022 Estimated GFR (MDRD) Amer 109 mL/min >60 [facility] Comment on above: GFR Calc Estimated GFR (MDRD) Non-Af Amer 90 mL/min >60 [facility] Comment on above: Non- GFR Calc Serum or plasma albumin inga urement (mass/volume)Ordered By: Dr. Hamm on 08-31-2022 Albumin [Mass/Vol] 3.4 g/dL 3.2-5.0 [facility] Serum or plasma albumin/glob ulin mass ratioOrdered By: Dr. Hamm on 08-31-2022 Albumin/Globulin [Mass ratio] 0.8 {ratio} 0.9-2.4 [facility] Serum or plasma calcium inga urement (mass/volume)Ordered By: Dr. Hamm on 08-31-2022 Calcium [Mass/Vol] 9.2 mg/dL 8.5-10.1 [facility] Serum or plasma cholesterol in HDL measurement (mass/volume)Ordered By: Dr. Hamm on 08-31-2022 Cholesterol in HDL [Mass/Vol] 52 mg/dL >40 [facility] Comment on above: The drugs N-Acetylcy steine and Metamizole may falsely depress this assay. Reference Range HDL <40 mg/dL Low HDL Cholesterol HDL >or= 60 mg/dL High HDL Cholesterol Serum or plasma cholesterol in VLDL measurement (mass/volume)Ordered By: Dr. Hamm on 08-31-2022 Cholesterol in VLDL [Mass/Vol] 12 mg/dL 5-40 [facility] Serum or plasma creatinine m easurement (mass/volume)Ordered By: Dr. Hamm on 08-31-2022 Creatinine [Mass/Vol] 0.88 mg/dL 0.70-1.30 [facility] Comment on above: The validity of the calculated GFR & GFRAA in patients over 70 years has not been determined. Clinical correlation is essential. Serum or plasma low density lipoprotein (LDL) cholesterol measurement (mass/volume)Ordered By: Dr. Hamm on 08-31-2022 Cholesterol in LDL [Mass/Vol] 64 mg/dL 0-130 [facility] Serum or plasma urea nitroge n measurement (mass/volume)Ordered By: Dr. Hamm on 08-31-2022 Urea nitrogen [Mass/Vol] 14 mg/dL 7-18 [facility] Thin prep Papanicolaou smear with manual screeningOrdered By: Dr. Hamm on 08-31-2022 Thin prep Papanicolaou smear with manual screening 19 U/L 15-37 [facility] Thin prep Papanicolaou smear with manual screening 4 5-15 [facility] Whole blood hemoglobin A1c/t otal hemoglobin ratio (mass fraction)Ordered By: Dr. Hamm on 08-31-2022 HbA1c (Bld) [Mass fraction] 7.7 % 3.8-5.6 [facility] Comment on above: Normal < 5.7 % Predi abetic 5.7 - 6.4 % Diabetic >or= 6.5 % Please note range changes. Basophil percentageon 2021 Bilirubin [Mass/Vol] 0.60 mg/dL 0.20-1.00 [facility] Comment on above: For patients on eltr ombopag therapy, use of Dimension [place] TBIL is not recommended. Chloride [Moles/Vol] 97 mmol/L 98-107 [facility] Cholesterol [Mass/Vol] 133 mg/dL <[address] [facility] Comment on above: <200 mg/dL Desirable 200-240 mg/dL Borderline >240 mg/dL High Risk Glucose [Mass/Vol] 205 mg/dL 74-106 [facility] Comment on above: Glucose result great er than or equal to 200 mg/dLsuggests DIABETES MELLITUS per A.D.A. criteria. Potassium [Moles/Vol] 4.6 mmol/L 3.5-5.1 [facility] Protein [Mass/Vol] 6.5 g/dL 6.4-8.2 [facility] Sodium [Moles/Vol] 134 mmol/L 136-145 [facility] Triglyceride [Mass/Vol] 77 mg/dL <199 [facility] Comment on above: The drugs N-Acetylcy steine and Metamizole may falsely depress this assay.Serum Triglycerides Reference Interval Normal <150 mg/dL Borderline high 150 - 199 mg/dL High 200 - 499 mg/dL Very High > or = 500 mg/dL Laboratory - Chemistry and C hemistry - challengeon 05-27-2022 ALP [Catalytic activity/Vol] 89 U/L 45-117 [facility] ALT [Catalytic activity/Vol] 19 U/L 16-61 [facility] CO2 [Moles/Vol] 30.0 mmol/L 21.0-32.0 [facility] Globulin (S) [Mass/Vol] 3.4 g/dL 2.2-4.2 [facility] Urea nitrogen/Creatinine [Mass ratio] 12.5 mg/mg 10-20 [facility] No Panel Informationon 05-27 Estimated GFR (MDRD) Amer 121 mL/min >60 [facility] Comment on above: GFR Calc Estimated GFR (MDRD) Non-Af Amer 100 mL/min >60 [facility] Comment on above: Non- GFR Calc Serum or plasma albumin inga urement (mass/volume)on 05-27-2022 Albumin [Mass/Vol] 3.1 g/dL 3.2-5.0 [facility] Serum or plasma albumin/glob ulin mass ratioon 05-27-2022 Albumin/Globulin [Mass ratio] 0.9 {ratio} 0.9-2.4 [facility] Serum or plasma calcium inga urement (mass/volume)on 05-27-2022 Calcium [Mass/Vol] 9.1 mg/dL 8.5-10.1 [facility] Serum or plasma cholesterol in HDL measurement (mass/volume)on 05-27-2022 Cholesterol in HDL [Mass/Vol] 51 mg/dL >40 [facility] Comment on above: The drugs N-Acetylcy steine and Metamizole may falsely depress this assay. Reference Range HDL <40 mg/dL Low HDL Cholesterol HDL >or= 60 mg/dL High HDL Cholesterol Serum or plasma cholesterol in VLDL measurement (mass/volume)on 05-27-2022 Cholesterol in VLDL [Mass/Vol] 15 mg/dL 5-40 [facility] Serum or plasma creatinine m easurement (mass/volume)on 05-27-2022 Creatinine [Mass/Vol] 0.80 mg/dL 0.70-1.30 [facility] Comment on above: The validity of the calculated GFR & GFRAA in patients over 70 years has not been determined. Clinical correlation is essential. Serum or plasma low density lipoprotein (LDL) cholesterol measurement (mass/volume)on 05-27-2022 Cholesterol in LDL [Mass/Vol] 67 mg/dL 0-130 [facility] Serum or plasma urea nitroge n measurement (mass/volume)on 05-27-2022 Urea nitrogen [Mass/Vol] 10 mg/dL 7-18 [facility] Thin prep Papanicolaou smear with manual screeningon 05-27-2022 Thin prep Papanicolaou smear with manual screening 13 U/L 15-37 [facility] Thin prep Papanicolaou smear with manual screening 7 5-15 [facility] Whole blood hemoglobin A1c/t otal hemoglobin ratio (mass fraction)on 05-27-2022 HbA1c (Bld) [Mass fraction] 7.5 % 3.8-5.6 [facility] Comment on above: Normal < 5.7 % Predi abetic 5.7 - 6.4 % Diabetic >or= 6.5 % Please note range changes. .GFRon 05-08-2022 GFR 95 ml/min/1.73sqm Normal [facility] ([place]) Comment on above: Result Comment: GFR Population mean for , Non- Americans Ages 20-29 = 116 mL/min/1.73 sq.m. Ages 30-39 = 107 mL/min/1.73 sq.m. Ages 40-49 = 99 mL/min/1.73 sq.m. Ages 50-59 = 93 mL/min/1.73 sq.m. Ages 60-69 = 85 mL/min/1.73 sq.m. Ages 70+ = 75 mL/min/1.73 sq.m. Chronic Kidney Disease: Less than 60 mL/min/1.73 square meters End Stage Renal Disease: Less than 15 mL/min/1.73 square meters Performed By: #### P BNP, TROPHS, BMP, GFR #### [address] [address] GFR Non- 79 ml/min/1.73sqm Normal [facility] ([place]) Comment on above: Result Comment: GFR Population mean for , Non- Americans Ages 20-29 = 116 mL/min/1.73 sq.m. Ages 30-39 = 107 mL/min/1.73 sq.m. Ages 40-49 = 99 mL/min/1.73 sq.m. Ages 50-59 = 93 mL/min/1.73 sq.m. Ages 60-69 = 85 mL/min/1.73 sq.m. Ages 70+ = 75 mL/min/1.73 sq.m. Chronic Kidney Disease: Less than 60 mL/min/1.73 square meters End Stage Renal Disease: Less than 15 mL/min/1.73 square meters Performed By: #### P BNP, TROPHS, BMP, GFR #### [address] [address] .MDWon 05-08-2022 Monocyte Distribution Width 20.14 High 0.00-20.00 [facility] ([place]) Comment on above: Result Comment: For adults in ED, MDW>20.0 may be associated with a higher risk of sepsis during the first 12hrs of hospital admission Performed By: #### P BNP, TROPHS, BMP, GFR #### [address] [address] .Manual Diffon 05-08-2022 Atypical Lymphs 6.0 % High 0.0-5.0 [facility] ([place]) Comment on above: Performed By: #### P BNP, TROPHS, BMP, GFR #### [address] [address] Bands 1.0 % Normal 0.0-5.0 [facility] ([place]) Comment on above: Performed By: #### P BNP, TROPHS, BMP, GFR #### [address] [address] Basophil %, Manual 0.0 % Normal 0.0-2.5 [facility] ([place]) Comment on above: Performed By: #### P BNP, TROPHS, BMP, GFR #### [address] [address] Basophil, Abs Manual 0.0 10 3/mcL Normal 0.0-0.2 [facility] ([place]) Comment on above: Performed By: #### P BNP, TROPHS, BMP, GFR #### [address] [address] Eosinophil %, Manual 1.0 % Normal 0.0-7.0 [facility] ([place]) Comment on above: Performed By: #### P BNP, TROPHS, BMP, GFR #### [address] [address] Eosinophil, Abs Manual 0.1 10 3/mcL Normal 0.0-0.4 [facility] ([place]) Comment on above: Performed By: #### P BNP, TROPHS, BMP, GFR #### [address] [address] Lymphocyte %, Manual 14.0 % Normal 10.0-50.0 [facility] ([place]) Comment on above: Performed By: #### P BNP, TROPHS, BMP, GFR #### [address] [address] Lymphocyte, Abs Manual 0.8 10 3/mcL Normal 0.8-3.9 [facility] ([place]) Comment on above: Performed By: #### P BNP, TROPHS, BMP, GFR #### [address] [address] Monocyte %, Manual 19.0 % High 1.7-13.0 [facility] ([place]) Comment on above: Performed By: #### P BNP, TROPHS, BMP, GFR #### [address] [address] Monocyte, Abs Manual 1.1 10 3/mcL High 0.2-1.0 [facility] ([place]) Comment on above: Performed By: #### P BNP, TROPHS, BMP, GFR #### [address] [address] Neutrophil %, Manual 59.0 % Normal 37.0-80.0 [facility] ([place]) Comment on above: Performed By: #### P BNP, TROPHS, BMP, GFR #### [address] [address] Neutrophil, Abs Manual 3.5 10 3/mcL Normal 2.9-6.2 [facility] ([place]) Comment on above: Performed By: #### P BNP, TROPHS, BMP, GFR #### [address] [address] Nucleated RBC 0.0 /100 WBC Normal [facility] ([place]) Comment on above: Performed By: #### P BNP, TROPHS, BMP, GFR #### [address] [address] .Morphon 05-08-2022 Platelet Estimate Normal Normal [facility]) Comment on above: Performed By: #### P BNP, TROPHS, BMP, GFR #### [address] [address] BMPon 05-08-2022 BUN/Creatinine Ratio 11 ratio Normal 7-27 [facility] ([place]) Comment on above: Performed By: #### P BNP, TROPHS, BMP, GFR #### [address] [address] Calcium [Mass/Vol] 9.2 mg/dL Normal 8.4-10.2 [facility] ([place] Comment on above: Performed By: #### P BNP, TROPHS, BMP, GFR #### [address] [address] Chloride [Moles/Vol] 96 mmol/L Low 98-107 [facility] ([place] Comment on above: Performed By: #### P BNP, TROPHS, BMP, GFR #### [address] [address] CO2 [Moles/Vol] 30 mmol/L Normal 23-31 [facility] ([place] Comment on above: Performed By: #### P BNP, TROPHS, BMP, GFR #### [address] [address] Creatinine [Mass/Vol] 0.94 mg/dL Normal 0.70-1.30 [facility] ([place]) Comment on above: Performed By: #### P BNP, TROPHS, BMP, GFR #### [address] [address] Electrolyte Balance 8.0 mEq/L Normal 4.0-15.0 [facility] ([place]) Comment on above: Performed By: #### P BNP, TROPHS, BMP, GFR #### [address] [address] Glucose [Mass/Vol] 139 mg/dL High 83-110 [facility] ([place] Comment on above: Performed By: #### P BNP, TROPHS, BMP, GFR #### [address] [address] Potassium [Moles/Vol] 4.0 mmol/L Normal 3.5-5.1 [facility] ([place]) Comment on above: Performed By: #### P BNP, TROPHS, BMP, GFR #### [address] [address] Sodium [Moles/Vol] 134 mmol/L Low 136-145 [facility] ([place] Comment on above: Performed By: #### P BNP, TROPHS, BMP, GFR #### [place] [id number] Urea nitrogen [Mass/Vol] 10 mg/dL Normal 7-18 [facility] ([place] Comment on above: Performed By: #### P BNP, TROPHS, BMP, GFR #### [place] [id number] CBCon 05-08-2022 Erythrocyte distribution width (RBC) [Ratio] 13.8 % Normal 11.5-14.5 [facility] ([place] Comment on above: Performed By: #### P BNP, TROPHS, BMP, GFR #### [place] [address] Hematocrit (Bld) [Volume fraction] 40.0 % Low 42.0-52.0 [facility] ([place] Comment on above: Performed By: #### P BNP, TROPHS, BMP, GFR #### [place] [address] Hgb 13.8 G/dL Low 14.0-18.0 [facility] ([place] Comment on above: Performed By: #### P BNP, TROPHS, BMP, GFR #### [place] [address] MCH (RBC) [Entitic mass] 29.8 pg Normal 27.0-31.2 [facility] ([place] Comment on above: Performed By: #### P BNP, TROPHS, BMP, GFR #### [place] [address] MCHC 34.4 G/dL Normal 31.8-35.4 [facility] ([place] Comment on above: Performed By: #### P BNP, TROPHS, BMP, GFR #### [address] [address] MCV (RBC) [Entitic vol] 86.6 fL Normal 80.0-94.0 A Count includes the [facility] ([place]) Comment on above: Performed By: #### P BNP, TROPHS, BMP, GFR #### [address] [address] Platelet 249 10 3/mcL Normal 130-400 [facility] ([place] Comment on above: Performed By: #### P BNP, TROPHS, BMP, GFR #### [address] [address] Platelet mean volume (Bld) [Entitic vol] 7.7 fL Normal 7.4-10.4 [facility] ([place] Comment on above: Performed By: #### P BNP, TROPHS, BMP, GFR #### [address] [address] RBC 4.62 10 6/mcL Normal 4.04-6.13 [facility] ([place] Comment on above: Performed By: #### P BNP, TROPHS, BMP, GFR #### [address] [address] WBC 5.9 10 3/mcL Normal 4.6-10.8 [facility] ([place] Comment on above: Performed By: #### P BNP, TROPHS, BMP, GFR #### [address] [address] [id number] 05-08-2022 SARS-CoV-2 (COVID-19) RNA KHOA+probe Ql (Unsp spec) Negative Normal Negative [facility] ([place] Comment on above: Performed By: #### P BNP, TROPHS, BMP, GFR #### [address] [address] SARS-CoV-2 (COVID-19) RNA KHOA+probe Ql (Unsp spec) Normal [facility] ([place] Comment on above: Result Comment: Nega tive results do not preclude SARS-CoV-2 infection and should not be used as the sole basis for patient management decisions. Negative results must be combined with clinical observations, patient history, and epidemiological information. There is a risk of false negative values resulting from improperly collected, transported, or handled specimens. There is a risk of false negative values due to the presence of sequence variants in the pathogen targets of the assay, procedural errors, amplification inhibitors in specimens, or inadequate numbers of organisms for amplification. E[employer] SARS-CoV-2 Assay is a Real-Time reverse-transcriptase polymerase chain reaction (RT-PCR) based qualitative in vitro diagnostic test intended for the qualitative detection of nucleic acid from the SARS-CoV-2 in nasopharyngeal swab specimens collected from individuals suspected of COVID-19 by their healthcare provider. Testing is limited to laboratories certified under the Clinical Laboratory Improvement Amendments of 1988 (CLIA), 42 U.S.C. ?263a, to perform moderate and high complexity tests. COVID-19 Int Performed By: #### P BNP, TROPHS, BMP, GFR #### [address] [address] FLURSVon 05-08-2022 Flu A PCR (AO) Positive Abnormal Negative [facility] ([place]) Comment on above: Result Comment: Posi tive Results: Positive Flu A/B or RSV for by PCR. Positive test results do not rule out bacterial infection or co-infection with other pathogens. Test results should be interpreted in conjunction with other laboratory and clinical data. Negative Results: Negative for by PCR. Negative test results do not preclude influenza virus or RSV infection and should not be used as the sole basis for diagnosis, treatment, or other management decisions. There is a risk of false negative RSV results when at low concentration and in the presence of co-infection with high concentration of influenza A. Invalid Results: An Invalid result (INV) was obtained. The test was repeated with similar results. REPEAT COLLECTION AND TESTING IS RECOMMENDED. The [employer] Flu A/B & RSV Assay is a real-time polymerase chain reaction (PCR) based qualitative in vitro diagnostic test for the direct detection and differentiation of influenza A virus, influenza B virus, and respiratory syncytial virus (RSV) nucleic acid in nasopharyngeal swab (STAYING MACHINE OPERATOR) specimens from patients with signs and symptoms of respiratory infection in conjunction with clinical and laboratory findings. The test is intended for use as an aid in the differential diagnosis of influenza A virus, influenza B virus, and RSV in humans and is not intended to detect influenza C. Performed By: #### F LURSV, [id number] #### [place] [id number] [place], [place] [address] Flu B PCR (AO) Negative Normal Negative [facility] ([place]) Comment on above: Result Comment: Posi tive Results: Positive Flu A/B or RSV for by PCR. Positive test results do not rule out bacterial infection or co-infection with other pathogens. Test results should be interpreted in conjunction with other laboratory and clinical data. Negative Results: Negative for by PCR. Negative test results do not preclude influenza virus or RSV infection and should not be used as the sole basis for diagnosis, treatment, or other management decisions. There is a risk of false negative RSV results when at low concentration and in the presence of co-infection with high concentration of influenza A. Invalid Results: An Invalid result (INV) was obtained. The test was repeated with similar results. REPEAT COLLECTION AND TESTING IS RECOMMENDED. The [employer] Flu A/B & RSV Assay is a real-time polymerase chain reaction (PCR) based qualitative in vitro diagnostic test for the direct detection and differentiation of influenza A virus, influenza B virus, and respiratory syncytial virus (RSV) nucleic acid in nasopharyngeal swab (STAYING MACHINE OPERATOR) specimens from patients with signs and symptoms of respiratory infection in conjunction with clinical and laboratory findings. The test is intended for use as an aid in the differential diagnosis of influenza A virus, influenza B virus, and RSV in humans and is not intended to detect influenza C. Performed By: #### F LURSV, [id number] #### [place] [id number] [place], [place] [address] RSV PCR (AO) Negative Normal Negative [facility] ([place]) Comment on above: Result Comment: Posi tive Results: Positive Flu A/B or RSV for by PCR. Positive test results do not rule out bacterial infection or co-infection with other pathogens. Test results should be interpreted in conjunction with other laboratory and clinical data. Negative Results: Negative for by PCR. Negative test results do not preclude influenza virus or RSV infection and should not be used as the sole basis for diagnosis, treatment, or other management decisions. There is a risk of false negative RSV results when at low concentration and in the presence of co-infection with high concentration of influenza A. Invalid Results: An Invalid result (INV) was obtained. The test was repeated with similar results. REPEAT COLLECTION AND TESTING IS RECOMMENDED. The [employer] Flu A/B & RSV Assay is a real-time polymerase chain reaction (PCR) based qualitative in vitro diagnostic test for the direct detection and differentiation of influenza A virus, influenza B virus, and respiratory syncytial virus (RSV) nucleic acid in nasopharyngeal swab (STAYING MACHINE OPERATOR) specimens from patients with signs and symptoms of respiratory infection in conjunction with clinical and laboratory findings. The test is intended for use as an aid in the differential diagnosis of influenza A virus, influenza B virus, and RSV in humans and is not intended to detect influenza C. Performed By: #### F LURSLupillo, [id number] #### [place] [address] LABORATORYOrdered By: Kelsie Bay on 05-08-2022 Bands 1.0 1 Invalid Interpretation Code 0.0 - 5.0 % AO Workflow SS Basophil %, Manual 0.0 1 Invalid Interpretation Code 0.0 - 2.5 % AO Workflow SS Basophil, Abs Manual 0.0 103/mcL Invalid Interpretation Code 0.0 - 0.2 10^3/mcL AO Workflow SS Calcium [Mass/Vol] 9.2 mg/dL Invalid Interpretation Code 8.4 - 10.2 mg/dL AO ADM SS Chloride [Moles/Vol] 96 mmol/L Invalid Interpretation Code 98 - 107 mmol/L AO ADM SS CO2 [Moles/Vol] 30 mmol/L Invalid Interpretation Code 23 - 31 mmol/L AO ADM SS Creatinine [Mass/Vol] 0.94 mg/dL Invalid Interpretation Code 0.70 - 1.30 mg/dL AO ADM SS Electrolyte Balance 8.0 mEq/L Invalid Interpretation Code 4.0 - 15.0 mEq/L AO ADM SS Eosinophil %, Manual 1.0 1 Invalid Interpretation Code 0.0 - 7.0 % AO Workflow SS Eosinophils (Bld) [#/Vol] 0.1 103/mcL Invali d Interpretation Code 0.0 - 0.4 10^3/mcL AO Workflow SS Erythrocyte distribution width (RBC) [Ratio] 13.8 % Invalid Interpretation Code 11.5 - 14.5 % AO Workflow SS Glucose [Mass/Vol] 139 mg/dL Invalid Interpretation Code 83 - 110 mg/dL AO ADM SS Hematocrit (Bld) [Volume fraction] 40.0 % Invalid Interpretation Code 42.0 - 52.0 % AO Workflow SS Hemoglobin (Bld) [Mass/Vol] 13.8 G/dL Invalid Interpretation Code 14.0 - 18.0 G/dL AO Workflow SS Lymphocyte %, Manual 14.0 1 Invalid Interpretation Code 10.0 - 50.0 % AO Workflow SS Lymphocyte, Abs Manual 0.8 103/mcL Invalid Interpretation Code 0.8 - 3.9 10^3/mcL AO Workflow SS MCH (RBC) [Entitic mass] 29.8 pg Invalid Interpretation Code 27.0 - 31.2 pg AO Workflow SS MCHC 34.4 G/dL Invalid Interpretation Code 31.8 - 35.4 G/dL AO Workflow SS MCV (RBC) [Entitic vol] 86.6 fL Invalid Interpretation Code 80.0 - 94.0 fL AO Workflow SS Monocyte %, Manual 19.0 1 Invalid Interpretation Code 1.7 - 13.0 % AO Workflow SS Monocyte distribution width Auto (Bld) [Entitic vol] 20.14 Invalid Interpretation Code 0.00 - 20.00 AO Workflow SS Comment on above: Result Comment: For adults in ED, MDW>20.0 may be associated with a higher risk of sepsis during the first 12hrs of hospital admission Monocyte, Abs Manual 1.1 103/mcL Invalid Interpretation Code 0.2 - 1.0 10^3/mcL AO Workflow SS Natriuretic peptide.B prohormone N-Terminal [Mass/Vol] 183 pg/mL Invalid Interpretation Code 0 - 125 pg/mL AO ADM SS Neutrophil %, Manual 59.0 1 Invalid Interpretation Code 37.0 - 80.0 % AO Workflow SS Neutrophil, Abs Manual 3.5 103/mcL Invalid Interpretation Code 2.9 - 6.2 10^3/mcL AO Workflow SS Nucleated RBC 0.0 /100 WBC Invalid Interpretation Code AO Workflow SS Platelet Estimate Normal *NA* (05/08/22 12:49 PM) Invalid Interpretation Code AO Workflow SS Platelet mean volume (Bld) [Entitic vol] 7.7 fL Invalid Interpretation Code 7.4 - 10.4 fL AO Workflow SS Platelets (Bld) [#/Vol] 249 103/mcL Invalid Interpretation Code 130 - 400 10^3/mcL AO Workflow SS Potassium [Moles/Vol] 4.0 mmol/L Invalid Interpretation Code 3.5 - 5.1 mmol/L AO ADM SS RBC (Bld) [#/Vol] 4.62 106/mcL Invalid Interpretation Code 4.04 - 6.13 10^6/mcL AO Workflow SS Sodium [Moles/Vol] 134 mmol/L Invalid Interpretation Code 136 - 145 mmol/L AO ADM SS Troponin I.cardiac DL <= 0.01 ng/mL [Mass/Vol] 15.7 ng/L Invalid Interpretation Code 0.0 - 76.2 ng/L AO ADM SS Urea nitrogen [Mass/Vol] 10 mg/dL Invalid Interpretation Code 7 - 18 mg/dL AO ADM SS Urea nitrogen/Creatinine [Mass ratio] 11 ratio Invalid Interpretation Code 7 - 27 ratio AO ADM SS Variant lymphocytes/100 WBC (Bld) 6.0 % Invalid Interpretation Code 0.0 - 5.0 % AO Workflow SS WBC (Bld) [#/Vol] 5.9 103/mcL Invalid Interpretation Code 4.6 - 10.8 10^3/mcL AO Workflow SS FLUAV RNA KHOA+probe Ql (Upper resp) Positive *ABN* (05/08/22 11:24 AM) Invalid Interpretation Code Negative AO Auto Urine SS FLUBV RNA KHOA+probe Ql (Upper resp) Negative (05/08/22 11:24 AM) Invalid Interpretation Code Negative AO Auto Urine SS RSV RNA KHOA+probe Ql (Upper resp) Negative (05/08/22 11:24 AM) Invalid Interpretation Code Negative AO Auto Urine SS SARS-CoV-2 (COVID-19) RNA KHOA+probe Ql (Resp) Negative results do not preclude SARS-CoV-2 infection and should not be used as the sole basis for patient management decisions. Negative results must be combined with clinical observations, patient history, and epidemiological information.There is a risk of false negative values resulting from improperly collected, transported, or handled specimens.There is a risk of false negative values due to the presence of sequence variants in the pathogen targets of the assay, procedural errors, amplification inhibitors in specimens, or inadequate numbers of organisms for amplification.ETIENNE SARS-CoV-2 Assay is a Real-Time reverse-transcriptas e polymerase chain reaction (RT-PCR) based qualitative in vitro diagnostic test intended for the qualitative detection of nucleic acid from the SARS-CoV-2 in nasopharyngeal swab specimens collected from individuals suspected of COVID-19 by their healthcare provider. Testing is limited to laboratories certified under the Clinical Laboratory Improvement Amendments of 1988 (CLIA), 42 U.S.C. 263a, to perform moderate and high complexity tests. Invalid Interpretation Code AO Auto Urine SS LABORATORYOrdered By: SYSTEM SYSTEM on 05-08-2022 GFR 95 ml/min/1.73sqm Invalid Interpretation Code AO Chemistry S GFR Non- 79 ml/min/1.73sqm Inval id Interpretation Code AO Chemistry S PBNPon 05-08-2022 Natriuretic peptide B (Bld) [Mass/Vol] 183 pg/mL High 0-125 [facility] ([place]) Comment on above: Result Comment: NT-p roBNP results of less than 300 pg/mL effectively rules out acute congestive heart failure with 99% negative predictive value. Performed By: #### P BNP, TROPHS, BMP, GFR #### [address] [address] TROPHSon 05-08-2022 Troponin I High Sensitivity 15.7 ng/L Normal 0.0-76.2 [facility] ([place]) Comment on above: Performed By: #### P BNP, TROPHS, BMP, GFR #### [address] [address] XR CHEST 2 VIEWSon 2 XR CHEST 2 VIEWS ORIGINAL EXAMINATION: TWO XRAY VIEWS OF THE [...] opacities. CHF as well as a developing infectious/inflammat ory process are considered. Interpreted by: Francisco Bowen MD Preliminary Report By: Francisco Bowen MD Electronically signed By Francisco Bowen MD Dictated Date: 05/08/2022 12:15:56 PM Prelim Date: 05/08/2022 12:17:12 PM Sign Date: 05/08/2022 12:17:12 PM Ordering Provider: ROXANNA Pham [facility] ([place]) Basophil percentageon 2021 Bilirubin [Mass/Vol] 0.60 mg/dL 0.20-1.00 [facility] Work Phone: Comment on above: For patients on eltr ombopag therapy, use of Dimension [place] TBIL is not recommended. Chloride [Moles/Vol] 101 mmol/L 98-107 [facility] Work Phone: Cholesterol [Mass/Vol] 130 mg/dL <200 [facility] Work Phone: Comment on above: <200 mg/dL Desirable 200-240 mg/dL Borderline >240 mg/dL High Risk Glucose [Mass/Vol] 121 mg/dL 74-106 [facility] Work Phone: Comment on above: Fasting Glucose resu lt from 100 to 125 mg/dL suggests IMPAIRED HOMEOSTASIS per A.D.A. criteria. Potassium [Moles/Vol] 4.6 mmol/L 3.5-5.1 [facility] Work Phone: Protein [Mass/Vol] 7.2 g/dL 6.4-8.2 [facility] Work Phone: Sodium [Moles/Vol] 138 mmol/L 136-145 [facility] Work Phone: [phone] Triglyceride [Mass/Vol] 47 mg/dL <199 [facility] Work Phone: Comment on above: The drugs N-Acetylcy steine and Metamizole may falsely depress this assay.Serum Triglycerides Reference Interval Normal <150 mg/dL Borderline high 150 - 199 mg/dL High 200 - 499 mg/dL Very High > or = 500 mg/dL Laboratory - Chemistry and C hemistry - challengeon 02-25-2022 ALP [Catalytic activity/Vol] 85 U/L 45-117 [facility] Work Phone: [phone] ALT [Catalytic activity/Vol] 20 U/L 16-61 [facility] Work Phone: [phone] CO2 [Moles/Vol] 29.0 mmol/L 21.0-32.0 [facility] Work Phone: [phone] Globulin (S) [Mass/Vol] 3.8 g/dL 2.2-4.2 [facility] Work Phone: Urea nitrogen/Creatinine [Mass ratio] 15.0 mg/mg 10-20 [facility] Work Phone: No Panel Informationon 02-25 Estimated GFR (MDRD) Amer 122 mL/min >60 [facility] Work Phone: Comment on above: GFR Calc Estimated GFR (MDRD) Non-Af Amer 101 mL/min >60 [facility] Work Phone: Comment on above: Non- GFR Calc Vitamin D 25-Hydroxy 60.1 ng/mL [facility] Work Phone: Comment on above: Vitamin D 25(OH) Sta tus Range Deficiency <20 ng/mL (50nmol/L) Insufficiency 20 - 30 ng/mL (50 - 75 nmol/L) Sufficiency 30 - 100 ng/mL (75 - 250 nmol/L) Toxicity >100 ng/mL (>250 nmol/L) Serum or plasma albumin inga urement (mass/volume)on 02-25-2022 Albumin [Mass/Vol] 3.4 g/dL 3.2-5.0 [facility] Work Phone: [phone] Serum or plasma albumin/glob ulin mass ratioon 02-25-2022 Albumin/Globulin [Mass ratio] 0.9 {ratio} 0.9-2.4 [facility] Work Phone: [phone] Serum or plasma calcium inga urement (mass/volume)on 02-25-2022 Calcium [Mass/Vol] 9.8 mg/dL 8.5-10.1 [facility] Work Phone: Serum or plasma cholesterol in HDL measurement (mass/volume)on 02-25-2022 Cholesterol in HDL [Mass/Vol] 55 mg/dL >40 [facility] Work Phone: Comment on above: The drugs N-Acetylcy steine and Metamizole may falsely depress this assay. Reference Range HDL <40 mg/dL Low HDL Cholesterol HDL >or= 60 mg/dL High HDL Cholesterol Serum or plasma cholesterol in VLDL measurement (mass/volume)on 02-25-2022 Cholesterol in VLDL [Mass/Vol] 9 mg/dL 5-40 [facility] Work Phone: Serum or plasma creatinine m easurement (mass/volume)on 02-25-2022 Creatinine [Mass/Vol] 0.80 mg/dL 0.70-1.30 [facility] Work Phone: Comment on above: The validity of the calculated GFR & GFRAA in patients over 70 years has not been determined. Clinical correlation is essential. Serum or plasma low density lipoprotein (LDL) cholesterol measurement (mass/volume)on 02-25-2022 Cholesterol in LDL [Mass/Vol] 66 mg/dL 0-130 [facility] Work Phone: Serum or plasma urea nitroge n measurement (mass/volume)on 02-25-2022 Urea nitrogen [Mass/Vol] 12 mg/dL 7-18 [facility] Work Phone: Thin prep Papanicolaou smear with manual screeningon 02-25-2022 Thin prep Papanicolaou smear with manual screening 16 U/L 15-37 [facility] Work Phone: Thin prep Papanicolaou smear with manual screening 8 5-15 [facility] Work Phone: Thin prep Papanicolaou smear with manual screening 22.2 mg/L NO RANGE EST. [facility] Work Phone: Whole blood hemoglobin A1c/t otal hemoglobin ratio (mass fraction)on 02-25-2022 HbA1c (Bld) [Mass fraction] 7.2 % 3.8-5.6 [facility] Work Phone: Comment on above: Normal < 5.7 % Predi abetic 5.7 - 6.4 % Diabetic >or= 6.5 % Please note range changes. Basophil percentageon 2021 Bilirubin [Mass/Vol] 0.40 mg/dL 0.20-1.00 [facility] Work Phone: Comment on above: For patients on eltr ombopag therapy, use of Dimension [place] TBIL is not recommended. Chloride [Moles/Vol] 99 mmol/L 98-107 [facility] Work Phone: [phone] Cholesterol [Mass/Vol] 125 mg/dL <200 [facility] Work Phone: [phone] Comment on above: <200 mg/dL Desirable 200-240 mg/dL Borderline >240 mg/dL High Risk Glucose [Mass/Vol] 163 mg/dL 74-106 [facility] Work Phone: [phone] Comment on above: Fasting Glucose resu lt greater than or equal to 126 mg/dL suggests DIABETES MELLITUS per A.D.A. criteria. Potassium [Moles/Vol] 4.3 mmol/L 3.5-5.1 [facility] Work Phone: [phone] Protein [Mass/Vol] 7.5 g/dL 6.4-8.2 [facility] Work Phone: [phone] Sodium [Moles/Vol] 135 mmol/L 136-145 [facility] Work Phone: [phone] Triglyceride [Mass/Vol] 57 mg/dL <199 [facility] Work Phone: [phone] Comment on above: The drugs N-Acetylcy steine and Metamizole may falsely depress this assay.Serum Triglycerides Reference Interval Normal <150 mg/dL Borderline high 150 - 199 mg/dL High 200 - 499 mg/dL Very High > or = 500 mg/dL Laboratory - Chemistry and C hemistry - challengeon 10-22-2021 ALP [Catalytic activity/Vol] 86 U/L 45-117 [facility] Work Phone: [phone] ALT [Catalytic activity/Vol] 19 U/L 16-61 [facility] Work Phone: [phone] CO2 [Moles/Vol] 29.0 mmol/L 21.0-32.0 [facility] Work Phone: [phone] Globulin (S) [Mass/Vol] 4.2 g/dL 2.2-4.2 [facility] Work Phone: [phone] Urea nitrogen/Creatinine [Mass ratio] 17.5 mg/mg 10-20 [facility] Work Phone: No Panel Informationon 10-22 Estimated GFR (MDRD) Amer 133 mL/min >60 [facility] Work Phone: Comment on above: GFR Calc Estimated GFR (MDRD) Non-Af Amer 110 mL/min >60 [facility] Work Phone: Comment on above: Non- GFR Calc Serum or plasma albumin inga urement (mass/volume)on 10-22-2021 Albumin [Mass/Vol] 3.3 g/dL 3.2-5.0 [facility] Work Phone: Serum or plasma albumin/glob ulin mass ratioon 10-22-2021 Albumin/Globulin [Mass ratio] 0.8 {ratio} 0.9-2.4 [facility] Work Phone: Serum or plasma calcium inga urement (mass/volume)on 10-22-2021 Calcium [Mass/Vol] 9.5 mg/dL 8.5-10.1 [facility] Work Phone: Serum or plasma cholesterol in HDL measurement (mass/volume)on 10-22-2021 Cholesterol in HDL [Mass/Vol] 50 mg/dL >40 [facility] Work Phone: Comment on above: The drugs N-Acetylcy steine and Metamizole may falsely depress this assay. Reference Range HDL <40 mg/dL Low HDL Cholesterol HDL >or= 60 mg/dL High HDL Cholesterol Serum or plasma cholesterol in VLDL measurement (mass/volume)on 10-22-2021 Cholesterol in VLDL [Mass/Vol] 11 mg/dL 5-40 [facility] Work Phone: Serum or plasma creatinine m easurement (mass/volume)on 10-22-2021 Creatinine [Mass/Vol] 0.74 mg/dL 0.70-1.30 [facility] Work Phone: Comment on above: The validity of the calculated GFR & GFRAA in patients over 70 years has not been determined. Clinical correlation is essential. Serum or plasma low density lipoprotein (LDL) cholesterol measurement (mass/volume)on 10-22-2021 Cholesterol in LDL [Mass/Vol] 64 mg/dL 0-130 [facility] Work Phone: Serum or plasma urea nitroge n measurement (mass/volume)on 10-22-2021 Urea nitrogen [Mass/Vol] 13 mg/dL 7-18 [facility] Work Phone: Thin prep Papanicolaou smear with manual screeningon 10-22-2021 Thin prep Papanicolaou smear with manual screening 17 U/L 15-37 [facility] Work Phone: Thin prep Papanicolaou smear with manual screening 7 5-15 [facility] Work Phone: Whole blood hemoglobin A1c/t otal hemoglobin ratio (mass fraction)on 10-22-2021 HbA1c (Bld) [Mass fraction] 6.8 % 3.8-5.6 [facility] Work Phone: Comment on above: Normal < 5.7 % Predi abetic 5.7 - 6.4 % Diabetic >or= 6.5 % Please note range changes. LABORATORYOrdered By: Rosemarie Blackburn on 05-12-2021 Basophil, Absolute 0.10 103/mcL Invalid Interpretation Code 0.00 - 0.19 10^3/mcL AO Auto Heme SS Basophils/100 WBC (Bld) 0.8 % Invalid Interpretation Code 0.0 - 2.5 % AO Auto Heme SS Eosinophil, Absolute 0.00 103/mcL Invalid Interpretation Code 0.00 - 0.40 10^3/mcL AO Auto Heme SS Eosinophils/100 WBC (Bld) 0.4 % Invali d Interpretation Code 0.0 - 7.0 % AO Auto Heme SS Erythrocyte distribution width (RBC) [Ratio] 14.5 % Invalid Interpretation Code 11.5 - 14.5 % AO Auto Heme SS ESR 15 minute reading (Bld) [Velocity] 50 mm/hr Invalid Interpretation Code 0 - 20 mm/hr AO Man Heme SS Hematocrit (Bld) [Volume fraction] 40.1 % Invalid Interpretation Code 42.0 - 52.0 % AO Auto Heme SS Hemoglobin (Bld) [Mass/Vol] 13.6 G/dL Invalid Interpretation Code 14.0 - 18.0 G/dL AO Auto Heme SS Lymphocyte, Absolute 1.40 103/mcL Invalid Interpretation Code 0.77 - 3.85 10^3/mcL AO Auto Heme SS Lymphocytes/100 WBC (Bld) 12.9 % Invali d Interpretation Code 10.0 - 50.0 % AO Auto Heme SS MCH (RBC) [Entitic mass] 29.2 pg Invalid Interpretation Code 27.0 - 31.2 pg AO Auto Heme SS MCHC (RBC) [Mass/Vol] 33.8 G/dL Invalid Interpretation Code 31.8 - 35.4 G/dL AO Auto Heme SS MCV (RBC) [Entitic vol] 86.2 fL Invalid Interpretation Code 80.0 - 94.0 fL AO Auto Heme SS Monocyte, Absolute 1.30 103/mcL Invalid Interpretation Code 0.15 - 1.00 10^3/mcL AO Auto Heme SS Monocytes/100 WBC (Bld) 12.6 % Invalid Interpretation Code 1.7 - 13.0 % AO Auto Heme SS Neutrophil, Absolute 7.70 103/mcL Invalid Interpretation Code 2.85 - 6.16 10^3/mcL AO Auto Heme SS Neutrophils/100 WBC (Bld) 73.3 % Invali d Interpretation Code 37.0 - 80.0 % AO Auto Heme SS Platelet mean volume (Bld) [Entitic vol] 8.4 fL Invalid Interpretation Code 7.4 - 10.4 fL AO Auto Heme SS Platelets (Bld) [#/Vol] 340 103/mcL Invalid Interpretation Code 130 - 400 10^3/mcL AO Auto Heme SS RBC (Bld) [#/Vol] 4.66 106/mcL Invalid Interpretation Code 4.04 - 6.13 10^6/mcL AO Auto Heme SS WBC (Bld) [#/Vol] 10.50 103/mcL Invalid Interpretation Code 4.60 - 10.80 10^3/mcL AO Auto Heme SS LABORATORYOrdered By: Sugar Brunson on 05-12-2021 CRP [Mass/Vol] 8.4 mg/dL Invalid Interpretation Code 0.0 - 0.9 mg/dL AO ADM SS LABORATORYOrdered By: ANDREW CARTER on 05-12-2021 CRYPF Path Review Negative Invalid Interpretation Code Path Review Subsection LABORATORYOrdered By: Kimberli Ruvalcaba on 05-12-2021 Fluid Nom (Body fld) Synovial fluid (05/12/21 8:13 PM) Invalid Interpretation Code AH Manual Heme SS LABORATORYOrdered By: Roxi Up on 05-12-2021 Appearance (Body fld) Turbid (05/12/21 12:00 PM) Invalid Interpretation Code AH Manual Heme SS Cells Counted Total (Unsp spec) [#] 100 Invalid Interpretation Code AH Manual Heme SS Color (Body fld) Yellow (05/12/21 12:00 PM) Invalid Interpretation Code AH Manual Heme SS Monocytes+Macrophages/100 WBC (Body fld) 4 1 Invalid Interpretation Code AH Manual Heme SS Neutrophils/100 WBC (Body fld) 96 % Invalid Interpretation Code 0 - 24 % Manual Heme SS WBC (Body fld) [#/Vol] 32836 10*3/uL Invalid Interpretation Code 0 - 199 /mm3 AH Manual Heme SS No Panel Informationon 05-12 Culture Body Fluid Culture has been received in lab and is no growth to date. Routine cultures are held for 5 days. [facility] Work Phone: GS Sedimented 4+ Polymorphonuclear cells 1+ Mononuclear cells No organisms seen. [facility] Work Phone: PROGRESSon 11-13-2019 PROGRESS HNO ID: [id number] Author: Roxanna Sheikh Service: ? Author Type: Physician Type: Progress Notes Filed: 11/13/2019 7:59 AM Note Text: [facility] [place] [facility], 11/05/2019: Hgb A1c 8.3% I still see no appointment scheduled, or consult requested, with me. Roxanna Sheikh MD, [facility] [place] [facility] [address] [place] [id number] P: [phone] F: [phone] [email or web address] Normal [facility] PROGRESSon 02-19-2019 PROGRESS HNO ID: [id number] Author: Roxanna Sheikh Service: ? Author Type: Physician Type: Progress Notes Filed: 02/19/2019 5:22 PM Note Text: [facility] lab, 01/26/2019: Glucose 146 BUN 8 Creat 0.73 T pro 7.2 Alb 3.3 Glob 3.9 Ca 8.5 AST 20 Alk Ph 73 ALT 26 T bili 0.30 Na 136 K 4.3 Cl 98 CO2 28 An gap 10 TSH 1.49 Chol 119 HDL 50 LDL 59 Trig 52 I have received and reviewed the outside records noted above. Roxanna Sheikh MD, [facility] Respiratory [place] Normal [facility] Vital Signs Date Time Vital Sign Value Performing Clinician Facility 02-11-2025 13:16-0400 Body temperature 98.2 [degF] Dr. Romy Slade MD Work Phone: [facility] 02-11-2025 13:16-0400 Diastolic blood pressure 78 mm[Hg] Dr. Romy Slade MD Work Phone: [facility] 02-11-2025 13:16-0400 Heart rate 89 /min Dr. Romy Slade MD Work Phone: [facility] 02-11-2025 13:16-0400 Respiratory rate 17 /min Dr. Romy Slade MD Work Phone: [facility] 02-11-2025 13:16-0400 SaO2% (BldA) [Mass fraction] 95 % Dr. Romy Slade MD Work Phone: [facility] 02-11-2025 13:16-0400 Systolic blood pressure 126 mm[Hg] Dr. Romy Slade MD Work Phone: [facility] 12-31-2024 11:17-0400 Body height 187.[address] Romy Slade MD Work Phone: [facility] 12-31-2024 11:17-0400 Body temperature 98 [degF] Dr. Romy Slade MD Work Phone: [facility] 12-31-2024 11:17-0400 Diastolic blood pressure 64 mm[Hg] Dr. Romy Slade MD Work Phone: [facility] 12-31-2024 11:17-0400 Heart rate 73 /min Dr. Romy Slade MD Work Phone: [facility] 12-31-2024 11:17-0400 Respiratory rate 17 /min Dr. Romy Slade MD Work Phone: [facility] 12-31-2024 11:17-0400 SaO2% (BldA) [Mass fraction] 93 % Dr. Romy Slade MD Work Phone: [facility] 12-31-2024 11:17-0400 Systolic blood pressure 138 mm[Hg] Dr. Romy Slade MD Work Phone: [phone] [place] [address] 11-20-2024 09:36-0400 Body height 187.[address] Romy Slade MD Work Phone: [phone] [place] [address] 11-20-2024 09:36-0400 Body mass index (BMI) [Ratio] 44.4 kg/m2 Dr. Romy Slade MD Work Phone: [phone] [address] 11-20-2024 09:36-0400 Body temperature 97.7 [degF] Dr. Romy Slade MD Work Phone: [phone] [place] [address] 11-20-2024 09:36-0400 Body weight 156.[address] Romy Slade MD Work Phone: [phone] [place] [address] 11-20-2024 09:36-0400 Diastolic blood pressure 65 mm[Hg] Dr. Romy Slade MD Work Phone: 8(716)713-368878 [place] [address] 11-20-2024 09:36-0400 Heart rate 69 /min Dr. Romy Slade MD Work Phone: [phone])117-736578 [place] [address] 11-20-2024 09:36-0400 Respiratory rate 16 /min Dr. Romy Slade MD Work Phone: [phone])431-082678 [place] [address] 11-20-2024 09:36-0400 SaO2% (BldA) [Mass fraction] 94 % Dr. Romy Slade MD Work Phone: [facility] 11-20-2024 09:36-0400 Systolic blood pressure 144 mm[Hg] Dr. Romy Slade MD Work Phone: [phone] [place] [address] 09-13-2023 15:22-0400 Body height 187.[address] Romy Slade Work Phone: [facility] 09-13-2023 15:22-0400 Body mass index (BMI) [Ratio] 45.7 kg/m2 Dr. Romy Slade Work Phone: [facility] 09-13-2023 15:22-0400 Body temperature 97.8 [degF] Dr. Romy Slade Work Phone: [facility] 09-13-2023 15:22-0400 Body weight 161.[address] Romy Slade Work Phone: [facility] 09-13-2023 15:22-0400 Diastolic blood pressure 70 mm[Hg] Dr. Romy Slade Work Phone: [facility] 09-13-2023 15:22-0400 Heart rate 76 /min Dr. Romy Slade Work Phone: [facility] 09-13-2023 15:22-0400 Respiratory rate 18 /min Dr. Romy Slade Work Phone: [facility] 09-13-2023 15:22-0400 SaO2% (BldA) [Mass fraction] 94 % Dr. Romy Slade Work Phone: [facility] 09-13-2023 15:22-0400 Systolic blood pressure 140 mm[Hg] Dr. Romy Slade Work Phone: [facility] 03-17-2023 15:36-0400 Body height 187.[address] Roym Slade Work Phone: [facility] 03-17-2023 15:36-0400 Body mass index (BMI) [Ratio] 44.3 kg/m2 Dr. Romy Slade Work Phone: [facility] 03-17-2023 15:36-0400 Body temperature 98 [degF] Dr. Romy Slade Work Phone: [facility] 03-17-2023 15:36-0400 Body weight 156.[address] Romy Slade Work Phone: [facility] 03-17-2023 15:36-0400 Diastolic blood pressure 70 mm[Hg] Dr. Romy Slade Work Phone: [facility] 03-17-2023 15:36-0400 Heart rate 78 /min Dr. Romy Slade Work Phone: [facility] 03-17-2023 15:36-0400 Respiratory rate 17 /min Dr. Romy Slade Work Phone: [facility] 03-17-2023 15:36-0400 SaO2% (BldA) [Mass fraction] 94 % Dr. Romy Slade Work Phone: [facility] 03-17-2023 15:36-0400 Systolic blood pressure 150 mm[Hg] Dr. Romy Slade Work Phone: [facility] 10-05-2022 08:50-0400 Body height 187.[address] Romy Slade Work Phone: [facility] 10-05-2022 08:50-0400 Body mass index (BMI) [Ratio] 44.4 kg/m2 Dr. Romy Slade Work Phone: [facility] 10-05-2022 08:50-0400 Body temperature 98 [degF] Dr. Romy Slade Work Phone: [facility] 10-05-2022 08:50-0400 Body weight 157.[address] Romy Slade Work Phone: [facility] 10-05-2022 08:50-0400 Diastolic blood pressure 70 mm[Hg] Dr. Romy Slade Work Phone: [facility] 10-05-2022 08:50-0400 Heart rate 76 /min Dr. Romy Slade Work Phone: [facility] 10-05-2022 08:50-0400 Respiratory rate 18 /min Dr. Romy Slade Work Phone: [facility] 10-05-2022 08:50-0400 SaO2% (BldA) [Mass fraction] 97 % Dr. Romy Slade Work Phone: [facility] 10-05-2022 08:50-0400 Systolic blood pressure 142 mm[Hg] Dr. Romy Slade Work Phone: [facility] 05-08-2022 11:11-0500 Body temperature 98.96 [degF] ROXANNA JENKINS MD [facility] 05-08-2022 11:11-0500 Diastolic Blood Pressure Non-Invasive 79 1 ROXANNA JENKINS MD [facility] 05-08-2022 11:11-0500 Heart rate 93 /min ROXANNA JENKINS MD [facility] 05-08-2022 11:11-0500 Respiratory rate 24 /min ROXANNA JENKINS MD [facility] 05-08-2022 11:11-0500 Systolic Blood Pressure Non-Invasive 160 1 ROXANNA JENKINS MD [facility] 05-13-2021 01:48-0500 Diastolic blood pressure 76 mm[Hg] KRISTI REICHFIELD DO [facility] 05-13-2021 01:48-0500 Heart rate 92 /min KRISTI REICHFIELD DO [facility] 05-13-2021 01:48-0500 Respiratory rate 20 /min KRISTI REICHFIELD DO [facility] 05-13-2021 01:48-0500 Systolic blood pressure 168 mm[Hg] KRISTI REICHFIELD DO [facility] 05-12-2021 22:17-0500 Diastolic blood pressure 68 mm[Hg] KRISTI REICHFIELD DO [facility] 05-12-2021 22:17-0500 Heart rate 87 /min KRISTI REICHFIELD DO [facility] 05-12-2021 22:17-0500 Respiratory rate 16 /min KRISTI REICHFIELD DO [facility] 05-12-2021 22:17-0500 Systolic blood pressure 131 mm[Hg] KRISTI REICHFIELD DO [facility] 05-12-2021 19:36-0500 Body height 188 cm KRISTI REICHFIELD DO [facility] 05-12-2021 19:36-0500 Body temperature 99.14 [degF] KRISTI REICHFIELD DO [facility] 05-12-2021 19:36-0500 Body weight 106.9 kg KRISTI REICHFIELD DO [facility] 05-12-2021 19:36-0500 Diastolic blood pressure 82 mm[Hg] KRISTI REICHFIELD DO [facility] 05-12-2021 19:36-0500 Heart rate 92 /min KRISTI REICHFIELD DO [facility] 05-12-2021 19:36-0500 Respiratory rate 18 /min KRISTI REICHFIELD DO [facility] 05-12-2021 19:36-0500 Systolic blood pressure 159 mm[Hg] KRISTI REICHFIELD DO [facility] 03-10-2021 12:28-0400 Body height 188 cm DHEERAJ MANSFIELD MD [facility] 03-10-2021 12:28-0400 Body temperature 98.24 [degF] DHEERAJ MANSFIELD MD [facility] 03-10-2021 12:28-0400 Body weight 152.7 kg DHEERAJ MANSFIELD MD [facility] 03-10-2021 12:28-0400 Diastolic blood pressure 71 mm[Hg] DHEERAJ MANSFIELD MD [facility] 03-10-2021 12:28-0400 Heart rate 91 /min DHEERAJ MANSFIELD MD [facility] 03-10-2021 12:28-0400 Respiratory rate 18 /min DHEERAJ MANSFIELD MD [facility] 03-10-2021 12:28-0400 Systolic blood pressure 143 mm[Hg] DHEERAJ MANSFIELD MD [facility] Encounters Encounter Date Encounter Type Care Provider Facility Start: 03-14-2025 End: 03-14-2025 ambulatory Hunglynnette Apontetiffany Facility[facility] Start: 02-11-2025 End: 02-11-[address] Hung Jameson MD -[facility] Work Phone: Start: 02-11-2025 End: 02-11-[address] Romy Slade MD Work Phone: -[facility] Start: 12-31-2024 End: 12-31-[address] Hung Jameson MD -[facility] Work Phone: Start: 12-31-2024 End: 12-31-[address] Romy Slade MD Work Phone: [facility] Start: 12-20-2024 End: 12-20-[address] Romy Slade MD Work Phone: -[facility] Start: 12-20-2024 End: 12-20-[address] Leela Hamm MD -[facility] Work Phone: Start: 12-20-2024 End: 12-20-2024 [facility] Start: 11-20-2024 End: 11-20-[address] Hung Jameson MD -[facility] Work Phone: Start: 11-20-2024 End: 11-20-[address] Romy Slade MD Work Phone: [facility] Work Phone: Start: 09-18-2024 End: 09-18-[address] Leela Hamm MD -[facility] Work Phone: Start: 09-18-2024 End: 09-18-2024 ambulatory Romy Slade Facility:[facility] Start: 06-22-2024 End: 06-22-2024 ambulatory Romy Slade Facility:[facility] Start: 04-13-2024 End: 04-13-2024 ambulatory Romy Slade Facility:[facility] Start: 03-29-2024 End: 03-29-2024 ambulatory Romy Slade Facility:[facility] Start: 09-14-2023 End: 09-14-[address] Romy Slade Work Phone: [facility] Work Phone: Start: 09-14-2023 End: 09-14-[address] Romy Slade Work Phone: [facility] Work Phone: Start: 09-13-2023 End: 09-13-[address] Romy Slade Work Phone: [facility] Work Phone: Start: 06-27-2023 End: 06-27-[address] Romy Slade Work Phone: [facility] Work Phone: Start: 06-27-2023 End: 06-27-[address] Romy Slade Work Phone: [facility] Work Phone: Start: 06-16-2023 End: 06-16-[address] Romy Slade Work Phone: [facility] Work Phone: Start: 06-16-2023 End: 06-16-[address] Romy Slade Work Phone: [facility] Work Phone: Start: 03-18-2023 End: 03-18-[address] Romy Slade Work Phone: [facility] Work Phone: Start: 03-18-2023 End: 03-18-[address] Romy Slade Work Phone: [facility] Work Phone: Start: 03-17-2023 End: 03-17-[address] Romy Slade Work Phone: [facility] Work Phone: Start: 03-14-2023 End: 03-14-[address] Romy Slade Work Phone: [facility] Work Phone: Start: 03-14-2023 End: 03-14-[address] Romy Slade Work Phone: [facility] Work Phone: Start: 12-15-2022 Non-patient / Non-visit Dr. Romy Slade Work Phone: [facility] Start: 12-15-2022 End: 12-15-[address] [facility] Work [facility]: Start: 12-07-2022 End: 12-07-[address] Romy Slade Work Phone: [facility] Work Phone: Start: 12-07-2022 End: 12-07-[address] Romy Slade Work Phone: [facility] Work Phone: Start: 10-05-2022 End: 10-05-[address] Romy Slade Work Phone: [facility] Work Phone: Start: 10-05-2022 End: 10-05-[address] Romy Slade Work Phone: [facility] Start: 10-05-2022 End: 10-05-[address] Romy Slade Work Phone: [facility] Start: 08-31-2022 End: 08-31-2022 ambulatory [facility] Work Phone: Start: 08-31-2022 End: 08-31-2022 Patient encounter procedure [facility] Start: 06-29-2022 End: 06-29-[address] Romy Slade Work Phone: [facility] Work Phone: Start: 06-29-2022 End: 06-29-[address] Romy Slade Work Phone: [facility] Start: 05-27-2022 End: 05-27-[address] Romy Slade Work Phone: [facility] Work Phone: Start: 05-27-2022 End: 05-27-[address] Romy Slade Work Phone: [facility] Start: 05-08-2022 End: 05-08-2022 Emergency department patient visit ROXANNA JENKINS Facility:[facility] Start: 05-08-2022 End: 05-08-2022 Emergency department patient visit ROXANNA JENKINS MD [facility] Start: 04-26-2022 Non-patient / Non-visit Dr. Romy Slade Work Phone: [facility] Start: 04-26-2022 End: 04-26-[address] Romy Slade Work Phone: [facility] Work Phone: Start: 04-26-2022 End: 04-26-[address] Romy Slade Work Phone: [facility] Start: 02-25-2022 End: 02-25-2022 ambulatory [facility] Work Phone: Start: 02-25-2022 End: 02-25-2022 Patient encounter procedure [facility] Start: 10-22-2021 End: 10-22-2021 Patient encounter procedure [facility] Start: 07-06-2021 End: 11-27-2021 ambulatory JULIEN STACK Facility:[facility] Start: 05-12-2021 End: 05-13-2021 Emergency department patient visit KRISTI JONAS [facility] Start: 03-10-2021 End: 03-10-2021 Emergency department patient visit DHEERAJ MANSFIELD MD [facility] Procedures Date Procedure Procedure Detail Performing Clinician Start: 12-20-2024 Urine microalbumin/creatinine ratio measurement Dr. Romy Slade MD Work Phone: Start: 12-20-2024 Vitamin D, 25-hydrox y measurement Dr. Romy Slade MD Work Phone: Comment on above: Vitamin D StatusDefi ciency: <20 ng/mL (50nmol/L)Insufficiency: 20-30 ng/mL (50-75 nmol/L)Sufficiency: 30-100 ng/mL (75-250 nmol/L)Toxicity: >100 ng/mL (>250 nmol/L) Start: 09-18-2024 Urine microalbumin/creatinine ratio measurement Dr. Romy Slade MD Work Phone: Comment on above: Previous reported re sult: 169.8 mg/g CREEdited by: SYMONE on 11/16/24:0752 AMENDED REPORT 11/16/24 0752 MALB:CREAT previously reported as: 169.8 mg/g CRE Start: 09-18-2024 Vitamin D, 25-hydrox y measurement Dr. Romy Slade MD Work Phone: Comment on above: Vitamin D StatusDefi ciency: <20 ng/mL (50nmol/L)Insufficiency: 20-30 ng/mL (50-75 nmol/L)Sufficiency: 30-100 ng/mL (75-250 nmol/L)Toxicity: >100 ng/mL (>250 nmol/L) Start: 06-27-2023 Plain x-ray of elbow Dr Ronny Slade Work Phone: Glaucoma (disorder) DHEERAJ RGULLON MD Comment on above: bilateral Hernia of abdominal cavity (disorder) DHEERAJ MANSFIELD MD Comment on above: umbilical None (qualifier value) DHEERAJ MANSFIELD MD Plan of Treatment Date Care Activity Detail Author Start: 03-18-20[address] [facility] Start: 03-18-2023 Urine immunofixation [facility] Albumin [Moles/volum e] in Serum or Plasma [facility] Albumin/Globulin ratio [facility] Electrophoresis: [id number] [facility] Electrophoresis: gamma globulin [facility] Globulin measurement [facility] IgA [Mass/volume] in Serum or Plasma [facility] IgG [Mass/volume] in Serum or Plasma [facility] IgM [Mass/volume] in Serum or Plasma [facility] Protein electrophore sis panel - Serum or Plasma [facility] Serum protein electrophoresis [facility] Payers Date Payer Category Payer Self-pay [id number] 2021 Medicare [id number] 2021 Unknown [id number] 2004 Private Health Insurance [id number] 2004 Unknown [id number] 1950 Unknown [id number] 2.16.8 [id number] 1950 Unknown [id number] 2.16.8 [id number] Unknown [id number] 2.16.8 [id number] Unknown [id number] 2.16.8 [id number] Unknown [id number] 2.16.8 [id number] Unknown [id number] 2.16.8 [id number] Unknown [id number] 2.16.8 [id number] Unknown [id number] 2.16.8 [id number] Unknown [id number] 2.16.8 [id number] Unknown [id number] 2.16.8 [id number] Unknown [id number] 2.16.8 [id number] Social History Date Type Detail Facility Start: 03-10-2021 Ex-smoker (finding) [facility] Sex Assigned At [facility] Start: 06-02-2013 End: 09-13-2023 Tobacco smoking status NHIS Unknown if ever smoked [facility] Start: 1950 Sex Assigned At [facility] Start: 09-13-2023 Tobacco smoking stat us NHIS Never smoked tobacco (finding) [facility] Functional Status Date Assessment Result Facility 05-08-2022 Functional Status Standard Safet y ID band on, Call device within reach, Bed in low position, Wheels locked, Upper/Half-Length side-rails up, Phone within reach, personal items within reach, Assistive devices within reach, Toileting device within reach, Bedside Cart Locked, Visitor at bedside, Safety level maintained [facility] Mental Status Date Assessment Result Facility 05-08-2022 Mental Status Orientation Oriented x 4 [facility] Clinical Notes 03-10-2021 to 11-20-2024 Note Date & Type Note Facility 11-20-2024 Evaluation note Diagnosis Onset Date Resolution Bilateral carpal tunnel syndrome acute November 20, 2024 9:32am Fatigue acute November 20 9:32am Knee pain chronic November 20 9:32am Polyneuropathy chronic November 20, 2024 9:32am [facility] Work Phone: 1(117) 804-356906-24-2025 Evaluation note* Diagnosis Onset Date Resolution Status Admit Date Bilateral carpal tunnel syndrome acute November 20, 2024 9:32am Fatigue acute November 20 9:32am Knee pain chronic November 20 9:32am Polyneuropathy chronic November 20, 2024 9:32am Fatigue acute December 31 10:39am Fatigue acute January 12:57pm [facility] Work Phone: 1(534) 680-992412-10-2022 Hospital Discharge instructions Patient Education 05/08/2022 14:40:25 Influenza (Adult) [...] may last for 1 to 2 weeks butmany people feel tired or fatigued for many [...] loosen secretions in your nose and lungs. Cyhi-lcv-hidywvo cold medicines will not make the flu [...] you are not getting better over the nextweek. If you are age 65 or older, [...] after getting better for a few days 7314-5152 [employer]. [address] [place] [address]. All rights reserved. This information is not intended as a substitute for professional medical care. Always follow yourhealthcare professional's instructions. Follow Up Care 05/08/2022 11:01:26 With:ROMY SLADE MD Address: [address] [place] [address] When:2-4 days With:Go to emergency room if symptoms worsen Address:Unknown When:2-4 days [facility] 12-10-2022 Note Discharge Instructions Thank you for allowing [facility] to assist you with your healthcare needs. The following is importantdischarge information regarding your hospital visit. Diagnosis from [...] Schedule the Following Appointments Follow Up with ROMY SLADE MD When Within 2-4 days Where: [address] [place] [address] Follow Up with Go to emergency room if symptoms worsen When Within 2-4 days Allergies NKA Medications Please ask your primary doctor or pharmacist before taking any other medication not listed, including over the counter drugs, herbal medications, vitamins and or supplements as they may interact withyour home medications. What How Much When Why [...] pharmacies. Medication Leaflets codeine and guaifenesin (KALE elam and korina sales sin) Allfen CD, Cheracol with Codeine, Cheratussin [...] breast milk and may cause drowsiness, breathing problems,or in a nursing baby. Do not breast-feed. [...] doses. Never share this medicine with another person,especially someone with a history of drug abuse or addiction. MISUSE OF NARCOTIC MEDICINE CAN CAUSEADDICTION, OVERDOSE, OR , especially in a child or other person using the medicine without a prescription. Selling or giving away codeine is against the law. Measure liquid medicine with the dosing syringe provided, or with a special dose-measuring spoon ormedicine cup. If you do not have a [...] Poison Help line at . A codeine overdosecan be fatal, especially in a child or other person using the medicine without a prescription. Overdose symptoms may include slow breathing and heart rate, severe drowsiness, muscle weakness, cold and clammy skin, pinpoint pupils, and fainting. What should I avoid while taking codeine and guaifenesin? This medicine may impair your thinking or reactions. Avoid driving or operating machinery until youknow how this medicine will affect you. Dizziness [...] older adults and those who are overweight, malnourished,or debilitated. Common side effects may include: constipation; or mild drowsiness. This is not a complete list of side effects and others may occur. Call your doctor for medical advice about side effects. You may report side effects to FDA at 9-134-FLM-8879. What other drugs will affect codeine and [...] with codeine and guaifenesin, including prescription and jnjz-loq-lrposau medicines, vitamins, and herbal products. Tell your [...] to ensure that the information provided by [employer]. ('[employer]') is accurate, up-to-date, and complete, but no guarantee is made to that effect. Drug information contained herein may be time sensitive. [employer] information has been compiled for use by healthcare practitioners and consumers in the [place] and therefore [employer] does not warrant that uses outside of the [place] are appropriate, unless specifically indicated otherwise. [employer] drug information does not endorse drugs, diagnose patients or recommend therapy. [employer] drug information isan informational resource designed to assist licensed healthcare practitioners in caring for their p atients and/or to serve consumers viewing this service as a supplement to, and not a substitute for, the expertise, skill, knowledge and judgment of healthcare practitioners. The absence of a warningfor a given drug or drug combination in no way should be construed to indicate that the drug or drug combination is safe, effective or appropriate for any given patient. [employer] does not assume any responsibility for any aspect of healthcare administered with the aid of information [employer] provides. The information contained herein is not intended to cover all possible uses, directions, precautions, warnings, drug interactions, allergic reactions, or adverse effects. If you have questions about the drugs you are taking, check with your doctor, nurse or pharmacist. Copyright 9336-4791 [employer]. Version: 8.02. Revision Date: 06/13/2017. oseltamivir (os [...] this medicine has any signs of unusual thoughtsor behavior. What is oseltamivir? Oseltamivir is an antiviral medication that blocks the actions of influenza virus types A and B in your body. Oseltamivir is used to treat flu symptoms caused by influenza virus in people who have had symptomsfor less than 2 days. Oseltamivir may also [...] younger than 2 weeks old. Children as youngas 1 year old may use zanamivir to [...] your next dose is due in less than2 hours. Do not use two doses at [...] may report side effects to FDA at 2-006-MMF-4266. What other drugs will affect oseltamivir? Other drugs may affect oseltamivir, including prescription and bnpv-tth-ejoycgu medicines, vitamins, and herbal products. Tell your [...] to ensure that the information provided by [employer]. ('[employer]') is accurate, up-to-date, and complete, but no guarantee is made to that effect. Drug information contained herein may be time sensitive. [employer] information has been compiled for use by healthcare practitioners and consumers in the [place] and therefore [employer] does not warrant that uses outside of the [place] are appropriate, unless specifically indicated otherwise. [employer] drug information does not endorse drugs, diagnose patients or recommend therapy. [employer] drug information isan informational resource designed to assist licensed healthcare practitioners in caring for their p atients and/or to serve consumers viewing this service as a supplement to, and not a substitute for, the expertise, skill, knowledge and judgment of healthcare practitioners. The absence of a warningfor a given drug or drug combination in no way should be construed to indicate that the drug or drug combination is safe, effective or appropriate for any given patient. [employer] does not assume any responsibility for any aspect of healthcare administered with the aid of information [employer] provides. The information contained herein is not intended to cover all possible uses, directions, precautions, warnings, drug interactions, allergic reactions, or adverse effects. If you have questions about the drugs you are taking, check with your doctor, nurse or pharmacist. Copyright 9271-4389 [employer]. Version: 12.02. Revision Date: 02/21/2018. Education Materials Influenza (Adult) [...] may last for 1 to 2 weeks butmany people feel tired or fatigued for many [...] loosen secretions in your nose and lungs. Blke-mlh-afxfstx cold medicines will not make the flu [...] you are not getting better over the nextweek. If you are age 65 or older, [...] after getting better for a few days 0573-5746 [employer]. [address] [place] [address], [place] [address]. All rights reserved. This information is not intended as a substitute for professional medical care. Always follow yourhealthcare professional's instructions. Additional Information VACCINATE! IT SAVES LIVES! Members of the community who have not yet received the COVID-19 vaccine and would like to receive it can visit one of [facility] vaccine clinics. There are many vaccine clinic locations within the [facility]. For locations and available times, please visit [email or web address]. It is important to note that some COVID mobile vaccine clinics are held outdoors and may be canceled in rainy orstormy conditions. To learn more about pediatric vaccinations (ages 5-11), we invite you to visit the [facility] webpage. [email or web address] [email or web address] learn more about the COVID-19 vaccine, we invite you to visit the [facility] website for a list of frequently asked questions. [email or web address] [facility] Patient Portal Access Instructions: Stay connected with your healthcare team and access your personal medical information anytime with the [facility] [employer] [employer] Patient Portal. If you would like a full copy of your medical records please contact the [facility] Medical Records Department Tuesday through Tuesday between 8a.m. and 4:30p.m. Please follow the directions below to access the portal: 1.Access the email account you provided upon registration to the [facility].2.Look for an invitation email from [facility].3.Open the email and access the invitation link: Accept Invitation to [facility]4.Fill in the required layne to create your account. Sign into www.[employer] with your username and password that you [...] you will allow to register on the [employer] Patient Portal for access to your information. You can also access the [employer] Patient Portal on the [employer]. Simply click on "Health Records" under "[employer]" and then click on the [facility] logo. HOW TO SAFELY DISPOSE OF PRESCRIPTION MEDICATIONS Please use one of the following methods to safely dispose of your unused medications. 1.Use a drug disposal kit: the drug disposal pouch allows you to safely discard your old and unuseddrugs. Ask your nurse to give you one when you are discharged.2.Visit a local take-back location: Many local pharmacies and police departments have programs that collect old and unwanted prescriptiondrugs. Call your local pharmacy or go to http://Buzzni.Proviation/2J6Qw5k to find one close to you.3.Make use of household items: Use cat litter or old coffee grounds to dispose medications if other options arenot available. Mix your drugs with these household products, seal them in an airtight container andthrow it into the garbage. Call [facility]: [phone] to be sure your drugs can be [...] drowsiness, such as benzodiazepines, also known as benzos,including diazepam and alprazolam, muscle relaxants or sleep aids. Never sell or share prescriptionopioids. This is illegal. Store opioids in a [...] aware that I should contact my doctor. 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: Date/Time: Relationship to Patient: Witness Name/Signature: Date/Time: [facility]12-10-2022 Note ORIGINAL EXAMINATION: TWO XRAY VIEWS OF [...] Sign Date: 05/08/2022 12:17:12 PM Ordering Provider: [facility]12-10-2022 Note ORIGINAL EXAMINATION: TWO XRAY VIEWS OF [...] Sign Date: 05/08/2022 12:17:12 PM Ordering Provider: [facility]12-10-2022 SARS-CoV-2 (COVID-19) RNA KHOA+probe Ql (Nph)Negative *NA* (05/08/22 11:24 AM)AO Auto Urine [id number] Hospital Discharge instructions Patient Education 05/13/2021 00:30:11 Osteoarthritis Osteoarthritis Osteoarthritis (also called degenerative joint disease) happens when the cartilage in a joint becomes damaged and worn. This may be due to age, wear and tear, overuse of the joint, or other problems.Osteoarthritis can affect any joint. But it is [...] just after awakening can help relax the muscleand soothe the joints. Ice helps relieve pain [...] the joint from becoming weak. It also helpsmaintain function in the joint. Be as active [...] joint or bear weight on the joint [id number] [employer]. [address] [place] [address]. All rights reserved. This information is not intended as a substitute for professional medical care. Always follow yourhealthcare professional's instructions. Follow Up Care 05/12/2021 19:33:40 With:ALISON BRUNSON MD, Orthopedic Address: [address] [place] [address] [place] [address]- When:2-4 days With:Go to emergency room if symptoms worsen Address:Unknown When:2-4 days With:ROMY SLADE MD Address: [address] [place] [id number]- When:2-4 days [facility] 10-12-2021 Hospital Discharge instructions Patient Education 03/10/2021 15:41:24 R.I.C.E. RICE [...] and reduce pain. Don t place ice directlyon your skin. Wrap a cold pack or [...] worsens and is not improved with elevation. 4220-0400 [employer]. [address] [place] [address]. All rights reserved. This information is not intended as a substitute for professional medical care. Always follow yourhealthcare professional's instructions. Follow Up Care 03/10/2021 12:12:53 With:ROMY SLADE MD Address: [address] [place] [phone]- When:2-4 days [facility] Evaluation + Plan note No data available for this section [facility] Evaluation noteNo assessment information available [facility] Work Phone: Evaluation note* Diagnosis Onset Date Resolution Status Bilateral carpal tunnel syndrome acute Knee pain chronic Polyneuropathy chronic [facility] Work Phone: Evaluation note* Diagnosis Onset Date Resolution Status Bilateral carpal tunnel syndrome acute Polyneuropathy chronic [facility] Work Phone: Reason for referral (narrative)No reason for [facility] Summary Purpose Family History No Family History Records Found Relationship Condition Age at Onset Recorded Date/T rich mother Diabetes mellitus Unknown Cardiac disease Unknown father Cardiac disease Unknown Diabetes mellitus Unknown Advance Directives No Advanced Directives Records FoundNo Advanced Directives Records FoundNo Advanced Directives Records Found Chief Complaint and Reason for Visit Chief Complaint Admit Date 8 mo fu November 20, 2024 9:32 am B12 inject December 31, 2024 10: 39am Reason for Visit Admit Date Bilateral carpal tunnel syndrome November 202024 9:32am Fatigue November 20, 2024 9:32 am Knee pain November 20, 2024 9:32 am Polyneuropathy November 20, 2024 9:32 am Chief Complaint PERIPHERAL NEUROPATH Y PERIPHERAL NEUROPATHY Chief Complaint PERIPHERAL NEUROPATH Y PERIPHERAL NEUROPATHY LEFT CHEEK NEOPLASM Chief Complaint LEFT CHEEK NEOPLASM Chief Complaint LEFT CHEEK NEOPLASM PERIPHERAL NEUROPATHY EORDER Reason for Visit Bilateral carpal miracle tayo syndrome Knee pain Polyneuropathy Chief Complaint PERIPHERAL NEUROPATH Y EORDER Reason for Visit Bilateral carpal miracle tayo syndrome Knee pain Polyneuropathy Chief Complaint BILATERAL CARPAL MIRACLE TAYO BILATERAL CARPAL TUNNEL 4 M FU EORDER Reason for Visit Bilateral carpal miracle tayo syndrome Polyneuropathy Chief Complaint BILATERAL CARPAL MIRACLE TAYO BILATERAL CARPAL TUNNEL 4 M FU EORDER Reason for Visit Bilateral carpal miracle tayo syndrome Knee pain Polyneuropathy Chief Complaint 4 M FU EORDER Reason for Visit Bilateral carpal miracle tayo syndrome Knee pain Polyneuropathy Chief Complaint 6 M FU Chief Complaint Admit Date 8 mo fu November 20, 2024 9:32 am Chief Complaint Admit Date 8 mo fu November 20, 2024 9:32 am B12 inject December 31, 2024 10: 39am B12 inject February 11, 2025 12:57pm Reason for Visit Admit Date Bilateral carpal tunnel syndrome November 202024 9:32am Fatigue November 20, 2024 9:32 am Knee pain November 20, 2024 9:32 am Polyneuropathy November 20, 2024 9:32 am Fatigue December 31, 2024 10: 39am Fatigue February 11, 2025 12:57pm Additional Source Comments (unrecognized sect ion and content) No Status Records FoundNo Status Records FoundNo Status Records Found INFORMATION SOURCE (unrecogn ized section and content) DATE CREATED AUTHOR 11/13/2019 [facility] DATE CREATED AUTHOR AUTHOR'S ORGANIZ ATION 05/21/2022 [facility] ([place]) DATE CREATED AUTHOR AUTHOR'S ORGANIZ ATION 03/16/2025 [facility] Goals (unrecognized section and content) Goals may be documented in a n alternate section Care Team (unrecognized sect ion and content) Care Team Personnel Name: ROMY SLADE MD Member Role: Primary Care Physician Address: Address: [address] [place], [place] [address] Name: ROXANNA JENKINS MD Position: ED Physician Member Role: ED Physician Address: Address: [facility] [address] [place], [place] [address] Care Team Related Persons Name: SAY JAZMYN Name: JAZMYN DEAL Name: JAZMYN DEAL Care Teams (unrecognized sec tion and content) Team Status: Active Member Role Status Dates Dr. Romy Slade MD Family Provider Active Dr. Romy Slade MD Primary Care Provider Active Team Status: Active Member Role Status Dates Dr. Romy Slade MD Primary Care Provider Active Dr. Vargas Campbell DPM Referring Provider, Other Pr ovider Active Dr. Casey Le DO Attending Provider Active Team Status: Inactive Member Role Status Dates Dr. Romy Slade MD Primary Care Provider Active Dr. Vargas Campbell DPM Attending Provider Active Team Status: Inactive Member Role Status Dates Dr. Romy Slade MD Primary Care Provider Active HANSEL CARREON Attending Provider, Referring Provider A ctive Team Status: Inactive Member Role Status Dates Dr. Romy Slade MD Primary Care Provider Active Dr. Inocente Reza MD Attending Provider Active Team Status: Inactive Member Role Status Dates Dr. Romy Slade MD Primary Care Provider Active Dr. Leela Hamm MD Attending Provider, Referring Pr ovider Active Team Status: Inactive Member Role Status Dates Dr. Romy Slade MD Primary Care Provider, Referrin g Provider Active Dr. Hung Jameson MD Attending Provider Active Team Status: Inactive Member Role Status Dates Dr. Romy Slade MD Primary Care Provider Active Dr. Hung Jameson MD Attending Provider, Referring Provider Active Team Status: Active Member Role Status Dates Dr. Romy Slade MD Primary Care Provider Active Dr. Hung Jameson MD Referring Provider, Other Pro vider Active Dr. Angel Ramos MD Attending Provider Active Team Status: Active Member Role Status Dates Dr. Romy Slade MD Primary Care Provider Active Dr. Hung Jameson MD Attending Provider, Referring Provider Active Team Status: Inactive Member Role Status Dates Dr. Romy Slade MD Primary Care Provider Active Dr. Tex Earl MD Attending Provider, Referring Pr ovider Active Team Status: Inactive Member Role Status Dates Dr. Romy Slade MD Primary Care Provider Active Start: September 18, 2024 End: September 18, 2024 Dr. Leela Hamm MD Attending Provider Active Start: September 18, 2024 End: September 18, 2024 Dr. Leela Hamm MD Referring Provider Active Start: September 18, 2024 End: September 18, 2024 Team Status: Inactive Member Role Status Dates Dr. Romy Slade MD Primary Care Provider Active Start: November 20, 2024 End: November 20, 2024 Dr. Romy Slade MD Referring Provider Active Start: November 20, 2024 End: November 20, 2024 Dr. Hung Jameson MD Attending Provider Active Start: November 20, 2024 End: November 20, 2024 Team Status: Active Member Role/Relationship Status Dates Dr. Romy Slade MD Family Provider Active Gume Ignacio MD Primary Care Provider Active Team Status: Inactive Member Role/Relationship Status Dates Dr. Romy Slade MD Primary Care Provider Active Start: September 18, 2024 End: September 18, 2024 Dr. Leela Hamm MD Attending Provider Active Start: September 18, 2024 End: September 18, 2024 Dr. Leela Hamm MD Referring Provider Active Start: September 18, 2024 End: September 18, 2024 Team Status: Inactive Member Role/Relationship Status Dates Dr. Romy Slade MD Primary Care Provider Active Start: November 20, 2024 End: November 20, 2024 Dr. Romy Slade MD Referring Provider Active Start: November 20, 2024 End: November 20, 2024 Dr. Hung Jameson MD Attending Provider Active Start: November 20, 2024 End: November 20, 2024 Team Status: Inactive Member Role/Relationship Status Dates Gume Ignacio MD Primary Care Provider Active St art: December 20, 2024 End: December 20, 2024 Dr. Leela Hamm MD Attending Provider Active Start: December 20, 2024 End: December 20, 2024 Dr. Leela Hamm MD Referring Provider Active Start: December 20, 2024 End: December 20, 2024 Team Status: Inactive Member Role/Relationship Status Dates Dr. Romy Slade MD Primary Care Provider Active Start: November 20, 2024 End: November 20, 2024 Dr. Hung Jameson MD Attending Provider Active Start: November 20, 2024 End: November 20, 2024 Dr. Hung Jameson MD Referring Provider Active Start: November 20, 2024 End: November 20, 2024 Team Status: Inactive Member Role/Relationship Status Dates Gume Ignacio MD Primary Care Provider Active St art: December 31, 2024 End: December 31, 2024 Gume Ignacio MD Referring Provider Active Start : December 31, 2024 End: December 31, 2024 Dr. Hung Jameson MD Attending Provider Active Start: December 31, 2024 End: December 31, 2024 Team Status: Inactive Member Role/Relationship Status Dates Dr. Romy Slade MD Primary Care Provider Active Start: November 20, 2024 End: November 20, 2024 Dr. Hung Jameson MD Attending Provider Active Start: November 20, 2024 End: November 20, 2024 Dr. Hung Jameson MD Referring Provider Active Start: November 20, 2024 End: November 20, 2024 Team Status: Inactive Member Role/Relationship Status Kyara Ignacio MD Primary Care Provider Active St art: December 20, 2024 End: December 20, 2024 Dr. Leela Hamm MD Attending Provider Active Start: December 20, 2024 End: December 20, 2024 Dr. Leela Hamm MD Referring Provider Active Start: December 20, 2024 End: December 20, 2024 Team Status: Inactive Member Role/Relationship Status Kyara Ignacio MD Primary Care Provider Active St art: December 31, 2024 End: December 31, 2024 Gume Ignacio MD Referring Provider Active Start : December 31, 2024 End: December 31, 2024 Dr. Hung Jameson MD Attending Provider Active Start: December 31, 2024 End: December 31, 2024 Team Status: Inactive Member Role/Relationship Status Kyara Ignacio MD Primary Care Provider Active St art: February 11, 2025 End: February 11, 2025 Gume Ignacio MD Referring Provider Active Start : February 11, 2025 End: February 11, 2025 Dr. Hung Jameson MD Attending Provider Active Start: February 11, 2025 End: February 11, 2025 FOR RECORDS PERTAINING TO PATIENTS WHO ARE [...] BE BASED ON THE PRIMARY CLINICAL RECORDS. [facility] [employer] [facility]. provides no warranty or guarantee of the accuracy or completeness of information in this document.
[2025-03-20 10:59] LABS: AST(SGOT) 24 U/L (<=37); Alanine Aminotransfer ALT/SGPT 19 U/L (<=46); Albumin, Serum 3.7 g/dL (3.4-4.8); Alkaline Phosphatase 90 U/L (40-129); Anion Gap 10 (5-15); BUN 8 mg/dL (4-19); BUN/Creat Ratio 9.8 RATIO (10-20); Calcium,Total 9.5 mg/dL (7.6-11.0); Carbon Dioxide 27.5 mmol/L (21.0-32.0); Chloride 98 mmol/L (98-108); Cholesterol 147 mg/dL (<=200); Globulin 3.1 g/dL (2.2-4.2); Glucose 190 mg/dL (70-99); Low Density Lipoprotein Calc. 87 mg/dL; Potassium 4.8 mmol/L (3.3-5.1); Triglycerides 87 mg/dL; Very Low Density Lipoprotein 17 mg/dL (5-40); cholesterol:hdl ratio screen 3.36
== END | disposition home or self-care (01) ==
LOC: MTLAB 09:16
PROVIDERS: PCP Family Medicine; Referring Provider Internal Medicine Endocrinology, Diabetes & Metabolism; Visit Provider Internal Medicine Endocrinology, Diabetes & Metabolism
DX: E11.65 Type 2 diabetes mellitus with hyperglycemia (principal); E11.42 Type 2 diabetes mellitus with diabetic polyneuropathy; E78.2 Mixed hyperlipidemia
CPT/HCPCS: 36415; 80053; 80061; 83036

== ENCOUNTER → 2025-05-03 | Outpatient (CLI) | payer MEDICARE, BC, OTHER, SELFPAY ==
[2025-05-03 13:26] LABS: Hematocrit 39.8 % (40-54); Hemoglobin 13.1 g/dL (13.0-16.5); Immature Granulocytes Count 0.030 X10^3/uL (0.0-0.0); Mean Corp Hgb Conc 32.9 g/dL (32-36); Mean Corpuscular Volume 90.0 fL (80-94); Mean Platelet Vol. 10.7 fl (6.2-12.0); NRBC Flagged by Analyzer 0 % (0-5); Platelet Count 293 K/mm3 (150-450); RBC Distribution Width CV 13.0 % (11.6-14.6); RBC Distribution Width SD 43.2 fl (35.1-43.9); Red Blood Count 4.42 M/mm3 (4.6-6.2); White Blood Count 7.7 K/mm3 (4.4-11.0)
[2025-05-03 14:15] LABS: PSA,Total - Annual Screen 0.23 ng/mL (0.02-4.00)
== END | disposition home or self-care (01) ==
PROVIDERS: PCP Family Medicine; Referring Provider Internal Medicine Pulmonary Disease; Visit Provider Internal Medicine Pulmonary Disease
DX: Z12.5 Encounter for screening for malignant neoplasm of prostate (principal); J44.9 Chronic obstructive pulmonary disease, unspecified
CPT/HCPCS: 36415; 84153; 85025; G0103